=== PATIENT | female | born 1960 | race Caucasian/White ===

== ENCOUNTER 2019-01-04 07:32 | Inpatient (IN) | payer MEDICAID, OTHER ==
[~2019-01-04] VITALS: Ht 172.7 cm; Wt 82.2 kg
[2019-01-04] VITALS (12 sets, daily range): BP systolic 107–190; BP diastolic 61–128
[~2019-01-04 07:32] MED LIST: ALBU8.5H4 IH; AMLO1TAB13; HCTZ25T PO; LOP25T PO; SILV50CR31 TP
[2019-01-04 09:24] LABS: BASOPHILS % (AUTO) 0.2 % (0-1); EOSINOPHILS % (AUTO) 0.1 % (0-6); HEMATOCRIT 35.9 % (35.0-45.0); HEMOGLOBIN 12.3 g/dl (12.0-16.0); LYMPHOCYTES % (AUTO) 5.6 % (21-51); MEAN CORPUSCULAR HEMOGLOBIN 32.7 PG (27.0-31.0); MEAN CORPUSCULAR HGB CONC 34.3 g/dL (33.0-36.5); MEAN CORPUSCULAR VOLUME 95.5 FL (78-98); MEAN PLATELET VOLUME 6.8 FL (7.4-10.4); MONOCYTES # (AUTO) 1.1 X10'3 (0-0.9); MONOCYTES % (AUTO) 6.3 % (2-12); NEUTROPHILS % (AUTO) 87.8 % (42-75); PLATELET COUNT 147 X10'3 (140-440); RED BLOOD COUNT 3.75 X10'6 (4.20-5.60); RED CELL DISTRIBUTION WIDTH 14.5 % (11.5-14.5); WHITE BLOOD COUNT 18.2 X10'3 (4.5-11.0)
[2019-01-04 09:39] LABS: ALANINE AMINOTRANSFERASE 29 U/L (12-78); ALBUMIN 2.8 G/DL (3.4-5.0); ALBUMIN/GLOBULIN RATIO 0.6 (1.1-1.5); ALKALINE PHOSPHATASE 249 IU/L (46-116); ANION GAP 10 (8-16); ASPARTATE AMINO TRANSFERASE 47 U/L (10-37); BILIRUBIN,TOTAL 1.6 MG/DL (0.1-1.0); BLOOD UREA NITROGEN 10 MG/DL (7-18); BUN/CREATININE RATIO 23.3 (6.6-38.0); CHLORIDE 98 MMOL/L (99-107); CREATININE 0.43 MG/DL (0.40-0.90); GLUCOSE 128 MG/DL (70-104); POTASSIUM 3.4 MMOL/L (3.5-5.1); SODIUM 133 MMOL/L (135-145); TOTAL CARBON DIOXIDE 25.2 MMOL/L (24-32); TOTAL PROTEIN 7.7 G/DL (6.4-8.2); eGFR > 90 ML/MIN
[2019-01-04] MEDS ORDERED: normal saline 1000ML IV soln IV ONE (10:05)
[2019-01-04] MEDS ORDERED: piperacillin/tazo 4.5gm/100ml 100 ML IV ONE (10:05)
[2019-01-04 10:13] LABS: URINE HCG NEGATIVE (NEG)
[2019-01-04] MEDS ORDERED: LIDOcaine 1%/PF 5ML 10 MG/ML VIAL SQ ONE (10:15)
[2019-01-04] MEDS ORDERED: fentaNYL/PF 50MCG/1 ML 2ML syringe IV PRN (10:15)
[2019-01-04] MEDS ORDERED: midazolam 2 mg/2 ml injection IV PRN (10:15)
[2019-01-04 10:16] LABS: CLARITY,URINE CLEAR (Clear); GLUCOSE, URINE 100 mg/dl (Neg); KETONES,URINE >=80 mg/dl (Neg); LEUKOCYTE ESTERASE ,URINE NEGATIVE (Neg); NITRITES, URINE NEGATIVE (Neg); OCCULT BLOOD,URINE NEGATIVE (Neg); PROTEIN,URINE NEGATIVE (Neg); UROBILINOGEN,URINE >=8.0 E.U/dL (0.2-1.0)
[2019-01-04 10:17] LABS: UA COLLECTION TYPE FOLEY CATH
[2019-01-04 10:22] LABS: COLOR,URINE ORANGE (Yellow)
[2019-01-04 10:24] LABS: BACTERIA,URINE FEW /HPF (Neg); HYALINE CASTS 0-3 /LPF (NEGATIVE); RBC,URINE NONE SEEN /HPF (0-2); SQUAMOUS EPITHELIAL CELL,UR MANY /LPF (FEW); WBC,URINE 0-4 /HPF (0-4)
[2019-01-04 10:26] LABS: MUCUS STRANDS MODERATE /LPF (Neg); TRANSITIONAL EPI CELLS,URINE FEW /HPF
[2019-01-04] MEDS: normal saline 1000ml 1,000 ML IV SCH ×2 (10:44→21:16)
[2019-01-04] MEDS ORDERED: magnesium 2GM in 50ml NS 50 ML IV PRN (10:45)
[2019-01-04] MEDS ORDERED: diphenhydrAMINE 25mg capsule PO PRN (10:45)
[2019-01-04] MEDS ORDERED: ondansetron/PF 4mg/2ml inj IV PRN (10:45)
[2019-01-04] MEDS ORDERED: mag hydrox/Alum hydrox/simeth 30ml oral suspension PO PRN (10:45)
[2019-01-04] MEDS ORDERED: diphenhydrAMINE 50 mg/ml inj IV PRN (10:45)
[2019-01-04] MEDS ORDERED: acetaminophen 325mg tablet PO PRN ×2 (10:45)
[2019-01-04] MEDS ORDERED: HYDROcodone/acetaminophen 5mg/325mg tablet PO PRN (10:45)
[2019-01-04] MEDS ORDERED: metoclopramide 5 mg/ml inj IV PRN (10:45)
[2019-01-04] MEDS ORDERED: HYDROcodone/acetaminophen 10/325mg tab PO PRN (10:45)
[2019-01-04] MEDS ORDERED: potassium CL 10mEq/100ml bag 100 ML IV PRN ×2 (10:45)
[2019-01-04] MEDS ORDERED: bisacodyl 10mg suppository rectal RC PRN (10:45)
[2019-01-04] MEDS ORDERED: magnesium 4gm in 100ml NS 100 ML IV PRN (10:45)
[2019-01-04] MEDS ORDERED: magnesium hydroxide 30ml (MOM) UD suspension PO PRN (10:45)
[2019-01-04] MEDS ORDERED: CALC1TAB96 PO (10:58)
[2019-01-04] MEDS ORDERED: AMLO1CAP10 PO (10:58)
[2019-01-04] MEDS ORDERED: METO-411 PO (11:04)
--- NOTE | 2019-01-04 11:35 | NUR ---
attempted to call report to the surgical floor, advised to call back because nurse is with the doctor
[2019-01-04] MEDS ORDERED: midazolam 2 mg/2 ml injection ONE (11:38)
[2019-01-04] MEDS ORDERED: fentaNYL/PF 50MCG/1 ML 2ML syringe ONE ×2 (11:38→12:05)
[2019-01-04 11:51] LABS: MAGNESIUM 1.2 MG/DL (1.5-2.4)
[2019-01-04 11:54] LABS: PARTIAL THROMBOPLASTIN TIME 33 SECONDS (22-32)
--- NOTE | 2019-01-04 11:58 | NUR ---
GAVE REPORT TO SURGICAL NURSE, PATIENT CURRENTLY IN IR FOR PROCEDURE AND THEN WILL BE TRANSFERRED TO THE FLOOR
--- NOTE | 2019-01-04 12:03 | NUR ---
Patient in room ED 11. I have received report from Montserrat PIMENTEL and had the opportunity to ask questions and assume patient care. Patient has been reported as being currently in IR.
[2019-01-04] MEDS: potassium Cl 20 mEq SR tablet PO PRN ×2 (13:34→19:52)
[2019-01-04] MEDS: piperacillin/tazo 3.375gm/50ml 50 ML IV SCH ×2 (17:11→23:59)
--- NOTE | 2019-01-04 18:29 | NUR ---
Patient in room BA 346. I have received report from MARGARITO Beasley and had the opportunity to ask questions and assume patient care.
[2019-01-04] MEDS ORDERED: temazepam 15mg capsule PO PRN (21:00)
[2019-01-05] VITALS: BP 111/60
[2019-01-05 05:10] LABS: BASOPHILS % (AUTO) 0.1 % (0-1); EOSINOPHILS % (AUTO) 0.1 % (0-6); HEMATOCRIT 33.1 % (35.0-45.0); HEMOGLOBIN 11.3 g/dl (12.0-16.0); LYMPHOCYTES # (AUTO) 2.4 X10'3 (1.1-4.8); LYMPHOCYTES % (AUTO) 15.4 % (21-51); MEAN CORPUSCULAR HEMOGLOBIN 32.7 PG (27.0-31.0); MEAN PLATELET VOLUME 7.2 FL (7.4-10.4); MONOCYTES # (AUTO) 0.9 X10'3 (0-0.9); MONOCYTES % (AUTO) 6.1 % (2-12); NEUTROPHILS # (AUTO) 12.2 X10'3 (1.8-7.7); NEUTROPHILS % (AUTO) 78.3 % (42-75); PLATELET COUNT 132 X10'3 (140-440); RED BLOOD COUNT 3.45 X10'6 (4.20-5.60); RED CELL DISTRIBUTION WIDTH 14.8 % (11.5-14.5); WHITE BLOOD COUNT 15.6 X10'3 (4.5-11.0)
[2019-01-05 05:30] LABS: ANION GAP 10 (8-16); BILIRUBIN,TOTAL 1.4 MG/DL (0.1-1.0); BLOOD UREA NITROGEN 6 MG/DL (7-18); BUN/CREATININE RATIO 11.8 (6.6-38.0); CALCIUM 8.3 MG/DL (8.5-10.1); CHLORIDE 103 MMOL/L (99-107); CREATININE 0.51 MG/DL (0.40-0.90); GLUCOSE 90 MG/DL (70-104); MAGNESIUM 1.3 MG/DL (1.5-2.4); PHOSPHORUS 2.6 MG/DL (2.3-4.5); POTASSIUM 3.3 MMOL/L (3.5-5.1); SODIUM 136 MMOL/L (135-145); TOTAL CARBON DIOXIDE 23.4 MMOL/L (24-32); TOTAL PROTEIN 6.7 G/DL (6.4-8.2); eGFR > 90 ML/MIN
[2019-01-05 05:31] LABS: ALANINE AMINOTRANSFERASE 20 U/L (12-78); ALBUMIN 2.3 G/DL (3.4-5.0); ALBUMIN/GLOBULIN RATIO 0.5 (1.1-1.5); ALKALINE PHOSPHATASE 202 IU/L (46-116); ASPARTATE AMINO TRANSFERASE 28 U/L (10-37)
--- NOTE | 2019-01-05 06:22 | NUR ---
Problems reprioritized. Patient report given, questions answered & plan of care reviewed with MARGARITO Brooks.
--- NOTE | 2019-01-05 07:07 | NUR ---
Patient in room BA 346. I have received report from Todd PIMENTEL and had the opportunity to ask questions and assume patient care.
[2019-01-05 07:31] VITALS: BP 121/64
[2019-01-05] MEDS: magnesium Cl slow-release 64mg tablet PO PRN ×2 (07:57→15:06)
[2019-01-05] MEDS: enoxaparin 40mg/0.4ml syringe SQ SCH (07:58)
[2019-01-05] MEDS: piperacillin/tazo 3.375gm/50ml 50 ML IV SCH ×3 (07:59→23:21)
[2019-01-05] MEDS: potassium Cl 20 mEq SR tablet PO PRN ×2 (08:00→15:06)
[2019-01-05] MEDS: K and/or MAG REPLACEMENT MC SCH (08:00)
[2019-01-05] MEDS: normal saline 1000ml 1,000 ML IV SCH ×2 (08:01→17:13)
[2019-01-05 12:29] VITALS: BP 135/70
--- NOTE | 2019-01-05 13:58 | NUR ---
Malnutrition consult: Pt seen at bedside reports decreased PO intake r/t pain however upon meal review pt reports still eating three meals a day [employer]. Pt currently on heart healthy diet documented with 0% PO intake at dinner last night and 25% PO intake at breakfast this morning not meeting nutrient needs. Pt reports pain is improving as well as appetite. Pt reports she isn't sure of what her UBW is and that she's lost 8 lbs over the last three months; this is non significant wt loss of 4% in three months. Pt with no edema, decrease in muscle strength, or visible fat/muscle wasting. Pt currently does not meet criteria for malnutrition. Pt admit with diverticular abscess and provided with written and verbal protein education. Pt also provided with alternative heart healthy menu to provide additional food options and RD contact information. Will continue to follow. Addendum: 01/05/19 at [address] Amended: Links added.
--- NOTE | 2019-01-05 18:06 | NUR ---
Problems reprioritized. Patient report given, questions answered & plan of care reviewed with Akanksha Ortiz RN.
[2019-01-05] MEDS ORDERED: amLODIPine 5mg tablet PO SCH (18:25)
[2019-01-05] MEDS: lactobacillus rhamnosus 10,000 MMU CELLS/CAPSULE PO SCH (19:36)
[2019-01-05 20:00] VITALS: BP 139/84
[2019-01-05] MEDS: diatr meglu/diatrizoate 30ml oral sol.-(3 dose) bottle PO SCH (21:56)
[2019-01-06] VITALS: BP 105/69
[2019-01-06] MEDS: normal saline 1000ml 1,000 ML IV SCH ×2 (02:19→13:04)
[2019-01-06 04:48] LABS: BASOPHILS % (AUTO) 0.2 % (0-1); EOSINOPHILS % (AUTO) 0.5 % (0-6); HEMATOCRIT 30.5 % (35.0-45.0); HEMOGLOBIN 10.4 g/dl (12.0-16.0); LYMPHOCYTES # (AUTO) 2.1 X10'3 (1.1-4.8); LYMPHOCYTES % (AUTO) 21.8 % (21-51); MEAN CORPUSCULAR HEMOGLOBIN 32.8 PG (27.0-31.0); MEAN CORPUSCULAR HGB CONC 34.1 g/dL (33.0-36.5); MEAN CORPUSCULAR VOLUME 96.2 FL (78-98); MEAN PLATELET VOLUME 7.3 FL (7.4-10.4); MONOCYTES # (AUTO) 0.6 X10'3 (0-0.9); NEUTROPHILS # (AUTO) 6.9 X10'3 (1.8-7.7); NEUTROPHILS % (AUTO) 71.5 % (42-75); PLATELET COUNT 116 X10'3 (140-440); RED BLOOD COUNT 3.17 X10'6 (4.20-5.60); RED CELL DISTRIBUTION WIDTH 14.3 % (11.5-14.5); WHITE BLOOD COUNT 9.6 X10'3 (4.5-11.0)
[2019-01-06 05:01] LABS: ALANINE AMINOTRANSFERASE 14 U/L (12-78); ALBUMIN 2.1 G/DL (3.4-5.0); ALBUMIN/GLOBULIN RATIO 0.5 (1.1-1.5); ALKALINE PHOSPHATASE 219 IU/L (46-116); ANION GAP 9 (8-16); ASPARTATE AMINO TRANSFERASE 31 U/L (10-37); BILIRUBIN,TOTAL 1.2 MG/DL (0.1-1.0); BLOOD UREA NITROGEN 4 MG/DL (7-18); BUN/CREATININE RATIO 7.3 (6.6-38.0); CALCIUM 8.2 MG/DL (8.5-10.1); CHLORIDE 104 MMOL/L (99-107); CREATININE 0.55 MG/DL (0.40-0.90); GLUCOSE 98 MG/DL (70-104); MAGNESIUM 1.4 MG/DL (1.5-2.4); PHOSPHORUS 2.3 MG/DL (2.3-4.5); POTASSIUM 3.5 MMOL/L (3.5-5.1); SODIUM 135 MMOL/L (135-145); TOTAL CARBON DIOXIDE 22.5 MMOL/L (24-32); TOTAL PROTEIN 6.4 G/DL (6.4-8.2); eGFR > 90 ML/MIN
[2019-01-06 06:30] VITALS: BP 152/78
--- NOTE | 2019-01-06 06:48 | NUR ---
Problems reprioritized. Patient report given, questions answered & plan of care reviewed with MARGARITO Unger.
[2019-01-06 07:20] VITALS: BP 154/95
[2019-01-06] MEDS: diatr meglu/diatrizoate 30ml oral sol.-(3 dose) bottle PO SCH ×2 (07:45→12:46)
[2019-01-06] MEDS: piperacillin/tazo 3.375gm/50ml 50 ML IV SCH ×3 (07:46→23:35)
[2019-01-06] MEDS: metoprolol succinate 25mg (24-HOUR) SR. Tablet PO SCH (07:51)
[2019-01-06] MEDS: lactobacillus rhamnosus 10,000 MMU CELLS/CAPSULE PO SCH ×2 (07:52→19:10)
[2019-01-06] MEDS: enoxaparin 40mg/0.4ml syringe SQ SCH (07:52)
[2019-01-06] MEDS: lisinopril 20mg tablet PO SCH (07:53)
[2019-01-06] MEDS: magnesium Cl slow-release 64mg tablet PO PRN ×2 (07:55→17:18)
[2019-01-06] MEDS: K and/or MAG REPLACEMENT MC SCH (07:59)
[2019-01-06 11:00] VITALS: BP 160/85
--- NOTE | 2019-01-06 11:11 | NUR ---
400ml emptied from [facility]. Urine orange/yellow color; slightly cloudy; strong odor. Addendum: 01/06/19 at 1112 by Ubaldo SAMUEL Amended: Links added.
--- NOTE | 2019-01-06 12:49 | NUR ---
Pt. taken off floor to CT.
--- NOTE | 2019-01-06 13:30 | NUR ---
Pt. returned to floor. Fluids started.
--- NOTE | 2019-01-06 14:16 | NUR ---
PAGER ID: [phone] MESSAGE: Corrine GutierrezA Laney has rounded on this pt. Please call me regarding her care. Thank you, Ute [phone]
--- NOTE | 2019-01-06 18:29 | NUR ---
Gave report to Angel PIMENTEL.
--- NOTE | 2019-01-06 18:47 | NUR ---
Patient in room BA 346. I have received report from MARGARITO Unger and had the opportunity to ask questions and assume patient care.
[2019-01-06 20:00] VITALS: BP 139/76
[2019-01-07] VITALS: BP 148/86
[2019-01-07] MEDS: normal saline 1000ml 1,000 ML IV SCH (01:01)
[2019-01-07 02:48] LABS: BASOPHILS % (AUTO) 0.1 % (0-1); EOSINOPHILS % (AUTO) 0.5 % (0-6); HEMATOCRIT 31.4 % (35.0-45.0); HEMOGLOBIN 10.7 g/dl (12.0-16.0); LYMPHOCYTES # (AUTO) 1.8 X10'3 (1.1-4.8); LYMPHOCYTES % (AUTO) 19.6 % (21-51); MEAN CORPUSCULAR HEMOGLOBIN 32.8 PG (27.0-31.0); MEAN CORPUSCULAR HGB CONC 34.2 g/dL (33.0-36.5); MEAN PLATELET VOLUME 7.6 FL (7.4-10.4); MONOCYTES # (AUTO) 0.6 X10'3 (0-0.9); MONOCYTES % (AUTO) 6.8 % (2-12); NEUTROPHILS # (AUTO) 6.8 X10'3 (1.8-7.7); PLATELET COUNT 141 X10'3 (140-440); RED BLOOD COUNT 3.27 X10'6 (4.20-5.60); RED CELL DISTRIBUTION WIDTH 14.5 % (11.5-14.5); WHITE BLOOD COUNT 9.3 X10'3 (4.5-11.0)
[2019-01-07 02:57] LABS: ALANINE AMINOTRANSFERASE 15 U/L (12-78); ALBUMIN 2.2 G/DL (3.4-5.0); ALBUMIN/GLOBULIN RATIO 0.5 (1.1-1.5); ALKALINE PHOSPHATASE 261 IU/L (46-116); ANION GAP 10 (8-16); ASPARTATE AMINO TRANSFERASE 34 U/L (10-37); BILIRUBIN,TOTAL 1.3 MG/DL (0.1-1.0); BLOOD UREA NITROGEN 3 MG/DL (7-18); BUN/CREATININE RATIO 5.4 (6.6-38.0); CALCIUM 8.2 MG/DL (8.5-10.1); CHLORIDE 100 MMOL/L (99-107); CREATININE 0.56 MG/DL (0.40-0.90); GLUCOSE 95 MG/DL (70-104); MAGNESIUM 1.3 MG/DL (1.5-2.4); PHOSPHORUS 2.3 MG/DL (2.3-4.5); POTASSIUM 3.4 MMOL/L (3.5-5.1); SODIUM 133 MMOL/L (135-145); TOTAL CARBON DIOXIDE 23.1 MMOL/L (24-32); TOTAL PROTEIN 6.7 G/DL (6.4-8.2); eGFR > 90 ML/MIN
--- NOTE | 2019-01-07 06:29 | NUR ---
Problems reprioritized. Patient report given, questions answered & plan of care reviewed with MARGARITO Blackman.
--- NOTE | 2019-01-07 06:33 | NUR ---
Patient in room BA 346. I have received report from Beth PIMENTEL and had the opportunity to ask questions and assume patient care.
[2019-01-07] MEDS: piperacillin/tazo 3.375gm/50ml 50 ML IV SCH (07:14)
[2019-01-07] MEDS: potassium Cl 20 mEq SR tablet PO PRN (07:16)
[2019-01-07] MEDS: lisinopril 20mg tablet PO SCH (07:17)
[2019-01-07] MEDS: lactobacillus rhamnosus 10,000 MMU CELLS/CAPSULE PO SCH (07:17)
[2019-01-07] MEDS: metoprolol succinate 25mg (24-HOUR) SR. Tablet PO SCH (07:18)
[2019-01-07] MEDS: enoxaparin 40mg/0.4ml syringe SQ SCH (07:19)
[2019-01-07] MEDS: magnesium Cl slow-release 64mg tablet PO PRN (07:24)
[2019-01-07] MEDS: K and/or MAG REPLACEMENT MC SCH (07:30)
[2019-01-07 07:40] VITALS: BP 131/83
[2019-01-07] MEDS ORDERED: amLODIPine 5mg tablet PO SCH ×2 (07:41→08:00)
[2019-01-07] MEDS ORDERED: lisinopril 20mg tablet PO SCH (08:00)
[2019-01-07] MEDS ORDERED: AMOX-422 PO (08:23)
[2019-01-07 08:34] VITALS: BP 131/83
--- NOTE | 2019-01-07 10:20 | NUR ---
Patient D/C home per Dr. Mendoza in stable conditions. Discharge and medication instruction given to pt. I.V removed. Education on empting KAYLI drainage given. pt left the hospital by self via private vehicle.
== END 2019-01-07 10:15 | disposition home or self-care (01) | DRG 720 ==
LOC: ER 07:33 → ED HOLD 11:00 → SUR 3N 12:34
PROVIDERS: ADMIT Family Medicine; ATTEND Family Medicine
PROC: 0W9J30Z Drainage of Pelvic Cavity with Drainage Device, Percutaneous Approach (ICD-10-PCS; principal; 2019-01-04)
DX: A41.9 Sepsis, unspecified organism (principal); E43 Unspecified severe protein-calorie malnutrition; K65.1 Peritoneal abscess; D68.9 Coagulation defect, unspecified; E87.1 Hypo-osmolality and hyponatremia; E83.42 Hypomagnesemia; K76.0 Fatty (change of) liver, not elsewhere classified; K57.20 Diverticulitis of large intestine with perforation and abscess without bleeding; E66.9 Obesity, unspecified; R74.0 Nonspecific elevation of levels of transaminase and lactic acid dehydrogenase [LDH]; F12.90 Cannabis use, unspecified, uncomplicated; R01.1 Cardiac murmur, unspecified; B96.20 Unspecified Escherichia coli [E. coli] as the cause of diseases classified elsewhere; D64.9 Anemia, unspecified; E87.6 Hypokalemia; I10 Essential (primary) hypertension; N13.9 Obstructive and reflux uropathy, unspecified; N73.9 Female pelvic inflammatory disease, unspecified; Z87.442 Personal history of urinary calculi; Z68.27 Body mass index [BMI] 27.0-27.9, adult
CPT/HCPCS: 36415; 49406; 71045; 74176; 74177; 80053; 81001; 81025; 83605; 83735; 84100; 84145; 85025; 85610; 85730; 87040; 87070; 87077; 87081; 87186; 93005; 99152; 99153; 99285; G0378; J1650; J2250; J2543; J3010; J7030; Q9963

== ENCOUNTER 2019-01-20 16:56 | Emergency (ER) | payer MEDICAID, OTHER ==
[~2019-01-20] VITALS: Ht 170.2 cm; Wt 88.6 kg
[~2019-01-20 16:56] MED LIST changes: -ALBU8.5H4 IH; +AMLO1CAP10 PO; -AMLO1TAB13; +CALC1TAB96 PO; -LOP25T PO; +METO-411 PO; -SILV50CR31 TP
[2019-01-20 17:00] VITALS: BP 121/76
== END 2019-01-20 18:16 | disposition home or self-care (01) ==
LOC: ER 16:57
DX: K63.89 Other specified diseases of intestine (principal); Z48.00 Encounter for change or removal of nonsurgical wound dressing; I10 Essential (primary) hypertension; F10.99 Alcohol use, unspecified with unspecified alcohol-induced disorder; Z98.890 Other specified postprocedural states; Z79.899 Other long term (current) drug therapy; Y90.9 Presence of alcohol in blood, level not specified
CPT/HCPCS: 99281

== ENCOUNTER 2019-02-07 08:15 | Inpatient (IN) | payer MEDICAID, OTHER ==
[~2019-02-07] VITALS: Ht 170.2 cm; Wt 78.4 kg
[2019-02-07] MEDS ORDERED: normal saline 1000ML IV soln IVB ONE (08:45)
[2019-02-07 09:55] LABS: BASOPHILS % (AUTO) 0.3 % (0-1); EOSINOPHILS # (AUTO) 0.1 X10'3 (0-0.9); EOSINOPHILS % (AUTO) 0.7 % (0-6); HEMOGLOBIN 10.6 g/dl (12.0-16.0); LYMPHOCYTES # (AUTO) 2.4 X10'3 (1.1-4.8); LYMPHOCYTES % (AUTO) 25.7 % (21-51); MEAN CORPUSCULAR HGB CONC 34.2 g/dL (33.0-36.5); MEAN CORPUSCULAR VOLUME 93.4 FL (78-98); MEAN PLATELET VOLUME 6.1 FL (7.4-10.4); MONOCYTES # (AUTO) 0.6 X10'3 (0-0.9); MONOCYTES % (AUTO) 6.2 % (2-12); NEUTROPHILS # (AUTO) 6.3 X10'3 (1.8-7.7); NEUTROPHILS % (AUTO) 67.1 % (42-75); PLATELET COUNT 300 X10'3 (140-440); RED BLOOD COUNT 3.32 X10'6 (4.20-5.60); RED CELL DISTRIBUTION WIDTH 14.3 % (11.5-14.5); WHITE BLOOD COUNT 9.4 X10'3 (4.5-11.0)
[2019-02-07 10:07] LABS: PARTIAL THROMBOPLASTIN TIME 31 SECONDS (22-32)
[2019-02-07 10:10] LABS: ALANINE AMINOTRANSFERASE 24 U/L (12-78); ALBUMIN 2.7 G/DL (3.4-5.0); ALBUMIN/GLOBULIN RATIO 0.5 (1.1-1.5); ALKALINE PHOSPHATASE 358 IU/L (46-116); ANION GAP 8 (8-16); ASPARTATE AMINO TRANSFERASE 45 U/L (10-37); BILIRUBIN,TOTAL 0.4 MG/DL (0.1-1.0); BLOOD UREA NITROGEN 3 MG/DL (7-18); BUN/CREATININE RATIO 5.2 (6.6-38.0); CALCIUM 8.3 MG/DL (8.5-10.1); CHLORIDE 103 MMOL/L (99-107); CREATININE 0.58 MG/DL (0.40-0.90); GLUCOSE 85 MG/DL (70-104); MAGNESIUM 1.4 MG/DL (1.5-2.4); POTASSIUM 3.6 MMOL/L (3.5-5.1); SODIUM 137 MMOL/L (135-145); TOTAL CARBON DIOXIDE 26.1 MMOL/L (24-32); TOTAL PROTEIN 8.4 G/DL (6.4-8.2); eGFR > 90 ML/MIN
--- NOTE | 2019-02-07 10:13 | NUR ---
pt is waiting for ct
[2019-02-07] MEDS ORDERED: iohexol 300mg/ml 100ml inj. ONE (10:16)
[2019-02-07 10:25] LABS: CLARITY,URINE CLEAR (Clear); COLOR,URINE STRAW (Yellow); GLUCOSE, URINE NEGATIVE (Neg); KETONES,URINE NEGATIVE (Neg); LEUKOCYTE ESTERASE ,URINE NEGATIVE (Neg); NITRITES, URINE NEGATIVE (Neg); OCCULT BLOOD,URINE NEGATIVE (Neg); PROTEIN,URINE NEGATIVE (Neg)
[2019-02-07 10:27] LABS: UA COLLECTION TYPE CLN CATCH MIDSTREAM
[2019-02-07] MEDS ORDERED: piperacillin/tazo 3.375gm/50ml 50 ML IV ONE (12:05)
[2019-02-07] MEDS ORDERED: morphine 2 MG/ML inj. syringe IV PRN ×2 (12:15)
[2019-02-07] MEDS ORDERED: potassium CL 10mEq/100ml bag 100 ML IV PRN ×2 (12:15)
[2019-02-07] MEDS ORDERED: ondansetron/PF 4mg/2ml inj IV PRN ×2 (12:15→16:40)
[2019-02-07] MEDS ORDERED: magnesium 2GM in 50ml NS 50 ML IV PRN (12:15)
[2019-02-07] MEDS ORDERED: magnesium hydroxide 30ml (MOM) UD suspension PO PRN (12:15)
[2019-02-07] MEDS ORDERED: acetaminophen 325mg tablet PO PRN ×2 (12:15)
[2019-02-07] MEDS ORDERED: magnesium 4gm in 100ml NS 100 ML IV PRN (12:15)
[2019-02-07] MEDS ORDERED: mag hydrox/Alum hydrox/simeth 30ml oral suspension PO PRN (12:15)
[2019-02-07] MEDS ORDERED: potassium Cl 20 mEq SR tablet PO PRN (12:15)
[2019-02-07] MEDS ORDERED: magnesium Cl slow-release 64mg tablet PO PRN (12:15)
[2019-02-07] MEDS: dextrose 5%-1/2 normal saline 1,000 ML IV SCH (12:52)
[2019-02-07] MEDS ORDERED: ceFAZolin 1000mg inj ONE (13:35)
--- NOTE | 2019-02-07 13:41 | NUR ---
GAVE REPORT TO SENIOR TECHNICAL SPECIALISTMARGARITO JOHNSON. PLAN AT THIS TIME IS FOR PT TO GO TO OR AT 1530, PT LAST ORAL INTAKE WAS 1999 LAST NIGHT PER PT.
--- NOTE | 2019-02-07 13:57 | NUR ---
Report received from Marion PIMENTEL, awaiting arrival of pt.
--- NOTE | 2019-02-07 14:48 | NUR ---
Pt has arrived to floor. Stable, awaiting surgery.
[2019-02-07 15:00] VITALS: BP 165/91
[2019-02-07 15:27] VITALS: BP 165/91
[2019-02-07] MEDS ORDERED: meperidine/PF 25mg/ml syringe IV PRN ×3 (16:40)
[2019-02-07] MEDS ORDERED: proCHLORperazine 10 MG/2 ml inj IV PRN (16:40)
[2019-02-07] MEDS ORDERED: ringers solution, lacted 1,000 ML IV SCH (16:40)
[2019-02-07] MEDS ORDERED: morphine 4 MG/ML inj SYRINge IV PRN ×2 (16:40)
[2019-02-07] MEDS: piperacillin/tazo 3.375gm/50ml 50 ML IV SCH ×2 (17:53→18:42)
--- NOTE | 2019-02-07 19:13 | NUR ---
Problems reprioritized. Patient report given, questions answered & plan of care reviewed with Akanksha PIMENTEL .
[2019-02-07 20:00] VITALS: BP_SYST 124; BP_SYST 143; BP_DIAS 74; BP_DIAS 84
[2019-02-07] MEDS: K and/or MAG REPLACEMENT MC SCH (20:00)
[2019-02-07] MEDS: calcium carbonate/vitamin D3 tablet PO SCH (21:33)
[2019-02-07] MEDS: HYDROcodone/acetaminophen 5mg/325mg tablet PO PRN (21:35)
[2019-02-08] VITALS (13 sets, daily range): BP systolic 107–153; BP diastolic 61–87
[2019-02-08] MEDS: dextrose 5%-1/2 normal saline 1,000 ML IV SCH ×2 (00:13→09:43)
[2019-02-08] MEDS: piperacillin/tazo 3.375gm/50ml 50 ML IV SCH ×3 (00:14→16:50)
--- NOTE | 2019-02-08 04:30 | NUR ---
Drain dislodged from patient when up to restroom. Prepped for surgery. DARTed and swabbed.
[2019-02-08 05:29] LABS: BASOPHILS % (AUTO) 0.2 % (0-1); EOSINOPHILS # (AUTO) 0.1 X10'3 (0-0.9); EOSINOPHILS % (AUTO) 0.9 % (0-6); HEMATOCRIT 28.4 % (35.0-45.0); HEMOGLOBIN 9.7 g/dl (12.0-16.0); LYMPHOCYTES # (AUTO) 2.2 X10'3 (1.1-4.8); LYMPHOCYTES % (AUTO) 20.2 % (21-51); MEAN CORPUSCULAR HEMOGLOBIN 32.1 PG (27.0-31.0); MEAN CORPUSCULAR HGB CONC 34.3 g/dL (33.0-36.5); MEAN CORPUSCULAR VOLUME 93.7 FL (78-98); MEAN PLATELET VOLUME 6.2 FL (7.4-10.4); MONOCYTES # (AUTO) 0.9 X10'3 (0-0.9); NEUTROPHILS # (AUTO) 7.6 X10'3 (1.8-7.7); NEUTROPHILS % (AUTO) 70.7 % (42-75); PLATELET COUNT 252 X10'3 (140-440); RED BLOOD COUNT 3.04 X10'6 (4.20-5.60); RED CELL DISTRIBUTION WIDTH 13.9 % (11.5-14.5); WHITE BLOOD COUNT 10.7 X10'3 (4.5-11.0)
[2019-02-08 05:36] LABS: PARTIAL THROMBOPLASTIN TIME 34 SECONDS (22-32)
[2019-02-08 05:38] LABS: ALBUMIN 2.3 G/DL (3.4-5.0); ANION GAP 8 (8-16); BLOOD UREA NITROGEN 5 MG/DL (7-18); BUN/CREATININE RATIO 7.4 (6.6-38.0); CALCIUM 8.4 MG/DL (8.5-10.1); CHLORIDE 101 MMOL/L (99-107); CREATININE 0.68 MG/DL (0.40-0.90); GLUCOSE 101 MG/DL (70-104); MAGNESIUM 1.5 MG/DL (1.5-2.4); POTASSIUM 3.6 MMOL/L (3.5-5.1); SODIUM 133 MMOL/L (135-145); eGFR 89 ML/MIN
--- NOTE | 2019-02-08 06:30 | NUR ---
Patient in room BA 350. I have received report from MARCOS Ortiz RN and had the opportunity to ask questions and assume patient care.
--- NOTE | 2019-02-08 06:37 | NUR ---
Problems reprioritized. Patient report given, questions answered & plan of care reviewed with MARGARITO Billings.
[2019-02-08] MEDS: K and/or MAG REPLACEMENT MC SCH ×2 (08:00→20:00)
[2019-02-08] MEDS: lisinopril 20mg tablet PO SCH (09:38)
[2019-02-08] MEDS: amLODIPine 5mg tablet PO SCH (09:39)
[2019-02-08] MEDS: metoprolol succinate 25mg (24-HOUR) SR. Tablet PO SCH (09:42)
[2019-02-08] MEDS: calcium carbonate/vitamin D3 tablet PO SCH ×2 (09:45→19:32)
--- NOTE | 2019-02-08 09:48 | NUR ---
PT DROPPED OF OF HER NORVASC PILLS. PULLED ANOTHER 5MG OUT OF THE OMNICELL
[2019-02-08] MEDS ORDERED: fentaNYL/PF 50MCG/1 ML 2ML syringe ONE (14:12)
[2019-02-08] MEDS ORDERED: midazolam 2 mg/2 ml injection ONE (14:12)
--- NOTE | 2019-02-08 18:05 | NUR ---
Patient in room BA 350. I have received report from MARGARITO Billings and had the opportunity to ask questions and assume patient care.
--- NOTE | 2019-02-08 18:07 | NUR ---
Problems reprioritized. Patient report given, questions answered & plan of care reviewed with ashely graves rn.
[2019-02-08] MEDS: HYDROcodone/acetaminophen 5mg/325mg tablet PO PRN (19:32)
[2019-02-09] MEDS: HYDROcodone/acetaminophen 5mg/325mg tablet PO PRN ×2 (01:30→09:30)
[2019-02-09] MEDS: piperacillin/tazo 3.375gm/50ml 50 ML IV SCH ×2 (01:31→09:31)
[2019-02-09 05:26] LABS: BASOPHILS % (AUTO) 0.3 % (0-1); EOSINOPHILS # (AUTO) 0.1 X10'3 (0-0.9); HEMATOCRIT 29.1 % (35.0-45.0); HEMOGLOBIN 9.9 g/dl (12.0-16.0); LYMPHOCYTES # (AUTO) 2.4 X10'3 (1.1-4.8); LYMPHOCYTES % (AUTO) 30.1 % (21-51); MEAN CORPUSCULAR HEMOGLOBIN 31.7 PG (27.0-31.0); MEAN PLATELET VOLUME 6.6 FL (7.4-10.4); MONOCYTES # (AUTO) 0.5 X10'3 (0-0.9); MONOCYTES % (AUTO) 6.8 % (2-12); NEUTROPHILS # (AUTO) 4.9 X10'3 (1.8-7.7); NEUTROPHILS % (AUTO) 61.8 % (42-75); PLATELET COUNT 242 X10'3 (140-440); RED BLOOD COUNT 3.13 X10'6 (4.20-5.60); WHITE BLOOD COUNT 7.9 X10'3 (4.5-11.0)
[2019-02-09 05:34] LABS: ALBUMIN 2.3 G/DL (3.4-5.0); ANION GAP 4 (8-16); BLOOD UREA NITROGEN 5 MG/DL (7-18); BUN/CREATININE RATIO 7.9 (6.6-38.0); CALCIUM 8.6 MG/DL (8.5-10.1); CHLORIDE 104 MMOL/L (99-107); CREATININE 0.63 MG/DL (0.40-0.90); GLUCOSE 91 MG/DL (70-104); MAGNESIUM 1.7 MG/DL (1.5-2.4); POTASSIUM 3.4 MMOL/L (3.5-5.1); SODIUM 136 MMOL/L (135-145); TOTAL CARBON DIOXIDE 27.6 MMOL/L (24-32); eGFR > 90 ML/MIN
--- NOTE | 2019-02-09 06:43 | NUR ---
Problems reprioritized. Patient report given, questions answered & plan of care reviewed with MARGARITO Unger.
[2019-02-09 07:00] VITALS: BP 125/73
[2019-02-09] MEDS: K and/or MAG REPLACEMENT MC SCH (08:00)
[2019-02-09] MEDS: calcium carbonate/vitamin D3 tablet PO SCH (09:28)
[2019-02-09] MEDS: amLODIPine 5mg tablet PO SCH (09:28)
[2019-02-09] MEDS: lisinopril 20mg tablet PO SCH (09:29)
[2019-02-09] MEDS: potassium Cl 20 mEq SR tablet PO PRN ×2 (09:29→13:50)
[2019-02-09] MEDS: metoprolol succinate 25mg (24-HOUR) SR. Tablet PO SCH (09:30)
[2019-02-09 11:00] VITALS: BP 112/66
[2019-02-09] MEDS ORDERED: enoxaparin 40mg/0.4ml syringe SUBCUT SCH (13:20)
[2019-02-09] MEDS ORDERED: LEVO750T21 PO (15:36)
[2019-02-09] MEDS ORDERED: METR-159 PO (15:36)
--- NOTE | 2019-02-09 16:20 | NUR ---
Called MD Davison to verify discharge. he is ok with it.
--- NOTE | 2019-02-09 16:30 | NUR ---
PT. DISCHARGED. AWARE TO GRILL CHEF PRESCRIPTIONS. IV DC'D. BELONGINGS TAKEN WITH PT.
== END 2019-02-09 16:49 | disposition home or self-care (01) | DRG 244 ==
LOC: ER 08:17 → ED HOLD 12:36 → EDBEDREQ 13:24 → SUR 3N 14:39 → UNDODISIN 02-09 16:05
PROVIDERS: ADMIT Hospitalist; ATTEND Hospitalist
PROC: BW211ZZ Computerized Tomography (CT Scan) of Abdomen and Pelvis using Low Osmolar Contrast (ICD-10-PCS; 2019-02-07)
PROC: 0W9J30Z Drainage of Pelvic Cavity with Drainage Device, Percutaneous Approach (ICD-10-PCS; principal; 2019-02-08)
DX: K57.20 Diverticulitis of large intestine with perforation and abscess without bleeding (principal); K76.0 Fatty (change of) liver, not elsewhere classified; D35.02 Benign neoplasm of left adrenal gland; N73.9 Female pelvic inflammatory disease, unspecified; I10 Essential (primary) hypertension; K42.9 Umbilical hernia without obstruction or gangrene; K80.20 Calculus of gallbladder without cholecystitis without obstruction; R33.9 Retention of urine, unspecified; Z79.899 Other long term (current) drug therapy
CPT/HCPCS: 36415; 49406; 74177; 80048; 80053; 81003; 83605; 83735; 85025; 85610; 85730; 87040; 87070; 87077; 87081; 87186; 96365; 99152; 99153; 99285; G0378; J0690; J1650; J2250; J2543; J3010; J7120; Q9967

== ENCOUNTER 2019-07-08 08:01 | Inpatient (IN) | payer MEDICAID ==
[2019-07-01 14:18] LABS: BASOPHILS % (AUTO) 0.6 % (0-1); EOSINOPHILS # (AUTO) 0.1 X10'3 (0-0.9); LYMPHOCYTES # (AUTO) 2.4 X10'3 (1.1-4.8); LYMPHOCYTES % (AUTO) 44.9 % (21-51); MEAN CORPUSCULAR HEMOGLOBIN 31.8 PG (27.0-31.0); MEAN CORPUSCULAR HGB CONC 33.6 g/dL (33.0-36.5); MEAN CORPUSCULAR VOLUME 94.7 FL (78-98); MEAN PLATELET VOLUME 7.6 FL (7.4-10.4); MONOCYTES # (AUTO) 0.3 X10'3 (0-0.9); MONOCYTES % (AUTO) 5.4 % (2-12); NEUTROPHILS # (AUTO) 2.6 X10'3 (1.8-7.7); NEUTROPHILS % (AUTO) 47.1 % (42-75); PRE OP HEMATOCRIT 41.2 % (35.0-45.0); PRE OP HEMOGLOBIN 13.8 g/dL (12.0-16.0); PRE OP PLATELET COUNT 160 X10'3 (140-440); RED BLOOD COUNT 4.35 X10'6 (4.20-5.60); RED CELL DISTRIBUTION WIDTH 14.1 % (11.5-14.5)
[2019-07-01 14:27] LABS: CLARITY,URINE CLOUDY (Clear); COLOR,URINE YELLOW (Yellow); GLUCOSE, URINE NEGATIVE (Neg); KETONES,URINE NEGATIVE (Neg); LEUKOCYTE ESTERASE ,URINE SMALL (Neg); NITRITES, URINE NEGATIVE (Neg); OCCULT BLOOD,URINE NEGATIVE (Neg); PROTEIN,URINE NEGATIVE (Neg); UA COLLECTION TYPE CLN CATCH MIDSTREAM; UROBILINOGEN,URINE 0.2 E.U/dL (0.2-1.0)
[2019-07-01 14:32] LABS: PRE OP INR 1.1 INR; PRE OP PROTIME 11.3 SECONDS (9.0-12.0)
[2019-07-01 14:35] LABS: ALBUMIN 3.5 G/DL (3.4-5.0); ALBUMIN/GLOBULIN RATIO 0.9 (1.1-1.5); ALKALINE PHOSPHATASE 402 IU/L (46-116); BLOOD UREA NITROGEN 3 MG/DL (7-18); CALCIUM 8.5 MG/DL (8.5-10.1); CHLORIDE 100 MMOL/L (99-107); PRE OP ALT 50 U/L (30-65); PRE OP ANION GAP 12 (8-16); PRE OP AST 93 U/L (10-37); PRE OP BILIRUB, TOTAL 0.6 MG/DL (0.0-1.0); PRE OP GLUCOSE 90 MG/DL (70-104); PRE OP POTASSIUM 3.9 MMOL/L (3.4-5.1); PRE OP SODIUM 134 MMOL/L (135-145); TOTAL PROTEIN 7.5 G/DL (6.4-8.2); eGFR > 90 ML/MIN
[2019-07-01 14:36] LABS: BACTERIA,URINE 2+ /HPF (Neg); RBC,URINE 0-2 /HPF (0-2); SQUAMOUS EPITHELIAL CELL,UR MANY /LPF (FEW)
[2019-07-01 14:37] LABS: WBC,URINE 0-4 /HPF (0-4)
[~2019-07-08] VITALS: Ht 170.2 cm; Wt 80.1 kg
[2019-07-08] VITALS (17 sets, daily range): BP systolic 109–174; BP diastolic 67–103
[~2019-07-08 08:01] MED LIST changes: +CALC-1200 PO; -CALC1TAB96 PO; +DOCUMENT DATE & TIME OF BETA-BLOCKER PO ONE; -HCTZ25T PO; +ceFOXitin sod/dextrose 2g/50ml 50 ML IV ONE; +famotidine 20mg tablet PO ONE; +ringers solution, lacted 1,000 ML IV SCH
[2019-07-08] MEDS ORDERED: clindamycin phosphate 150mg/ml inj. ONE (11:18)
[2019-07-08] MEDS ORDERED: gentamicin 40 MG/1 ML inj ONE (11:18)
[2019-07-08] MEDS ORDERED: sevoflurane 250ml liquid IH ONE (11:24)
[2019-07-08] MEDS ORDERED: acetaminophen 1000 MG/100ml vial IV ONE (11:24)
[2019-07-08] MEDS ORDERED: labetalol 20mg/4ml (5mg/ml) syringe IV ONE (11:24)
[2019-07-08] MEDS ORDERED: fentaNYL/PF 50MCG/1 ML 2ML syringe ONE (11:32)
[2019-07-08] MEDS ORDERED: midazolam 2 mg/2 ml injection ONE (11:34)
[2019-07-08] MEDS ORDERED: rocuronium 10mg/ml inj IV ONE ×2 (11:40→14:05)
[2019-07-08] MEDS ORDERED: propofol inj 20 ML IV ONE (11:40)
[2019-07-08] MEDS ORDERED: LIDOcaine 2% (20mg/ml) 5ml vial ONE (11:40)
[2019-07-08] MEDS ORDERED: fentaNYL /PF 50mcg/ml 5ml ampule ONE (11:54)
[2019-07-08] MEDS ORDERED: dexamethasone sod phosphate 4mg/ml inj. ONE (12:05)
[2019-07-08] MEDS ORDERED: ondansetron/PF 4mg/2ml inj ONE (12:05)
[2019-07-08] MEDS ORDERED: metoprolol tartrate 1mg/ml inj IV ONE (12:10)
[2019-07-08] MEDS ORDERED: BUPIVAcaine/PF 2.5 mg/ml (0.25%) 30ml vial ONE (12:18)
[2019-07-08] MEDS ORDERED: BUPIVACAINE liposomal/PF 13.3 MG/ML vial IM ONE (12:19)
[2019-07-08] MEDS ORDERED: morphine 10mg/ml inj. ONE (14:04)
[2019-07-08] MEDS ORDERED: neostigmine methylsulfate 1 MG/ML 10ml vial ONE (14:05)
[2019-07-08] MEDS ORDERED: glycopyrrolate 0.2mg/ml inj ONE (14:05)
--- NOTE | 2019-07-08 14:40 | NUR ---
Received from OR via SURGICAL BED , accompanied by Anesthesiologist LIONEL and report given by Anesthesiolgist. PATIENT WITH LARGE ANTERIOR ABDOMINAL DRESSING THAT IS CDI. KAYLI DRAIN IN PLACE. SEROSANGUENOUS DRAINAGE PRESENT. SCDS DONNED.FERRELL CATHETER WITH CLEAR YELLOW URINE PRESENT IN ATRIUM. Addendum: 07/08/19 at 1449 by Chindeu Vargas RN, RN Amended: Links added.
[2019-07-08] MEDS ORDERED: HYDROmorphone 1 mg/ml syringe IV PRN (14:45)
[2019-07-08] MEDS ORDERED: ringers solution, lacted 1,000 ML IV SCH (15:06)
[2019-07-08] MEDS ORDERED: meperidine/PF 25mg/ml syringe IV PRN ×3 (15:10)
[2019-07-08] MEDS ORDERED: acetaminophen 1,000mg/100ml IV 100 ML IV PRN (15:10)
[2019-07-08] MEDS ORDERED: hydrALAZINE 20mg/ml inj. IV PRN (15:10)
[2019-07-08] MEDS ORDERED: proCHLORperazine 10 MG/2 ml inj IV PRN (15:10)
[2019-07-08] MEDS ORDERED: morphine 4 MG/ML inj SYRINge IV PRN (15:10)
[2019-07-08] MEDS ORDERED: morphine 2 MG/ML inj. syringe IV PRN (15:10)
[2019-07-08] MEDS ORDERED: ondansetron/PF 4mg/2ml inj IV PRN (15:10)
[2019-07-08] MEDS ORDERED: labetalol 20mg/4ml (5mg/ml) syringe IV PRN (15:10)
--- NOTE | 2019-07-08 15:18 | NUR ---
Patient in room PAS IN 900. I have received report from Chinedu PIMENTEL in recovery room and had the opportunity to ask questions and assume patient care.
--- NOTE | 2019-07-08 15:50 | NUR ---
Patient has met criteria for transfer to floor. Patient vss. Pain at a tolerable level. Transferred via bed to room where they were hooked to vitals and RN notified patient has arrived. Bed low, call light within reach, 2-3 rails up, vss, belongings placed in room. Care turned over to RN TAMANNA WHO WAS PRESENT AT TRANSFER. Addendum: 07/08/19 at 1601 by Chinedu Vargas RN, RN Amended: Links added.
[2019-07-08] MEDS: ceFOXitin 1 GM/D5W 50mL IVPB 50 ML IV SCH (16:00)
[2019-07-08] MEDS: potassium CL 20mEq in D5-1/2NS 1,000 ML IV SCH ×2 (16:05→22:39)
[2019-07-08] MEDS: HYDROcodone/acetaminophen 10/325mg tab PO PRN ×2 (17:47→22:34)
--- NOTE | 2019-07-08 18:15 | NUR ---
Problems reprioritized. Patient report given, questions answered & plan of care reviewed with Ad PIMENTEL.
[2019-07-08] MEDS: ondansetron/PF 4mg/2ml inj IV PRN (22:33)
[2019-07-09] VITALS: BP 122/84
[2019-07-09] MEDS: ceFOXitin 1 GM/D5W 50mL IVPB 50 ML IV SCH (01:13)
[2019-07-09 06:34] LABS: BASOPHILS % (AUTO) 0 % (0-1); EOSINOPHILS % (AUTO) 0 % (0-6); HEMATOCRIT 28.1 % (35.0-45.0); HEMOGLOBIN 9.5 g/dl (12.0-16.0); LYMPHOCYTES # (AUTO) 1.5 X10'3 (1.1-4.8); LYMPHOCYTES % (AUTO) 13.1 % (21-51); MEAN CORPUSCULAR HEMOGLOBIN 32.9 PG (27.0-31.0); MEAN CORPUSCULAR HGB CONC 33.9 g/dL (33.0-36.5); MONOCYTES % (AUTO) 8.3 % (2-12); NEUTROPHILS # (AUTO) 9.1 X10'3 (1.8-7.7); NEUTROPHILS % (AUTO) 78.6 % (42-75); PLATELET COUNT 152 X10'3 (140-440); RED CELL DISTRIBUTION WIDTH 14.4 % (11.5-14.5); WHITE BLOOD COUNT 11.6 X10'3 (4.5-11.0)
[2019-07-09] MEDS: potassium CL 20mEq in D5-1/2NS 1,000 ML IV SCH ×2 (06:39→15:54)
[2019-07-09 06:40] LABS: ALBUMIN 2.7 G/DL (3.4-5.0); ANION GAP 9 (8-16); BLOOD UREA NITROGEN 9 MG/DL (7-18); CALCIUM 7.8 MG/DL (8.5-10.1); CHLORIDE 104 MMOL/L (99-107); CREATININE 0.75 MG/DL (0.40-0.90); GLUCOSE 157 MG/DL (70-104); POTASSIUM 4.8 MMOL/L (3.5-5.1); SODIUM 134 MMOL/L (135-145); TOTAL CARBON DIOXIDE 21.2 MMOL/L (24-32); eGFR 80 ML/MIN
[2019-07-09 08:00] VITALS: BP 130/84
--- NOTE | 2019-07-09 09:40 | NUR ---
Dr. Reyes rounded for Dr. Davison. New orders received.
[2019-07-09] MEDS: HYDROcodone/acetaminophen 10/325mg tab PO PRN ×3 (10:02→23:34)
[2019-07-09] MEDS: ondansetron/PF 4mg/2ml inj IV PRN ×3 (10:03→23:34)
[2019-07-09 12:00] VITALS: BP 153/90
[2019-07-09 19:00] VITALS: BP 140/78
[2019-07-10] VITALS: BP 148/80
[2019-07-10] MEDS: potassium CL 20mEq in D5-1/2NS 1,000 ML IV SCH ×3 (02:16→22:03)
[2019-07-10 04:53] LABS: BASOPHILS % (AUTO) 0.1 % (0-1); EOSINOPHILS % (AUTO) 0.1 % (0-6); HEMATOCRIT 22.7 % (35.0-45.0); HEMOGLOBIN 7.8 g/dl (12.0-16.0); LYMPHOCYTES # (AUTO) 2.6 X10'3 (1.1-4.8); LYMPHOCYTES % (AUTO) 34.1 % (21-51); MEAN CORPUSCULAR HEMOGLOBIN 33.2 PG (27.0-31.0); MEAN CORPUSCULAR HGB CONC 34.4 g/dL (33.0-36.5); MEAN CORPUSCULAR VOLUME 96.5 FL (78-98); MEAN PLATELET VOLUME 7.8 FL (7.4-10.4); MONOCYTES # (AUTO) 0.6 X10'3 (0-0.9); MONOCYTES % (AUTO) 8.1 % (2-12); NEUTROPHILS # (AUTO) 4.5 X10'3 (1.8-7.7); NEUTROPHILS % (AUTO) 57.6 % (42-75); PLATELET COUNT 115 X10'3 (140-440); RED BLOOD COUNT 2.36 X10'6 (4.20-5.60); RED CELL DISTRIBUTION WIDTH 14.3 % (11.5-14.5); WHITE BLOOD COUNT 7.7 X10'3 (4.5-11.0)
[2019-07-10 04:58] LABS: ALBUMIN 2.7 G/DL (3.4-5.0); ANION GAP 7 (8-16); BLOOD UREA NITROGEN 4 MG/DL (7-18); BUN/CREATININE RATIO 6.6 (6.6-38.0); CHLORIDE 107 MMOL/L (99-107); CREATININE 0.61 MG/DL (0.40-0.90); GLUCOSE 105 MG/DL (70-104); POTASSIUM 4.1 MMOL/L (3.5-5.1); SODIUM 139 MMOL/L (135-145); eGFR > 90 ML/MIN
[2019-07-10 07:00] VITALS: BP 125/80
--- NOTE | 2019-07-10 07:02 | NUR ---
Patient in room BA 351. I have received report from Ad PIMENTEL and nursint student and had the opportunity to ask questions and assume patient care.
[2019-07-10] MEDS: HYDROcodone/acetaminophen 10/325mg tab PO PRN ×3 (08:28→19:58)
[2019-07-10] MEDS: ondansetron/PF 4mg/2ml inj IV PRN ×2 (08:28→22:08)
[2019-07-10 11:00] VITALS: BP 170/83
[2019-07-10 18:00] VITALS: BP 153/95
--- NOTE | 2019-07-10 18:34 | NUR ---
Problems reprioritized. Patient report given, questions answered & plan of care reviewed with Ad PIMENTEL.
[2019-07-10] MEDS: metoprolol succinate 25mg (24-HOUR) SR. Tablet PO SCH (22:03)
--- NOTE | 2019-07-10 22:50 | NUR ---
Patient notified RN that KAYLI drain was getting full. RN proceeded to drain 450ml of sanguineous fluid with KAYLI filling over ~[address] Reyes; responded that color wasn't concerning but to ensure CBC was checked. Will continue to monitor.
[2019-07-11] VITALS (13 sets, daily range): BP systolic 110–152; BP diastolic 68–97
--- NOTE | 2019-07-11 00:15 | NUR ---
CBC was ran and critical H/H of 6.3/18.[address] Reyes; received orders for type and screen and 2 units of blood. RN drained 125ml of sanguinous fluid since 2249. Will continue to monitor.
[2019-07-11 00:18] LABS: BASOPHILS % (AUTO) 0.2 % (0-1); EOSINOPHILS % (AUTO) 0.1 % (0-6); LYMPHOCYTES % (AUTO) 15.8 % (21-51); MEAN CORPUSCULAR HEMOGLOBIN 33.2 PG (27.0-31.0); MEAN CORPUSCULAR HGB CONC 34.1 g/dL (33.0-36.5); MEAN CORPUSCULAR VOLUME 97.4 FL (78-98); MEAN PLATELET VOLUME 7.4 FL (7.4-10.4); MONOCYTES # (AUTO) 0.9 X10'3 (0-0.9); MONOCYTES % (AUTO) 7.2 % (2-12); NEUTROPHILS # (AUTO) 9.7 X10'3 (1.8-7.7); NEUTROPHILS % (AUTO) 76.7 % (42-75); PLATELET COUNT 184 X10'3 (140-440); RED BLOOD COUNT 1.88 X10'6 (4.20-5.60); RED CELL DISTRIBUTION WIDTH 14.1 % (11.5-14.5); WHITE BLOOD COUNT 12.7 X10'3 (4.5-11.0)
[2019-07-11 00:20] LABS: ALBUMIN 2.6 G/DL (3.4-5.0); ANION GAP 6 (8-16); BLOOD UREA NITROGEN 3 MG/DL (7-18); BUN/CREATININE RATIO 4.3 (6.6-38.0); CHLORIDE 104 MMOL/L (99-107); CREATININE 0.69 MG/DL (0.40-0.90); GLUCOSE 164 MG/DL (70-104); POTASSIUM 4.1 MMOL/L (3.5-5.1); SODIUM 134 MMOL/L (135-145); TOTAL CARBON DIOXIDE 24.3 MMOL/L (24-32); eGFR 88 ML/MIN
[2019-07-11 00:24] LABS: HEMATOCRIT 18.3 % (35.0-45.0); HEMOGLOBIN 6.3 g/dl (12.0-16.0)
[2019-07-11] MEDS: ondansetron/PF 4mg/2ml inj IV PRN (07:55)
[2019-07-11] MEDS: HYDROcodone/acetaminophen 10/325mg tab PO PRN ×3 (07:56→21:16)
[2019-07-11 10:57] LABS: HEMATOCRIT 23.5 % (35.0-45.0); HEMOGLOBIN 8.1 g/dl (12.0-16.0); MEAN CORPUSCULAR HEMOGLOBIN 32.4 PG (27.0-31.0); MEAN CORPUSCULAR HGB CONC 34.5 g/dL (33.0-36.5); MEAN PLATELET VOLUME 7.1 FL (7.4-10.4); PLATELET COUNT 165 X10'3 (140-440); RED CELL DISTRIBUTION WIDTH 15.6 % (11.5-14.5); WHITE BLOOD COUNT 11.1 X10'3 (4.5-11.0)
[2019-07-11] MEDS: potassium CL 20mEq in D5-1/2NS 1,000 ML IV SCH (16:34)
[2019-07-11 17:07] LABS: HEMATOCRIT 23.7 % (35.0-45.0); HEMOGLOBIN 8.1 g/dl (12.0-16.0); MEAN CORPUSCULAR HEMOGLOBIN 32.3 PG (27.0-31.0); MEAN CORPUSCULAR HGB CONC 34.1 g/dL (33.0-36.5); MEAN CORPUSCULAR VOLUME 94.7 FL (78-98); MEAN PLATELET VOLUME 7.2 FL (7.4-10.4); PLATELET COUNT 158 X10'3 (140-440); RED CELL DISTRIBUTION WIDTH 15.4 % (11.5-14.5); WHITE BLOOD COUNT 10.7 X10'3 (4.5-11.0)
--- NOTE | 2019-07-11 18:07 | NUR ---
Problems reprioritized. Patient report given, questions answered & plan of care reviewed with MARGARITO Quinn.
[2019-07-11] MEDS: metoprolol succinate 25mg (24-HOUR) SR. Tablet PO SCH (20:08)
[2019-07-12] VITALS: BP 122/71
[2019-07-12] MEDS: potassium CL 20mEq in D5-1/2NS 1,000 ML IV SCH ×4 (00:40→18:38)
[2019-07-12] MEDS: HYDROcodone/acetaminophen 10/325mg tab PO PRN ×3 (01:23→18:38)
[2019-07-12 05:43] LABS: HEMATOCRIT 22.2 % (35.0-45.0); HEMOGLOBIN 7.6 g/dl (12.0-16.0); MEAN CORPUSCULAR HEMOGLOBIN 32.5 PG (27.0-31.0); MEAN CORPUSCULAR HGB CONC 34.2 g/dL (33.0-36.5); MEAN CORPUSCULAR VOLUME 94.9 FL (78-98); MEAN PLATELET VOLUME 7.2 FL (7.4-10.4); PLATELET COUNT 163 X10'3 (140-440); RED BLOOD COUNT 2.34 X10'6 (4.20-5.60); RED CELL DISTRIBUTION WIDTH 15.9 % (11.5-14.5); WHITE BLOOD COUNT 9.1 X10'3 (4.5-11.0)
[2019-07-12 05:51] LABS: ALBUMIN 2.4 G/DL (3.4-5.0); ANION GAP 6 (8-16); BLOOD UREA NITROGEN 1 MG/DL (7-18); BUN/CREATININE RATIO 1.7 (6.6-38.0); CALCIUM 7.9 MG/DL (8.5-10.1); CHLORIDE 106 MMOL/L (99-107); CREATININE 0.58 MG/DL (0.40-0.90); GLUCOSE 95 MG/DL (70-104); POTASSIUM 4.1 MMOL/L (3.5-5.1); SODIUM 137 MMOL/L (135-145); TOTAL CARBON DIOXIDE 25.3 MMOL/L (24-32); eGFR > 90 ML/MIN
--- NOTE | 2019-07-12 06:35 | NUR ---
Patient in room BA 351. I have received report from MARGARITO CARDOZO and had the opportunity to ask questions and assume patient care.
--- NOTE | 2019-07-12 06:50 | NUR ---
Problems reprioritized. Patient report given, questions answered & plan of care reviewed with NEY. Addendum: 07/12/19 at 0650 by Timbo Cortes RN Amended: Links added.
[2019-07-12 08:00] VITALS: BP 134/80
[2019-07-12 11:24] LABS: HEMOGLOBIN 8.2 g/dl (12.0-16.0); MEAN CORPUSCULAR HEMOGLOBIN 32.6 PG (27.0-31.0); MEAN CORPUSCULAR HGB CONC 34.2 g/dL (33.0-36.5); MEAN CORPUSCULAR VOLUME 95.3 FL (78-98); MEAN PLATELET VOLUME 7.3 FL (7.4-10.4); PLATELET COUNT 195 X10'3 (140-440); RED BLOOD COUNT 2.52 X10'6 (4.20-5.60); RED CELL DISTRIBUTION WIDTH 15.5 % (11.5-14.5); WHITE BLOOD COUNT 10.4 X10'3 (4.5-11.0)
[2019-07-12 12:53] VITALS: BP 136/78
--- NOTE | 2019-07-12 18:42 | NUR ---
Problems reprioritized. Patient report given, questions answered & plan of care reviewed with MARGARITO Vale.
[2019-07-12 20:00] VITALS: BP 160/77
[2019-07-12] MEDS: metoprolol succinate 25mg (24-HOUR) SR. Tablet PO SCH (21:11)
[2019-07-13] VITALS: BP 146/79
[2019-07-13] MEDS: HYDROcodone/acetaminophen 10/325mg tab PO PRN ×4 (01:49→21:50)
[2019-07-13] MEDS: potassium CL 20mEq in D5-1/2NS 1,000 ML IV SCH ×2 (03:47→19:03)
[2019-07-13 04:54] LABS: BASOPHILS % (AUTO) 0.3 % (0-1); EOSINOPHILS # (AUTO) 0.2 X10'3 (0-0.9); EOSINOPHILS % (AUTO) 1.9 % (0-6); HEMOGLOBIN 7.9 g/dl (12.0-16.0); LYMPHOCYTES # (AUTO) 2.5 X10'3 (1.1-4.8); LYMPHOCYTES % (AUTO) 28.8 % (21-51); MEAN CORPUSCULAR HGB CONC 34.3 g/dL (33.0-36.5); MEAN CORPUSCULAR VOLUME 96.2 FL (78-98); MEAN PLATELET VOLUME 7.2 FL (7.4-10.4); MONOCYTES # (AUTO) 0.9 X10'3 (0-0.9); MONOCYTES % (AUTO) 10.3 % (2-12); NEUTROPHILS # (AUTO) 5.2 X10'3 (1.8-7.7); NEUTROPHILS % (AUTO) 58.7 % (42-75); PLATELET COUNT 177 X10'3 (140-440); RED CELL DISTRIBUTION WIDTH 15.9 % (11.5-14.5); WHITE BLOOD COUNT 8.8 X10'3 (4.5-11.0)
[2019-07-13 05:08] LABS: ALBUMIN 2.4 G/DL (3.4-5.0); ANION GAP 5 (8-16); BLOOD UREA NITROGEN 1 MG/DL (7-18); BUN/CREATININE RATIO 1.8 (6.6-38.0); CALCIUM 7.9 MG/DL (8.5-10.1); CHLORIDE 105 MMOL/L (99-107); CREATININE 0.56 MG/DL (0.40-0.90); GLUCOSE 105 MG/DL (70-104); POTASSIUM 3.7 MMOL/L (3.5-5.1); SODIUM 137 MMOL/L (135-145); TOTAL CARBON DIOXIDE 27.4 MMOL/L (24-32); eGFR > 90 ML/MIN
--- NOTE | 2019-07-13 06:11 | NUR ---
Problems reprioritized. Patient report given, questions answered & plan of care reviewed with MARGARITO Russell.
--- NOTE | 2019-07-13 06:31 | NUR ---
Patient in room BA 351. I have received report from MARGARITO RODRÍGUEZ and had the opportunity to ask questions and assume patient care.
[2019-07-13 07:00] VITALS: BP 144/76
[2019-07-13 12:00] VITALS: BP 138/57
--- NOTE | 2019-07-13 15:21 | NUR ---
Initial: Pt s/p colostomy reversal, lysis of adhesions, and left salpingo-oophorectomy. Pt seen at bedside provided with written and verbal colostomy reversal nutrition therapy education and RD contact information. Pt endorses a good appetite and states she ate cream of wheat and Occitan toast and didn't eat eggs at breakfast despite documentation of 75% PO intake of protein at breakfast. Pt denies GI discomfort with PO intake, denies food allergies, or difficulty chewing/swallowing. LBM 07/10 however pt reports since eating breakfast she has been passing gas and had a BM today. No nutrition intervention implemented at this time. Will continue to follow. Recommendations: 1) Consider diet change to low fiber given recent surgery 2) Monitor need for ONS 3) Bowel care PRN 4) Scaled wt per rx Addendum: 07/13/19 at [address] Amended: Links added.
--- NOTE | 2019-07-13 18:08 | NUR ---
Problems reprioritized. Patient report given, questions answered & plan of care reviewed with MARGARITO Vale.
--- NOTE | 2019-07-13 18:35 | NUR ---
Patient in room BA 351. I have received report from MARGARITO Russell and had the opportunity to ask questions and assume patient care.
--- NOTE | 2019-07-13 19:03 | NUR ---
Patient refusing IV fluids. States MD took off fluids.
[2019-07-13 20:00] VITALS: BP 169/86
[2019-07-13] MEDS: metoprolol succinate 25mg (24-HOUR) SR. Tablet PO SCH (21:48)
--- NOTE | 2019-07-13 22:00 | NUR ---
Dressing changed to abd incision.
[2019-07-14] VITALS: BP 110/60
[2019-07-14] MEDS: potassium CL 20mEq in D5-1/2NS 1,000 ML IV SCH ×2 (05:42→15:42)
[2019-07-14] MEDS: HYDROcodone/acetaminophen 10/325mg tab PO PRN ×3 (06:42→20:52)
--- NOTE | 2019-07-14 06:42 | NUR ---
Problems reprioritized. Patient report given, questions answered & plan of care reviewed with MARGARITO Moya.
--- NOTE | 2019-07-14 06:47 | NUR ---
Patient in room BA 351. I have received report from JEN. Angel RN and had the opportunity to ask questions and assume patient care.
[2019-07-14 07:00] VITALS: BP 121/74
[2019-07-14 11:00] VITALS: BP 152/65
--- NOTE | 2019-07-14 19:00 | NUR ---
Problems reprioritized. Patient report given, questions answered & plan of care reviewed with MARGARITO NARVAEZ.
[2019-07-14 20:00] VITALS: BP 121/73
[2019-07-14 20:35] LABS: BASOPHILS % (AUTO) 0.2 % (0-1); EOSINOPHILS # (AUTO) 0.2 X10'3 (0-0.9); EOSINOPHILS % (AUTO) 1.5 % (0-6); HEMATOCRIT 25.7 % (35.0-45.0); HEMOGLOBIN 8.7 g/dl (12.0-16.0); LYMPHOCYTES # (AUTO) 2.9 X10'3 (1.1-4.8); LYMPHOCYTES % (AUTO) 21.9 % (21-51); MEAN CORPUSCULAR HEMOGLOBIN 32.4 PG (27.0-31.0); MEAN CORPUSCULAR HGB CONC 33.9 g/dL (33.0-36.5); MEAN CORPUSCULAR VOLUME 95.6 FL (78-98); MEAN PLATELET VOLUME 7.4 FL (7.4-10.4); MONOCYTES # (AUTO) 1.6 X10'3 (0-0.9); NEUTROPHILS # (AUTO) 8.6 X10'3 (1.8-7.7); NEUTROPHILS % (AUTO) 64.4 % (42-75); PLATELET COUNT 240 X10'3 (140-440); RED BLOOD COUNT 2.69 X10'6 (4.20-5.60); RED CELL DISTRIBUTION WIDTH 16.1 % (11.5-14.5); WHITE BLOOD COUNT 13.4 X10'3 (4.5-11.0)
[2019-07-14] MEDS: metoprolol succinate 25mg (24-HOUR) SR. Tablet PO SCH (20:52)
--- NOTE | 2019-07-14 21:24 | NUR ---
Patient in room BA 351. I have received report from MARGARITO Moya and had the opportunity to ask questions and assume patient care. Addendum: 07/14/19 at 2125 by Ely Noyola RN Amended: Links added.
[2019-07-15 00:10] VITALS: BP 113/57
[2019-07-15] MEDS: HYDROcodone/acetaminophen 10/325mg tab PO PRN ×3 (05:17→16:34)
[2019-07-15 06:12] LABS: BASOPHILS % (AUTO) 0.3 % (0-1); EOSINOPHILS # (AUTO) 0.1 X10'3 (0-0.9); EOSINOPHILS % (AUTO) 1.1 % (0-6); HEMATOCRIT 24.3 % (35.0-45.0); HEMOGLOBIN 8.2 g/dl (12.0-16.0); LYMPHOCYTES # (AUTO) 2.4 X10'3 (1.1-4.8); LYMPHOCYTES % (AUTO) 19.9 % (21-51); MEAN CORPUSCULAR HGB CONC 33.8 g/dL (33.0-36.5); MEAN CORPUSCULAR VOLUME 94.5 FL (78-98); MEAN PLATELET VOLUME 7.4 FL (7.4-10.4); MONOCYTES # (AUTO) 1.3 X10'3 (0-0.9); NEUTROPHILS # (AUTO) 8.1 X10'3 (1.8-7.7); NEUTROPHILS % (AUTO) 67.7 % (42-75); PLATELET COUNT 252 X10'3 (140-440); RED BLOOD COUNT 2.57 X10'6 (4.20-5.60); RED CELL DISTRIBUTION WIDTH 16.1 % (11.5-14.5)
--- NOTE | 2019-07-15 06:12 | NUR ---
Problems reprioritized. Patient report given, questions answered & plan of care reviewed with MARGARITO Russell. Addendum: 07/15/19 at 0612 by Ely Noyola RN Amended: Links added.
--- NOTE | 2019-07-15 06:37 | NUR ---
Patient in room BA 351. I have received report from MARGARITO STANLEY and had the opportunity to ask questions and assume patient care.
[2019-07-15 08:52] VITALS: BP 116/58
[2019-07-15] MEDS ORDERED: HYDR-4353 PO (10:36)
--- NOTE | 2019-07-15 12:50 | NUR ---
Patient alert and oriented with no complaints. Discussed with patient discharge instructions. Patient verbalized understanding of teaching. [place] triplicate given to patient. Patient wanting to eat her lunch and awaiting for her daughter for transportation home.
[2019-07-15 12:55] VITALS: BP 95/56
--- NOTE | 2019-07-15 15:58 | NUR ---
During dressing change it was noted that patient's left abd surgical wound dehisced. Patient's midline abd surgical site still CDI, well approximated and digna intact. Dr. Davison notified of patient's dehiscence. There were 5 digna total at patient's dehisced left abd surgical site with 3 dangling off, [address] Davison stated, "there is nothing I can do now. Pack wound with 1/2 inch packing and send her home with home health and I will see her at my office on Friday." Wound packed with 1/2 packing, covered with gauze and reinforced with foam tape. Patient aware Dr. Davison was notified and of Dr. Espinal orders. Patient educated on wound care and extra wound care supplies given to patient. Patient tolerated DC of KAYLI drain to right abd, dressed with optifoam. Patient is waiting for transport home. Addendum: 07/15/19 at 1628 by Drew Harris RN Patient verbalized understanding of wound care and stated, " I had to do this for my at home too."
--- NOTE | 2019-07-15 17:08 | NUR ---
Patient alert and oriented with no complaints. Patient dc'd with all personal belongings and including wound care supplies. Patient escorted out in wheelchair to car where daughter who was transport awaiting.
== END 2019-07-15 16:49 | disposition home health service (06) | DRG 231 ==
LOC: PAS IN 08:01 → EDSTATUS 10:15 → SUR 3N 16:45
PROVIDERS: ADMIT Surgery; ATTEND Surgery
PROC: 0UT60ZZ Resection of Left Fallopian Tube, Open Approach (ICD-10-PCS; 2019-07-08)
PROC: 0UT10ZZ Resection of Left Ovary, Open Approach (ICD-10-PCS; 2019-07-08)
PROC: 0DBL0ZZ Excision of Transverse Colon, Open Approach (ICD-10-PCS; 2019-07-08)
PROC: 0DNW0ZZ Release Peritoneum, Open Approach (ICD-10-PCS; 2019-07-08)
PROC: 3E0T3BZ Introduction of Anesthetic Agent into Peripheral Nerves and Plexi, Percutaneous Approach (ICD-10-PCS; 2019-07-08)
PROC: 0DBN0ZZ Excision of Sigmoid Colon, Open Approach (ICD-10-PCS; principal; 2019-07-08 11:24)
PROC: 30233N1 Transfusion of Nonautologous Red Blood Cells into Peripheral Vein, Percutaneous Approach (ICD-10-PCS; 2019-07-11)
DX: Z43.3 Encounter for attention to colostomy (principal); E66.9 Obesity, unspecified; K66.0 Peritoneal adhesions (postprocedural) (postinfection); R14.0 Abdominal distension (gaseous); Z68.27 Body mass index [BMI] 27.0-27.9, adult
CPT/HCPCS: 36415; 36430; 80048; 80053; 81001; 82948; 85025; 85027; 85610; 85730; 86885; 86900; 86901; 86920; 87081; 87635; A4618; A6253; A6407; A6449; A7000; C1758; C9290; G0378; J0131; J0694; J1100; J1580; J2001; J2250; J2270; J2405; J2704; J2710; J3010; J3480; J3490; J7120; P9016

== ENCOUNTER 2019-12-17 08:08 | Inpatient (IN) | payer MEDICAID ==
[2019-12-09 15:30] LABS: BASOPHILS # (AUTO) 0.1 X10'3 (0-0.2); BASOPHILS % (AUTO) 0.7 % (0-1); EOSINOPHILS # (AUTO) 0.2 X10'3 (0-0.9); EOSINOPHILS % (AUTO) 1.5 % (0-6); LYMPHOCYTES # (AUTO) 2.6 X10'3 (1.1-4.8); LYMPHOCYTES % (AUTO) 20.1 % (21-51); MEAN CORPUSCULAR HEMOGLOBIN 33.8 PG (27.0-31.0); MEAN CORPUSCULAR HGB CONC 34.2 g/dL (33.0-36.5); MEAN CORPUSCULAR VOLUME 98.7 FL (78-98); MEAN PLATELET VOLUME 7.8 FL (7.4-10.4); MONOCYTES # (AUTO) 0.5 X10'3 (0-0.9); MONOCYTES % (AUTO) 3.7 % (2-12); NEUTROPHILS # (AUTO) 9.7 X10'3 (1.8-7.7); PRE OP HEMATOCRIT 40.2 % (35.0-45.0); PRE OP HEMOGLOBIN 13.8 g/dL (12.0-16.0); PRE OP PLATELET COUNT 176 X10'3 (140-440); RED BLOOD COUNT 4.07 X10'6 (4.20-5.60); RED CELL DISTRIBUTION WIDTH 15.1 % (11.5-14.5)
[2019-12-09 15:37] LABS: PRE OP INR 1.2 INR; PRE OP PROTIME 11.8 SECONDS (9.0-12.0)
[2019-12-09 15:41] LABS: ALBUMIN 3.4 G/DL (3.4-5.0); ALBUMIN/GLOBULIN RATIO 0.5 (1.1-1.5); ALKALINE PHOSPHATASE 540 IU/L (46-116); BLOOD UREA NITROGEN 4 MG/DL (7-18); BUN/CREATININE RATIO 8.2 (6.6-38.0); CALCIUM 9.3 MG/DL (8.5-10.1); CHLORIDE 99 MMOL/L (99-107); CREATININE 0.49 MG/DL (0.40-0.90); PRE OP ALT 67 U/L (30-65); PRE OP ANION GAP 10 (8-16); PRE OP BILIRUB, TOTAL 0.8 MG/DL (0.0-1.0); PRE OP GLUCOSE 86 MG/DL (70-104); PRE OP POTASSIUM 3.6 MMOL/L (3.4-5.1); PRE OP SODIUM 135 MMOL/L (135-145); TOTAL CARBON DIOXIDE 25.9 MMOL/L (24-32); eGFR > 90 ML/MIN
[2019-12-09 15:43] LABS: CLARITY,URINE CLEAR (Clear); COLOR,URINE YELLOW (Yellow); GLUCOSE, URINE NEGATIVE (Neg); KETONES,URINE NEGATIVE (Neg); LEUKOCYTE ESTERASE ,URINE NEGATIVE (Neg); NITRITES, URINE NEGATIVE (Neg); OCCULT BLOOD,URINE MODERATE (Neg); PROTEIN,URINE NEGATIVE (Neg); UROBILINOGEN,URINE 0.2 E.U/dL (0.2-1.0)
[2019-12-09 15:44] LABS: PRE OP AST 137 U/L (10-37)
[2019-12-09 15:53] LABS: UA COLLECTION TYPE CLN CATCH MIDSTREAM
[2019-12-09 15:55] LABS: BACTERIA,URINE NONE SEEN /HPF (Neg); MUCUS STRANDS NONE SEEN /LPF (Neg); RBC,URINE 0-2 /HPF (0-2); SQUAMOUS EPITHELIAL CELL,UR FEW /LPF (FEW); WBC,URINE NONE SEEN /HPF (0-4)
[2019-12-17] VITALS (18 sets, daily range): BP systolic 102–147; BP diastolic 66–86
[~2019-12-17] VITALS: Ht 172.7 cm; Wt 83.8 kg
[~2019-12-17 08:08] MED LIST changes: +BUPIVAcaine/PF 2.5 mg/ml (0.25%) 30ml vial ONE; +ceFOXitin 2GM-NS 100mL ADDvant 100 ML IV ONE; -ceFOXitin sod/dextrose 2g/50ml 50 ML IV ONE
[2019-12-17] MEDS ORDERED: BUPIVAcaine/PF 2.5mg/ml (0.25%) 10ml vial ONE (08:53)
[2019-12-17] MEDS ORDERED: BUPIVACAINE liposomal/PF 13.3 MG/ML vial IM ONE (08:54)
[2019-12-17 09:32] LABS: BASOPHILS # (AUTO) 0.1 X10'3 (0-0.2); BASOPHILS % (AUTO) 0.4 % (0-1); EOSINOPHILS # (AUTO) 0.3 X10'3 (0-0.9); EOSINOPHILS % (AUTO) 2.1 % (0-6); HEMATOCRIT 41.2 % (35.0-45.0); HEMOGLOBIN 13.9 g/dl (12.0-16.0); LYMPHOCYTES % (AUTO) 15.6 % (21-51); MEAN CORPUSCULAR HEMOGLOBIN 33.3 PG (27.0-31.0); MEAN CORPUSCULAR HGB CONC 33.8 g/dL (33.0-36.5); MEAN CORPUSCULAR VOLUME 98.6 FL (78-98); MEAN PLATELET VOLUME 8.1 FL (7.4-10.4); MONOCYTES # (AUTO) 0.7 X10'3 (0-0.9); MONOCYTES % (AUTO) 5.7 % (2-12); NEUTROPHILS # (AUTO) 9.9 X10'3 (1.8-7.7); NEUTROPHILS % (AUTO) 76.2 % (42-75); PLATELET COUNT 193 X10'3 (140-440); RED BLOOD COUNT 4.18 X10'6 (4.20-5.60); RED CELL DISTRIBUTION WIDTH 14.9 % (11.5-14.5)
[2019-12-17] MEDS ORDERED: midazolam 2 mg/2 ml injection ONE (12:43)
[2019-12-17] MEDS ORDERED: propofol inj 20 ML IV ONE (12:43)
[2019-12-17] MEDS ORDERED: fentaNYL /PF 50mcg/ml 5ml ampule ONE (12:43)
[2019-12-17] MEDS ORDERED: rocuronium 10mg/ml inj IV ONE (12:43)
[2019-12-17] MEDS ORDERED: meperidine/PF 25mg/ml syringe IV PRN ×2 (13:35)
[2019-12-17] MEDS ORDERED: morphine 4 MG/ML inj SYRINge IV PRN (13:35)
[2019-12-17] MEDS ORDERED: morphine 2 MG/ML inj. syringe IV PRN (13:35)
[2019-12-17] MEDS ORDERED: ondansetron/PF 4mg/2ml inj IV PRN ×2 (13:35→17:10)
[2019-12-17] MEDS ORDERED: ringers solution, lacted 1,000 ML IV SCH (13:35)
[2019-12-17] MEDS ORDERED: proCHLORperazine 10 MG/2 ml inj IV PRN (13:35)
[2019-12-17] MEDS ORDERED: ceFAZolin 1000mg inj ONE ×2 (15:16→15:38)
[2019-12-17] MEDS ORDERED: meperidine/PF 25mg/ml syringe ONE (15:44)
[2019-12-17] MEDS ORDERED: acetaminophen 1,000mg/100ml IV 100 ML IV ONE (16:14)
--- NOTE | 2019-12-17 16:32 | NUR ---
RECEIVED FROM OR VIA BED ACCOMPANIED BY ANESTHESIOLOGIST DR INGRAM, REPORT GIVEN. PT DROWSY BUT AROUSES WITH NO COMPLAINT OF PAIN AT THIS TIME. 20 GAUGE PIV L FA/AC PATENT AND RUNNING LR AT 100 ML/HR. LG BANDAID X3 CDI, [place] DRESSING CDI, ABD BINDER CDI. ABD SOFT, SKIN PINK AND WARM, BRISK CAP REFILL, PERIPHERAL PULSES PALPABLE, RODRIGUEZ,VSS, SCDS APPLIED, F/C DRAINING CLEAR YELLOW FLUID, RESTING COMFORTABLY.
[2019-12-17] MEDS: meperidine/PF 25mg/ml syringe IV PRN ×3 (16:56→17:26)
[2019-12-17] MEDS ORDERED: HYDROmorphone 1 mg/ml syringe IV PRN (17:10)
--- NOTE | 2019-12-17 17:52 | NUR ---
TRANSPORTED VIA BED ACCOMPANIED BY MYSELF, REPORT GIVEN. PT AWAKE AND ALERT WITH COMPLAINT OF PAIN LEVEL OF 4-5 AT THIS TIME. 20 GAUGE PIV L FA/AC PATENT AND RUNNING LR AT 100 ML/HR. LG BANDAID X3 CDI, [place] DRESSING CDI, ABD BINDER CDI, KAYLI DRAIN TO SUCTION. ABD SOFT, SKIN PINK AND WARM, BRISK CAP REFILL, PERIPHERAL PULSES PALPABLE, RODRIGUEZ,VSS, SCDS APPLIED, F/C DRAINING CLEAR YELLOW FLUID, RESTING COMFORTABLY. LEFT IN CARE OF BARBARA PIMENTEL.
--- NOTE | 2019-12-17 17:55 | NUR ---
Recieved pt from recovery via bed. Bed low call light in reach vss. Pt sleepy, but wakes easily.
--- NOTE | 2019-12-17 18:00 | NUR ---
Problems reprioritized. Patient report given, questions answered & plan of care reviewed with Akanksha Morgan RN.
--- NOTE | 2019-12-17 18:17 | NUR ---
Patient in room . I have received report from MARGARITO Cardoso and had the opportunity to ask questions and assume patient care.
[2019-12-17] MEDS: potassium CL 20mEq in D5-1/2NS 1,000 ML IV SCH (22:56)
[2019-12-18] MEDS ORDERED: ceFOXitin 1 GM/D5W 50mL IVPB 1,000 GM in normal saline 100ml IV soln 100 ML IV SCH ×2
[2019-12-18 00:21] VITALS: BP 141/88
[2019-12-18] MEDS: ceFOXitin inj 1,000 MG in normal saline 100ml IV soln 100 ML IV SCH ×2 (00:26→08:28)
[2019-12-18] MEDS: potassium CL 20mEq in D5-1/2NS 1,000 ML IV SCH ×3 (01:10→16:47)
[2019-12-18] MEDS: HYDROcodone/acetaminophen 10/325mg tab PO PRN ×3 (03:28→17:48)
[2019-12-18 04:00] VITALS: BP 166/79
--- NOTE | 2019-12-18 05:32 | NUR ---
F/C D/C'd AT 0530, Pt TOLERATED WELL
[2019-12-18 05:58] LABS: ALBUMIN 2.9 G/DL (3.4-5.0); ANION GAP 11 (8-16); BLOOD UREA NITROGEN 6 MG/DL (7-18); BUN/CREATININE RATIO 11.5 (6.6-38.0); CALCIUM 8.5 MG/DL (8.5-10.1); CHLORIDE 97 MMOL/L (99-107); CREATININE 0.52 MG/DL (0.40-0.90); GLUCOSE 153 MG/DL (70-104); POTASSIUM 4.1 MMOL/L (3.5-5.1); SODIUM 130 MMOL/L (135-145); TOTAL CARBON DIOXIDE 22.4 MMOL/L (24-32); eGFR > 90 ML/MIN
[2019-12-18 06:00] LABS: BASOPHILS % (AUTO) 0.1 % (0-1); EOSINOPHILS % (AUTO) 0 % (0-6); HEMATOCRIT 36.5 % (35.0-45.0); HEMOGLOBIN 12.2 g/dl (12.0-16.0); LYMPHOCYTES # (AUTO) 1.4 X10'3 (1.1-4.8); LYMPHOCYTES % (AUTO) 8.8 % (21-51); MEAN CORPUSCULAR HEMOGLOBIN 33.3 PG (27.0-31.0); MEAN CORPUSCULAR HGB CONC 33.5 g/dL (33.0-36.5); MEAN CORPUSCULAR VOLUME 99.3 FL (78-98); MEAN PLATELET VOLUME 7.9 FL (7.4-10.4); MONOCYTES # (AUTO) 0.8 X10'3 (0-0.9); MONOCYTES % (AUTO) 5.1 % (2-12); NEUTROPHILS # (AUTO) 13.4 X10'3 (1.8-7.7); PLATELET COUNT 194 X10'3 (140-440); RED BLOOD COUNT 3.67 X10'6 (4.20-5.60); RED CELL DISTRIBUTION WIDTH 14.9 % (11.5-14.5); WHITE BLOOD COUNT 15.6 X10'3 (4.5-11.0)
--- NOTE | 2019-12-18 06:30 | NUR ---
Problems reprioritized. Patient report given, questions answered & plan of care reviewed with RN. Ashanti.
[2019-12-18 07:49] VITALS: BP 137/75
[2019-12-18 12:00] VITALS: BP 125/83
--- NOTE | 2019-12-18 16:45 | NUR ---
Dr Quezada aware patient KAYLI has put out approx 410ml Serosanguinous drainage. Also, received orders for Full liquid diet.
--- NOTE | 2019-12-18 17:42 | NUR ---
Dressings to abdomen changed. patient tolerated procedure. norco effective for pain. total for KAYLI drain 510 sang with small amount of serrous content .. DR weinstein aware of output.
[2019-12-18 18:30] VITALS: BP 142/75
--- NOTE | 2019-12-18 18:30 | NUR ---
Patient in room BA 357. I have received report from MARGARITO Burrell and had the opportunity to ask questions and assume patient care with student Sasha. Addendum: 12/19/19 at 0040 by Ming Plascencia RN Amended: Links added.
--- NOTE | 2019-12-18 18:30 | NUR ---
Problems reprioritized. Patient report given, questions answered & plan of care reviewed with sebastian PIMENTEL.
--- NOTE | 2019-12-18 20:00 | NUR ---
IV in left FA infiltrated IV DC cannula intact. Addendum: 12/19/19 at 0307 by Sasha SMAUEL Amended: Links added.
[2019-12-18] MEDS: lisinopril 20mg tablet PO SCH (20:45)
[2019-12-18] MEDS: calcium carbonate/vitamin D3 tablet PO SCH (20:46)
[2019-12-18] MEDS: amLODIPine 5mg tablet PO SCH (20:46)
[2019-12-18] MEDS: metoprolol succinate 25mg (24-HOUR) SR. Tablet PO SCH (20:47)
--- NOTE | 2019-12-18 20:47 | NUR ---
Student Medication Administration: For this medication-pass time frame, all medication were reviewed, dispensed, administered and documented per hospital policy by Linette PLASCENCIA RN. Addendum: 12/19/19 at 0030 by Ming Plascencia RN Amended: Links added.
[2019-12-19 00:31] VITALS: BP 125/76
[2019-12-19] MEDS: HYDROcodone/acetaminophen 10/325mg tab PO PRN ×4 (00:41→20:46)
[2019-12-19] MEDS: potassium CL 20mEq in D5-1/2NS 1,000 ML IV SCH (01:00)
--- NOTE | 2019-12-19 04:35 | NUR ---
Student Medication Administration: For this medication-pass time frame, all medication were reviewed, dispensed, administered and documented per hospital policy by HYUN Student documentation: I have reviewed and agree with all interventions, assessments performed and documented by HYUN. Addendum: 12/19/19 at 0435 by Ming Plascencia RN Amended: Links added.
[2019-12-19 06:00] LABS: BASOPHILS # (AUTO) 0.1 X10'3 (0-0.2); BASOPHILS % (AUTO) 0.4 % (0-1); EOSINOPHILS # (AUTO) 0.2 X10'3 (0-0.9); EOSINOPHILS % (AUTO) 1.4 % (0-6); HEMATOCRIT 27.3 % (35.0-45.0); HEMOGLOBIN 8.9 g/dl (12.0-16.0); LYMPHOCYTES # (AUTO) 3.5 X10'3 (1.1-4.8); MEAN CORPUSCULAR HEMOGLOBIN 32.8 PG (27.0-31.0); MEAN CORPUSCULAR HGB CONC 32.8 g/dL (33.0-36.5); MEAN CORPUSCULAR VOLUME 100.1 FL (78-98); MEAN PLATELET VOLUME 7.9 FL (7.4-10.4); MONOCYTES # (AUTO) 0.9 X10'3 (0-0.9); MONOCYTES % (AUTO) 5.7 % (2-12); NEUTROPHILS # (AUTO) 11.1 X10'3 (1.8-7.7); NEUTROPHILS % (AUTO) 70.5 % (42-75); PLATELET COUNT 238 X10'3 (140-440); RED BLOOD COUNT 2.73 X10'6 (4.20-5.60); RED CELL DISTRIBUTION WIDTH 14.7 % (11.5-14.5); WHITE BLOOD COUNT 15.8 X10'3 (4.5-11.0)
[2019-12-19 06:07] LABS: ALBUMIN 2.6 G/DL (3.4-5.0); ANION GAP 9 (8-16); BLOOD UREA NITROGEN 7 MG/DL (7-18); BUN/CREATININE RATIO 12.1 (6.6-38.0); CALCIUM 8.2 MG/DL (8.5-10.1); CHLORIDE 98 MMOL/L (99-107); CREATININE 0.58 MG/DL (0.40-0.90); GLUCOSE 90 MG/DL (70-104); POTASSIUM 4.2 MMOL/L (3.5-5.1); SODIUM 129 MMOL/L (135-145); TOTAL CARBON DIOXIDE 21.7 MMOL/L (24-32); eGFR > 90 ML/MIN
--- NOTE | 2019-12-19 06:50 | NUR ---
Patient in room BA 357. I have received report from Bailey PIMENTEL and had the opportunity to ask questions and assume patient care.
--- NOTE | 2019-12-19 06:50 | NUR ---
Problems reprioritized. Patient report given, questions answered & plan of care reviewed with MARGARITO Colin. Addendum: 12/19/19 at 0651 by Ming Plascencia RN Amended: Links added.
[2019-12-19] MEDS: calcium carbonate/vitamin D3 tablet PO SCH ×2 (07:45→20:47)
--- NOTE | 2019-12-19 10:55 | NUR ---
Dr Quezada was aware that patients abdominal wound lab results from cultures came back positive for MRSA. After researching orders and speaking to lab it appears that the order was placed by Dr Davison and that he took the cultures in surgery. This would have to be confirmed with Dr Davison. However, Per Dr Quezada we will keep the patient today until Dr Davison is here tomorrow and we will start patient on Vancomycin with pharmacy to dose and Received orders for dressing changed to old colostomy take down site do do wet to dry BID. Primary RN Dixie aware.
[2019-12-19 11:00] VITALS: BP 104/57
[2019-12-19] MEDS: vancomycin/NS 1 GM ADD-VANTAGE 250 ML IV SCH ×2 (12:36→23:20)
[2019-12-19 12:56] VITALS: BP 112/63
[2019-12-19 13:26] LABS: HEMATOCRIT 26.9 % (35.0-45.0); HEMOGLOBIN 8.9 g/dl (12.0-16.0); MEAN CORPUSCULAR HEMOGLOBIN 33.2 PG (27.0-31.0); MEAN CORPUSCULAR HGB CONC 33.2 g/dL (33.0-36.5); MEAN CORPUSCULAR VOLUME 99.8 FL (78-98); MEAN PLATELET VOLUME 7.5 FL (7.4-10.4); PLATELET COUNT 220 X10'3 (140-440); RED CELL DISTRIBUTION WIDTH 14.9 % (11.5-14.5); WHITE BLOOD COUNT 16.6 X10'3 (4.5-11.0)
--- NOTE | 2019-12-19 19:19 | NUR ---
Problems reprioritized. Patient report given, questions answered & plan of care reviewed with Radhika PIMENTEL.
[2019-12-19 20:00] VITALS: BP 100/55
[2019-12-19] MEDS: amLODIPine 5mg tablet PO SCH (20:37)
[2019-12-19] MEDS: lisinopril 20mg tablet PO SCH (20:37)
[2019-12-19] MEDS: metoprolol succinate 25mg (24-HOUR) SR. Tablet PO SCH (20:46)
--- NOTE | 2019-12-19 23:29 | NUR ---
Dr Davison on the floor aware that patients KAYLI drain ouput over the last few shifts. Dr Davison also advised that patient wound culture to abdomen came back Positive for MRSA and was started on Vancomycin with pharmacy to dose. Received orders to take packing out of old stoma site.
[2019-12-20] VITALS: BP 109/61
--- NOTE | 2019-12-20 01:49 | NUR ---
Patient in room BA 357B. I have received report from MARGARITO TEJEDA and had the opportunity to ask questions and assume patient care.
--- NOTE | 2019-12-20 02:02 | NUR ---
Problems reprioritized. Patient report given, questions answered & plan of care reviewed with Graciela PIMENTEL.
[2019-12-20 04:48] LABS: BASOPHILS % (AUTO) 0.3 % (0-1); EOSINOPHILS # (AUTO) 0.3 X10'3 (0-0.9); HEMATOCRIT 24.7 % (35.0-45.0); HEMOGLOBIN 8.3 g/dl (12.0-16.0); LYMPHOCYTES # (AUTO) 2.1 X10'3 (1.1-4.8); LYMPHOCYTES % (AUTO) 15.8 % (21-51); MEAN CORPUSCULAR HEMOGLOBIN 33.7 PG (27.0-31.0); MEAN CORPUSCULAR HGB CONC 33.6 g/dL (33.0-36.5); MEAN PLATELET VOLUME 7.7 FL (7.4-10.4); MONOCYTES # (AUTO) 0.8 X10'3 (0-0.9); MONOCYTES % (AUTO) 5.6 % (2-12); NEUTROPHILS # (AUTO) 10.3 X10'3 (1.8-7.7); NEUTROPHILS % (AUTO) 76.3 % (42-75); PLATELET COUNT 176 X10'3 (140-440); RED BLOOD COUNT 2.47 X10'6 (4.20-5.60); RED CELL DISTRIBUTION WIDTH 14.7 % (11.5-14.5); WHITE BLOOD COUNT 13.5 X10'3 (4.5-11.0)
[2019-12-20 05:05] LABS: ALBUMIN 2.6 G/DL (3.4-5.0); ANION GAP 7 (8-16); BLOOD UREA NITROGEN 6 MG/DL (7-18); CHLORIDE 100 MMOL/L (99-107); CREATININE 0.67 MG/DL (0.40-0.90); GLUCOSE 91 MG/DL (70-104); POTASSIUM 4.4 MMOL/L (3.5-5.1); SODIUM 130 MMOL/L (135-145); eGFR > 90 ML/MIN
--- NOTE | 2019-12-20 06:30 | NUR ---
Patient in room BA 357. I have received report from MARGARITO Moya and had the opportunity to ask questions and assume patient care.
--- NOTE | 2019-12-20 06:32 | NUR ---
Problems reprioritized. Patient report given, questions answered & plan of care reviewed with MARGARITO BREWSTER.
--- NOTE | 2019-12-20 06:34 | NUR ---
Patient in room BA 357. I have received report from MARGARITO Moya and had the opportunity to ask questions and assume patient care.
[2019-12-20] MEDS: calcium carbonate/vitamin D3 tablet PO SCH (07:22)
[2019-12-20 07:52] VITALS: BP 112/71
[2019-12-20] MEDS: HYDROcodone/acetaminophen 10/325mg tab PO PRN ×2 (07:57→13:34)
[2019-12-20 11:00] VITALS: BP 120/77
[2019-12-20] MEDS: vancomycin/NS 1 GM ADD-VANTAGE 250 ML IV SCH (11:36)
--- NOTE | 2019-12-20 16:06 | NUR ---
Student documentation: I have reviewed and agree with all interventions, assessments performed and documented by SN Jennifer. Student Medication Administration: For this medication-pass time frame, all medication were reviewed, dispensed, administered and documented per hospital policy by SN Jennifer.
--- NOTE | 2019-12-20 17:07 | NUR ---
Patient has received discharge instructions and had the opportunity to ask any questions. Patient verbalized understanding of discharge instructions and did not have any questions. Patient had no signs of acute distress and no s/s of infection. Patient was discharged with all personal belongings and discharge instructions.
--- NOTE | 2019-12-20 17:10 | NUR ---
Discharge teaching discussed with patient by Jennifer JOSEPH. This RN was present and reinforced education for incision care and KAYLI drainage care. Patient verbalized understanding and stated she had no questions regarding teaching. Patient was alert and oriented and no apparent acute distress and no complaints. Patient aware that Dr. Davison office called in new prescription for Deshler and Bactrim. Patient dc'd with all personal belongings.
[2019-12-20] MEDS ORDERED: lactobacillus rhamnosus 10,000 MMU CELLS/CAPSULE PO SCH (20:00)
[2019-12-20] MEDS ORDERED: VANCOMYCIN LEVEL IV ONE (22:30)
== END 2019-12-20 16:55 | disposition home or self-care (01) | DRG 227 ==
LOC: PAS 08:08 → SUR 3N 17:07
PROVIDERS: ADMIT Surgery; ATTEND Surgery
PROC: 8E0W4CZ Robotic Assisted Procedure of Trunk Region, Percutaneous Endoscopic Approach (ICD-10-PCS; 2019-12-17)
PROC: 0WJF4ZZ Inspection of Abdominal Wall, Percutaneous Endoscopic Approach (ICD-10-PCS; 2019-12-17)
PROC: 0WUF0JZ Supplement Abdominal Wall with Synthetic Substitute, Open Approach (ICD-10-PCS; principal; 2019-12-17 12:37)
DX: K43.2 Incisional hernia without obstruction or gangrene (principal); K66.0 Peritoneal adhesions (postprocedural) (postinfection); Z20.828 Contact with and (suspected) exposure to other viral communicable diseases
CPT/HCPCS: 36415; 71046; 74176; 80048; 80053; 81001; 82948; 85025; 85027; 85610; 85730; 86885; 86900; 86901; 87070; 87075; 87077; 87081; 87102; 87186; 87635; 93005; A4215; A4618; A6258; A6266; A6402; A6449; C1758; C1781; C9290; G0378; J0131; J0690; J0694; J1170; J2175; J2250; J2704; J3010; J3370; J3480; J3490; J7120

== ENCOUNTER 2020-01-10 11:25 | Inpatient (IN) | payer MEDICAID ==
[2020-01-10] VITALS (14 sets, daily range): BP systolic 106–150; BP diastolic 67–80
[~2020-01-10] VITALS: Ht 172.7 cm; Wt 100.0 kg
[~2020-01-10 11:25] MED LIST changes: -BUPIVAcaine/PF 2.5 mg/ml (0.25%) 30ml vial ONE; -DOCUMENT DATE & TIME OF BETA-BLOCKER PO ONE; -ceFOXitin 2GM-NS 100mL ADDvant 100 ML IV ONE; -famotidine 20mg tablet PO ONE; -ringers solution, lacted 1,000 ML IV SCH
[2020-01-10] MEDS ORDERED: piperacillin/tazo 3.375gm/50ml 50 ML IV ONE ×2 (11:30→12:15)
[2020-01-10 11:54] LABS: BASOPHILS # (AUTO) 0.1 X10'3 (0-0.2); BASOPHILS % (AUTO) 0.6 % (0-1); EOSINOPHILS # (AUTO) 0.4 X10'3 (0-0.9); EOSINOPHILS % (AUTO) 3.1 % (0-6); HEMATOCRIT 29.3 % (35.0-45.0); HEMOGLOBIN 9.9 g/dl (12.0-16.0); LYMPHOCYTES # (AUTO) 1.8 X10'3 (1.1-4.8); LYMPHOCYTES % (AUTO) 14.8 % (21-51); MEAN CORPUSCULAR HEMOGLOBIN 32.7 PG (27.0-31.0); MEAN CORPUSCULAR HGB CONC 33.6 g/dL (33.0-36.5); MEAN CORPUSCULAR VOLUME 97.3 FL (78-98); MEAN PLATELET VOLUME 7.2 FL (7.4-10.4); MONOCYTES # (AUTO) 0.7 X10'3 (0-0.9); MONOCYTES % (AUTO) 5.7 % (2-12); NEUTROPHILS % (AUTO) 75.8 % (42-75); PLATELET COUNT 244 X10'3 (140-440); RED BLOOD COUNT 3.02 X10'6 (4.20-5.60); RED CELL DISTRIBUTION WIDTH 13.6 % (11.5-14.5); WHITE BLOOD COUNT 11.9 X10'3 (4.5-11.0)
[2020-01-10 12:07] LABS: ALANINE AMINOTRANSFERASE 31 U/L (12-78); ALBUMIN 2.4 G/DL (3.4-5.0); ALBUMIN/GLOBULIN RATIO 0.4 (1.1-1.5); ALKALINE PHOSPHATASE 640 IU/L (46-116); ANION GAP 8 (8-16); ASPARTATE AMINO TRANSFERASE 69 U/L (10-37); BILIRUBIN,TOTAL 0.8 MG/DL (0.1-1.0); BLOOD UREA NITROGEN 4 MG/DL (7-18); BUN/CREATININE RATIO 5.9 (6.6-38.0); CALCIUM 8.8 MG/DL (8.5-10.1); CHLORIDE 102 MMOL/L (99-107); CREATININE 0.68 MG/DL (0.40-0.90); GLUCOSE 100 MG/DL (70-104); LIPASE < 50 U/L (73-393); POTASSIUM 3.7 MMOL/L (3.5-5.1); SODIUM 133 MMOL/L (135-145); TOTAL CARBON DIOXIDE 23.3 MMOL/L (24-32); TOTAL PROTEIN 8.7 G/DL (6.4-8.2); eGFR 89 ML/MIN
--- NOTE | 2020-01-10 12:20 | NUR ---
To CT at this time via wheelchair.
--- NOTE | 2020-01-10 12:36 | NUR ---
Back from CT at this time, all safety measures in place.
[2020-01-10] MEDS ORDERED: magnesium 4gm in 100ml NS 100 ML IV PRN (13:15)
[2020-01-10] MEDS ORDERED: potassium CL 10mEq/100ml bag 100 ML IV PRN ×2 (13:15)
[2020-01-10] MEDS ORDERED: ondansetron/PF 4mg/2ml inj IV PRN ×2 (13:15→20:25)
[2020-01-10] MEDS ORDERED: magnesium Cl slow-release 64mg tablet PO PRN (13:15)
[2020-01-10] MEDS ORDERED: magnesium 2GM in 50ml NS 50 ML IV PRN (13:15)
[2020-01-10] MEDS ORDERED: potassium Cl 20 mEq SR tablet PO PRN ×2 (13:15)
[2020-01-10] MEDS: normal saline 1000ml 1,000 ML IV SCH ×2 (13:15→23:15)
[2020-01-10] MEDS ORDERED: acetaminophen 325mg tablet PO PRN (13:15)
--- NOTE | 2020-01-10 15:43 | NUR ---
Patient in room ED 7. I have received report from ER nurse, and had the opportunity to ask questions and assume patient care.
[2020-01-10 17:41] LABS: % IRON SATURATION 19 % (11-46); IRON 37 UG/DL (49-151); TOTAL IRON BINDING CAPACITY 191 UG/DL (259-388)
--- NOTE | 2020-01-10 17:48 | NUR ---
keep pt NPO per DR Davison.
[2020-01-10] MEDS: morphine 2 MG/ML inj. syringe IV PRN ×2 (17:55→23:34)
--- NOTE | 2020-01-10 18:42 | NUR ---
Problems reprioritized. Patient report given, questions answered & plan of care reviewed with MARGARITO CARDOZO.
[2020-01-10] MEDS ORDERED: vancomycin/NS 1 GM ADD-VANTAGE 250 ML IV ONE (19:45)
[2020-01-10] MEDS: K and/or MAG REPLACEMENT MC SCH (20:00)
[2020-01-10] MEDS ORDERED: ringers solution, lacted 1,000 ML IV SCH (20:25)
[2020-01-10] MEDS ORDERED: morphine 4 MG/ML inj SYRINge IV PRN (20:25)
[2020-01-10] MEDS ORDERED: morphine 2 MG/ML inj. syringe IV PRN (20:25)
[2020-01-10] MEDS ORDERED: midazolam 2 mg/2 ml injection ONE (20:25)
[2020-01-10] MEDS ORDERED: meperidine/PF 25mg/ml syringe IV PRN ×3 (20:25)
[2020-01-10] MEDS ORDERED: sevoflurane 250ml liquid IH ONE (20:25)
[2020-01-10] MEDS ORDERED: ondansetron/PF 4mg/2ml inj ONE (20:25)
[2020-01-10] MEDS ORDERED: proCHLORperazine 10 MG/2 ml inj IV PRN (20:25)
[2020-01-10] MEDS ORDERED: fentaNYL /PF 50mcg/ml 5ml ampule ONE (20:30)
[2020-01-10] MEDS ORDERED: sugammadex 200mg/2ml injection IV ONE (21:06)
--- NOTE | 2020-01-10 21:12 | NUR ---
Received from OR via BED, accompanied by Anesthesiologist DR DAVIS and report given by Anesthesiologist. PT DROWSY, DENIES PAIN, ABDOMEN W/WOUND VAC W/DRSG INTACT, SETTINGS 125MMHG LCS W/GOOD SEAL, SEROUS/BROWN DRAINAGE. Addendum: 01/10/20 at 2147 by Anju Roa RN Amended: Links added.
[2020-01-10] MEDS: piperacillin/tazo 3.375gm/50ml 50 ML IV SCH (21:19)
[2020-01-10] MEDS ORDERED: rocuronium 10mg/ml inj IV ONE (21:28)
[2020-01-10] MEDS ORDERED: propofol inj 20 ML IV ONE (21:28)
[2020-01-10] MEDS ORDERED: LIDOcaine 2% (20mg/ml) 5ml vial ONE (21:28)
[2020-01-10] MEDS ORDERED: neostigmine methylsulfate 1 MG/ML 10ml vial ONE (21:28)
[2020-01-10] MEDS ORDERED: glycopyrrolate 0.2mg/ml inj ONE (21:28)
[2020-01-10] MEDS ORDERED: vancomycin/NS 1 GM ADD-VANTAGE 250 ML IV SCH (22:00)
--- NOTE | 2020-01-10 22:22 | NUR ---
Report called to receiving nurse. Transferred via BED, NO Belongings, RECEIVING RN AT BEDSIDE TO RECEIVE PT, CALL LIGHT GIVEN, SIDE RAILS UP X 2. Special Issues communicated to receiving nurse. YES. Addendum: 01/10/20 at 2230 by Anju Roa RN Amended: Links added.
[2020-01-11] VITALS (8 sets, daily range): BP systolic 105–140; BP diastolic 65–84
[2020-01-11] MEDS: HYDROcodone/acetaminophen 10/325mg tab PO PRN ×4 (04:10→22:15)
[2020-01-11 06:10] LABS: BASOPHILS % (AUTO) 0.5 % (0-1); EOSINOPHILS # (AUTO) 0.4 X10'3 (0-0.9); EOSINOPHILS % (AUTO) 4.6 % (0-6); HEMATOCRIT 25.6 % (35.0-45.0); HEMOGLOBIN 8.7 g/dl (12.0-16.0); LYMPHOCYTES # (AUTO) 1.2 X10'3 (1.1-4.8); LYMPHOCYTES % (AUTO) 13.9 % (21-51); MEAN CORPUSCULAR HEMOGLOBIN 33.6 PG (27.0-31.0); MEAN CORPUSCULAR HGB CONC 33.8 g/dL (33.0-36.5); MEAN CORPUSCULAR VOLUME 99.5 FL (78-98); MEAN PLATELET VOLUME 7.1 FL (7.4-10.4); MONOCYTES # (AUTO) 0.6 X10'3 (0-0.9); MONOCYTES % (AUTO) 6.8 % (2-12); NEUTROPHILS # (AUTO) 6.2 X10'3 (1.8-7.7); NEUTROPHILS % (AUTO) 74.2 % (42-75); PLATELET COUNT 182 X10'3 (140-440); RED BLOOD COUNT 2.57 X10'6 (4.20-5.60); WHITE BLOOD COUNT 8.3 X10'3 (4.5-11.0)
[2020-01-11 06:26] LABS: ANION GAP 10 (8-16); BLOOD UREA NITROGEN 4 MG/DL (7-18); BUN/CREATININE RATIO 7.8 (6.6-38.0); CALCIUM 8.1 MG/DL (8.5-10.1); CHLORIDE 105 MMOL/L (99-107); CREATININE 0.51 MG/DL (0.40-0.90); GLUCOSE 87 MG/DL (70-104); MAGNESIUM 1.6 MG/DL (1.5-2.4); POTASSIUM 3.8 MMOL/L (3.5-5.1); SODIUM 136 MMOL/L (135-145); TOTAL CARBON DIOXIDE 20.6 MMOL/L (24-32); eGFR > 90 ML/MIN
--- NOTE | 2020-01-11 06:57 | NUR ---
Problems reprioritized. Patient report given, questions answered & plan of care reviewed with FILOMENA. Addendum: 01/11/20 at 0657 by Timbo Cortes RN Amended: Links added.
[2020-01-11] MEDS: vancomycin/NS 1 GM ADD-VANTAGE 250 ML IV SCH ×3 (07:57→23:25)
[2020-01-11] MEDS: K and/or MAG REPLACEMENT MC SCH ×2 (08:00→20:00)
[2020-01-11] MEDS: normal saline 1000ml 1,000 ML IV SCH ×2 (09:15→19:15)
--- NOTE | 2020-01-11 11:02 | NUR ---
WOUND INFECTION EDUCATION PROVIDED BY WOUND CARE 1. Patient instructed to call their primary doctor, or go the ED immediately if any of the following symptoms occur: * Increased pain in wound * Increase in drainage from the wound * Redness in the skin surrounding the wound * Warmth in the skin surrounding the wound * Bleeding from the wound * Temperature of 101 or greater 2. If any of these occur while in the hospital tell a nurse immediately. WOUND VAC EDUCATION PROVIDED BY WOUND CARE 1. Patient instructed to call the Wound Center or their Home Health Agency immediately if: * They notice a change in the color or amount of the fluid in the canister. * Their wound looks more red than usual or has a foul smell. * The skin around their wound looks reddened or irritated. * The dressing feels loose or appears to be loose. * They experience any increase or changes in their pain. * The alarm will not turn off. 2. Patient instructed that they should not be disconnected from suction for more than 2 hours at a time. * If they are not able to get the suction back on, they need to remove the dressing and take all of the foam out of the wound. * Then moisten sterile gauze with normal saline and place on/in the wound. * Change the dressing once a day until arrangements have been made to replace the wound vac dressing. 3. Patient instructed to turn the wound vac machine OFF and call 911 or go to the ED immediately if their canister fills rapidly with blood. 4. If any of these occur while in the hospital tell a nurse immediately. Addendum: 01/11/20 at 1103 by Raven Pineda RN Amended: Links added.
[2020-01-11] MEDS: piperacillin/tazo 3.375gm/50ml 50 ML IV SCH ×2 (11:03→18:37)
[2020-01-11] MEDS: amLODIPine 5mg tablet PO SCH (17:20)
[2020-01-11] MEDS: lisinopril 10 MG tablet PO SCH (17:21)
--- NOTE | 2020-01-11 18:07 | NUR ---
Problems reprioritized. Patient report given, questions answered & plan of care reviewed with Alexa PIMENTEL.
--- NOTE | 2020-01-11 18:43 | NUR ---
Patient in room BA 350. I have received report from MARGARITO Spencer and had the opportunity to ask questions and assume patient care.
[2020-01-11] MEDS: calcium carbonate/vitamin D3 tablet PO SCH (20:09)
[2020-01-11] MEDS: lactobacillus rhamnosus 10,000 MMU CELLS/CAPSULE PO SCH (20:09)
[2020-01-11] MEDS ORDERED: metoprolol succinate 25mg (24-HOUR) SR. Tablet PO SCH (21:00)
[2020-01-11] MEDS ORDERED: VANCOMYCIN LEVEL IV ONE (23:30)
[2020-01-12 00:15] VITALS: BP 112/75
[2020-01-12] MEDS: piperacillin/tazo 3.375gm/50ml 50 ML IV SCH ×3 (00:56→16:00)
[2020-01-12] MEDS: HYDROcodone/acetaminophen 10/325mg tab PO PRN ×2 (04:20→09:06)
[2020-01-12] MEDS: normal saline 1000ml 1,000 ML IV SCH ×2 (04:20→15:15)
[2020-01-12 05:44] LABS: BASOPHILS % (AUTO) 0.6 % (0-1); EOSINOPHILS # (AUTO) 0.5 X10'3 (0-0.9); EOSINOPHILS % (AUTO) 5.5 % (0-6); HEMATOCRIT 26.3 % (35.0-45.0); LYMPHOCYTES # (AUTO) 1.5 X10'3 (1.1-4.8); LYMPHOCYTES % (AUTO) 17.9 % (21-51); MEAN CORPUSCULAR HEMOGLOBIN 34.1 PG (27.0-31.0); MEAN CORPUSCULAR HGB CONC 34.3 g/dL (33.0-36.5); MEAN CORPUSCULAR VOLUME 99.3 FL (78-98); MEAN PLATELET VOLUME 7.1 FL (7.4-10.4); MONOCYTES # (AUTO) 0.5 X10'3 (0-0.9); MONOCYTES % (AUTO) 5.7 % (2-12); NEUTROPHILS # (AUTO) 5.9 X10'3 (1.8-7.7); NEUTROPHILS % (AUTO) 70.3 % (42-75); PLATELET COUNT 188 X10'3 (140-440); RED BLOOD COUNT 2.65 X10'6 (4.20-5.60); RED CELL DISTRIBUTION WIDTH 13.8 % (11.5-14.5); WHITE BLOOD COUNT 8.4 X10'3 (4.5-11.0)
[2020-01-12 05:54] LABS: ALBUMIN 1.9 G/DL (3.4-5.0); ANION GAP 10 (8-16); BLOOD UREA NITROGEN 2 MG/DL (7-18); BUN/CREATININE RATIO 3.3 (6.6-38.0); CALCIUM 8.5 MG/DL (8.5-10.1); CHLORIDE 105 MMOL/L (99-107); GLUCOSE 92 MG/DL (70-104); MAGNESIUM 1.4 MG/DL (1.5-2.4); POTASSIUM 3.8 MMOL/L (3.5-5.1); SODIUM 136 MMOL/L (135-145); TOTAL CARBON DIOXIDE 20.7 MMOL/L (24-32); eGFR > 90 ML/MIN
--- NOTE | 2020-01-12 06:15 | NUR ---
Patient in room BA 350. I have received report from Alexa PIMENTEL and had the opportunity to ask questions and assume patient care.
--- NOTE | 2020-01-12 06:17 | NUR ---
Problems reprioritized. Patient report given, questions answered & plan of care reviewed with MARGARITO Spencer.
[2020-01-12 07:06] VITALS: BP 109/72
[2020-01-12] MEDS: calcium carbonate/vitamin D3 tablet PO SCH (07:42)
[2020-01-12] MEDS: lactobacillus rhamnosus 10,000 MMU CELLS/CAPSULE PO SCH (07:42)
[2020-01-12] MEDS: lisinopril 10 MG tablet PO SCH (07:43)
[2020-01-12] MEDS: amLODIPine 5mg tablet PO SCH (07:43)
[2020-01-12] MEDS: K and/or MAG REPLACEMENT MC SCH (08:00)
[2020-01-12] MEDS: VANCOmycin 1250MG/NS 250ml Bag 250 ML IV SCH ×2 (09:45→16:00)
[2020-01-12 14:56] VITALS: BP 136/85
[2020-01-12] MEDS ORDERED: SULF1TAB49 PO (15:56)
--- NOTE | 2020-01-12 16:45 | NUR ---
PATIENT DISCHARGE WAS DONE WITH PATIENT VERBALLY AND ALSO SHOW WOUND VAC DEMONSTRATION. PATIENT EDUCATED ON ALL ASPECTS OF WOUND CARE. PATIENT DISCHARGE WITH NEW Rx AND UNDERSTANDING MEDICATION CHANGES. PATIENT LEFT WITH [facility] WOUND [facility] AND HAS HOME HEALTH CARE TO CHANGE Q3D. PATIENT IV TAKEN OUT AT DISCHARGE, CANULA WAS WHOLE AND INTACT UPON DISCHARGE. PATIENT TAKEN OUT VIA WHEELCHAIR AND TRANSPORTED SELF HOME . PATIENT LEFT WITH ALL BELONGINGS AT DISCHARGE.
[2020-01-13] MEDS ORDERED: VANCOMYCIN LEVEL IV ONE (07:30)
== END 2020-01-12 16:30 | disposition home health service (06) | DRG 793 ==
LOC: ER 11:26 → ED HOLD 13:11 → SUR 3N 16:15
PROVIDERS: ADMIT Internal Medicine; ATTEND Surgery
PROC: 0W9F0ZZ Drainage of Abdominal Wall, Open Approach (ICD-10-PCS; principal; 2020-01-10 20:25)
DX: L76.34 Postprocedural seroma of skin and subcutaneous tissue following other procedure (principal); I10 Essential (primary) hypertension; Z93.3 Colostomy status; D62 Acute posthemorrhagic anemia; Y83.8 Other surgical procedures as the cause of abnormal reaction of the patient, or of later complication, without mention of misadventure at the time of the procedure; Y82.8 Other medical devices associated with adverse incidents; K57.92 Diverticulitis of intestine, part unspecified, without perforation or abscess without bleeding
CPT/HCPCS: 36415; 74176; 80048; 80053; 80202; 83540; 83550; 83690; 83735; 85025; 87070; 87075; 87077; 87081; 87102; 87186; 93005; 96365; 99285; A4215; A4618; A7000; C9399; G0378; J2001; J2250; J2270; J2405; J2543; J2704; J2710; J3010; J3370; J3490; J7030; J7120

== ENCOUNTER 2020-01-19 08:08 | Outpatient (CLI) | payer MEDICAID ==
[~2020-01-19 08:08] MED LIST changes: +SULF1TAB49 PO
== END 2020-01-19 23:59 | disposition home or self-care (01) ==
LOC: WOUND CARE 08:08
PROVIDERS: ATTEND Nurse Practitioner
DX: T81.31XA Disruption of external operation (surgical) wound, not elsewhere classified, initial encounter (principal); S31.109A Unspecified open wound of abdominal wall, unspecified quadrant without penetration into peritoneal cavity, initial encounter; I10 Essential (primary) hypertension; K43.2 Incisional hernia without obstruction or gangrene; K66.0 Peritoneal adhesions (postprocedural) (postinfection); M19.90 Unspecified osteoarthritis, unspecified site; F41.9 Anxiety disorder, unspecified; Z93.3 Colostomy status; Z87.891 Personal history of nicotine dependence; X58.XXXA Exposure to other specified factors, initial encounter; Y92.234 Operating room of hospital as the place of occurrence of the external cause; Y83.8 Other surgical procedures as the cause of abnormal reaction of the patient, or of later complication, without mention of misadventure at the time of the procedure; Y93.89 Activity, other specified; Y92.89 Other specified places as the place of occurrence of the external cause; Y99.8 Other external cause status
CPT/HCPCS: 11042; 87070; 87075; 87077; 87186; 97605

== ENCOUNTER 2020-01-24 08:07 | Outpatient (CLI) | payer MEDICAID ==
[~2020-01-24 08:07] MED LIST changes: -SULF1TAB49 PO
[2020-01-24] MEDS ORDERED: LIDOcaine 2% 5ml jelly ONE ×2 (08:35)
== END 2020-01-24 23:59 | disposition home or self-care (01) ==
LOC: WOUND CARE 08:07
PROVIDERS: ATTEND Nurse Practitioner Family
DX: T81.31XD Disruption of external operation (surgical) wound, not elsewhere classified, subsequent encounter (principal); S31.109D Unspecified open wound of abdominal wall, unspecified quadrant without penetration into peritoneal cavity, subsequent encounter; K43.2 Incisional hernia without obstruction or gangrene; I10 Essential (primary) hypertension; F41.9 Anxiety disorder, unspecified; K66.0 Peritoneal adhesions (postprocedural) (postinfection); M19.90 Unspecified osteoarthritis, unspecified site; Z93.3 Colostomy status; Z87.891 Personal history of nicotine dependence; Y83.8 Other surgical procedures as the cause of abnormal reaction of the patient, or of later complication, without mention of misadventure at the time of the procedure; X58.XXXD Exposure to other specified factors, subsequent encounter
CPT/HCPCS: 97597

== ENCOUNTER 2020-01-31 08:23 | Outpatient (CLI) | payer MEDICAID ==
[2020-01-31] MEDS ORDERED: LIDOcaine 2% 5ml jelly ONE (09:21)
== END 2020-01-31 23:59 | disposition home or self-care (01) ==
LOC: WOUND CARE 08:23
PROVIDERS: ATTEND Nurse Practitioner Family
DX: T81.31XD Disruption of external operation (surgical) wound, not elsewhere classified, subsequent encounter (principal); S31.109D Unspecified open wound of abdominal wall, unspecified quadrant without penetration into peritoneal cavity, subsequent encounter; K43.2 Incisional hernia without obstruction or gangrene; I10 Essential (primary) hypertension; F41.9 Anxiety disorder, unspecified; K66.0 Peritoneal adhesions (postprocedural) (postinfection); M19.90 Unspecified osteoarthritis, unspecified site; Z93.3 Colostomy status; Z87.891 Personal history of nicotine dependence; Y83.8 Other surgical procedures as the cause of abnormal reaction of the patient, or of later complication, without mention of misadventure at the time of the procedure; X58.XXXD Exposure to other specified factors, subsequent encounter
CPT/HCPCS: 97597

== ENCOUNTER 2020-02-09 08:03 | Outpatient (CLI) | payer MEDICAID ==
[~2020-02-09 08:03] MED LIST changes: +SULF1TAB49 PO
== END 2020-02-09 23:59 | disposition home or self-care (01) ==
LOC: WOUND CARE 08:03
PROVIDERS: ATTEND Nurse Practitioner
DX: T81.31XD Disruption of external operation (surgical) wound, not elsewhere classified, subsequent encounter (principal); S31.109D Unspecified open wound of abdominal wall, unspecified quadrant without penetration into peritoneal cavity, subsequent encounter; K43.2 Incisional hernia without obstruction or gangrene; I10 Essential (primary) hypertension; K66.0 Peritoneal adhesions (postprocedural) (postinfection); M19.90 Unspecified osteoarthritis, unspecified site; K57.92 Diverticulitis of intestine, part unspecified, without perforation or abscess without bleeding; F41.9 Anxiety disorder, unspecified; Z93.3 Colostomy status; Z87.891 Personal history of nicotine dependence; X58.XXXD Exposure to other specified factors, subsequent encounter; Y83.8 Other surgical procedures as the cause of abnormal reaction of the patient, or of later complication, without mention of misadventure at the time of the procedure
CPT/HCPCS: 97605

== ENCOUNTER 2020-02-14 08:25 | Outpatient (CLI) | payer MEDICAID ==
[~2020-02-14 08:25] MED LIST changes: -SULF1TAB49 PO
[2020-02-14] MEDS ORDERED: LIDOcaine 2% 5ml jelly ONE (08:51)
== END 2020-02-14 23:59 | disposition home or self-care (01) ==
LOC: WOUND CARE 08:25
PROVIDERS: ATTEND Nurse Practitioner Family
DX: T81.31XD Disruption of external operation (surgical) wound, not elsewhere classified, subsequent encounter (principal); S31.109D Unspecified open wound of abdominal wall, unspecified quadrant without penetration into peritoneal cavity, subsequent encounter; K43.2 Incisional hernia without obstruction or gangrene; I10 Essential (primary) hypertension; K66.0 Peritoneal adhesions (postprocedural) (postinfection); M19.90 Unspecified osteoarthritis, unspecified site; K57.92 Diverticulitis of intestine, part unspecified, without perforation or abscess without bleeding; F41.9 Anxiety disorder, unspecified; Z93.3 Colostomy status; Z87.891 Personal history of nicotine dependence; X58.XXXD Exposure to other specified factors, subsequent encounter; Y83.8 Other surgical procedures as the cause of abnormal reaction of the patient, or of later complication, without mention of misadventure at the time of the procedure
CPT/HCPCS: 97597

== ENCOUNTER 2020-02-21 08:14 | Outpatient (CLI) | payer MEDICAID | END 2020-02-21 23:59 | disposition home or self-care (01) | LOC: WOUND CARE 08:14 | PROVIDERS: ATTEND Nurse Practitioner Family | DX: T81.31XD Disruption of external operation (surgical) wound, not elsewhere classified, subsequent encounter (principal); S31.109D Unspecified open wound of abdominal wall, unspecified quadrant without penetration into peritoneal cavity, subsequent encounter; K43.2 Incisional hernia without obstruction or gangrene; I10 Essential (primary) hypertension; K66.0 Peritoneal adhesions (postprocedural) (postinfection); M19.90 Unspecified osteoarthritis, unspecified site; K57.92 Diverticulitis of intestine, part unspecified, without perforation or abscess without bleeding; F41.9 Anxiety disorder, unspecified; Z93.3 Colostomy status; Z87.891 Personal history of nicotine dependence; X58.XXXD Exposure to other specified factors, subsequent encounter; Y83.8 Other surgical procedures as the cause of abnormal reaction of the patient, or of later complication, without mention of misadventure at the time of the procedure | CPT/HCPCS: 97605 ==

== ENCOUNTER 2020-03-14 10:47 | Inpatient (IN) | payer MEDICAID ==
[~2020-03-14] VITALS: Ht 170.2 cm; Wt 81.5 kg
[~2020-03-14 10:47] MED LIST changes: +LIDOcaine 2% 5ml jelly ONE
[2020-03-14] MEDS ORDERED: magnesium hydroxide 30ml (MOM) UD suspension PO PRN (12:10)
[2020-03-14] MEDS ORDERED: ondansetron/PF 4mg/2ml inj IV PRN (12:10)
[2020-03-14] MEDS ORDERED: mag hydrox/Alum hydrox/simeth 30ml oral suspension PO PRN (12:10)
[2020-03-14] MEDS ORDERED: acetaminophen 325mg tablet PO PRN (12:10)
[2020-03-14] MEDS ORDERED: morphine 2 MG/ML inj. syringe IV PRN (12:10)
[2020-03-14 13:10] VITALS: BP 159/103
[2020-03-14 13:13] LABS: BASOPHILS # (AUTO) 0.1 X10'3 (0-0.2); BASOPHILS % (AUTO) 0.7 % (0-1); EOSINOPHILS # (AUTO) 0.1 X10'3 (0-0.9); EOSINOPHILS % (AUTO) 1.7 % (0-6); HEMATOCRIT 35.6 % (35.0-45.0); HEMOGLOBIN 11.9 g/dl (12.0-16.0); LYMPHOCYTES # (AUTO) 2.1 X10'3 (1.1-4.8); LYMPHOCYTES % (AUTO) 25.7 % (21-51); MEAN CORPUSCULAR HEMOGLOBIN 30.2 PG (27.0-31.0); MEAN CORPUSCULAR HGB CONC 33.5 g/dL (33.0-36.5); MEAN CORPUSCULAR VOLUME 90.1 FL (78-98); MEAN PLATELET VOLUME 7.7 FL (7.4-10.4); MONOCYTES # (AUTO) 0.7 X10'3 (0-0.9); MONOCYTES % (AUTO) 8.8 % (2-12); NEUTROPHILS # (AUTO) 5.2 X10'3 (1.8-7.7); NEUTROPHILS % (AUTO) 63.1 % (42-75); PLATELET COUNT 240 X10'3 (140-440); RED BLOOD COUNT 3.95 X10'6 (4.20-5.60); RED CELL DISTRIBUTION WIDTH 13.3 % (11.5-14.5); WHITE BLOOD COUNT 8.2 X10'3 (4.5-11.0)
[2020-03-14 13:28] LABS: ALBUMIN 3.2 G/DL (3.4-5.0); ANION GAP 11 (8-16); BLOOD UREA NITROGEN 6 MG/DL (7-18); BUN/CREATININE RATIO 12.2 (6.6-38.0); CHLORIDE 100 MMOL/L (99-107); CREATININE 0.49 MG/DL (0.40-0.90); GLUCOSE 99 MG/DL (70-104); POTASSIUM 3.5 MMOL/L (3.5-5.1); SODIUM 136 MMOL/L (135-145); TOTAL CARBON DIOXIDE 25.5 MMOL/L (24-32); eGFR > 90 ML/MIN
[2020-03-14] MEDS: normal saline 1000ml 1,000 ML IV SCH ×2 (14:01→23:59)
[2020-03-14] MEDS: vancomycin/NS 1 GM ADD-VANTAGE 250 ML IV SCH (14:03)
--- NOTE | 2020-03-14 18:06 | NUR ---
Problems reprioritized. Patient report given, questions answered & plan of care reviewed with Kai PIMENTEL.
[2020-03-14 18:50] VITALS: BP 164/90
[2020-03-14 19:00] VITALS: BP 164/90
--- NOTE | 2020-03-14 19:08 | NUR ---
CHANGED ABD DRSG AND APPLIED A 6 x 6 OPTIFOAM.
[2020-03-14] MEDS: ibuprofen tablet 400 MG TABLET PO PRN (19:59)
[2020-03-14] MEDS: acetaminophen 325mg tablet PO PRN (19:59)
[2020-03-14] MEDS: amLODIPine 5mg tablet PO SCH (20:48)
[2020-03-14] MEDS: diatr meglu/diatrizoate 30ml oral sol.-(3 dose) bottle PO SCH (20:48)
[2020-03-14] MEDS: lisinopril 20mg tablet PO SCH (20:48)
[2020-03-14] MEDS: metoprolol succinate 25mg (24-HOUR) SR. Tablet PO SCH (20:48)
[2020-03-15] VITALS (17 sets, daily range): BP systolic 109–155; BP diastolic 72–85
[2020-03-15] MEDS: vancomycin/NS 1 GM ADD-VANTAGE 250 ML IV SCH ×2 (01:09→13:19)
[2020-03-15] MEDS: ibuprofen tablet 400 MG TABLET PO PRN ×2 (04:43→21:52)
[2020-03-15] MEDS: acetaminophen 325mg tablet PO PRN (04:43)
[2020-03-15 06:16] LABS: BASOPHILS % (AUTO) 0.5 % (0-1); EOSINOPHILS # (AUTO) 0.2 X10'3 (0-0.9); EOSINOPHILS % (AUTO) 2.7 % (0-6); HEMATOCRIT 32.9 % (35.0-45.0); HEMOGLOBIN 10.9 g/dl (12.0-16.0); LYMPHOCYTES # (AUTO) 1.7 X10'3 (1.1-4.8); LYMPHOCYTES % (AUTO) 28.2 % (21-51); MEAN CORPUSCULAR HEMOGLOBIN 30.3 PG (27.0-31.0); MEAN CORPUSCULAR HGB CONC 33.2 g/dL (33.0-36.5); MEAN CORPUSCULAR VOLUME 91.2 FL (78-98); MEAN PLATELET VOLUME 7.6 FL (7.4-10.4); MONOCYTES # (AUTO) 0.6 X10'3 (0-0.9); NEUTROPHILS # (AUTO) 3.7 X10'3 (1.8-7.7); NEUTROPHILS % (AUTO) 59.6 % (42-75); PLATELET COUNT 187 X10'3 (140-440); RED BLOOD COUNT 3.61 X10'6 (4.20-5.60); RED CELL DISTRIBUTION WIDTH 13.5 % (11.5-14.5); WHITE BLOOD COUNT 6.2 X10'3 (4.5-11.0)
[2020-03-15 06:30] LABS: ALBUMIN 2.7 G/DL (3.4-5.0); ANION GAP 7 (8-16); BLOOD UREA NITROGEN 6 MG/DL (7-18); BUN/CREATININE RATIO 12.8 (6.6-38.0); CALCIUM 8.6 MG/DL (8.5-10.1); CHLORIDE 104 MMOL/L (99-107); CREATININE 0.47 MG/DL (0.40-0.90); GLUCOSE 101 MG/DL (70-104); POTASSIUM 3.7 MMOL/L (3.5-5.1); SODIUM 137 MMOL/L (135-145); TOTAL CARBON DIOXIDE 25.9 MMOL/L (24-32); eGFR > 90 ML/MIN
--- NOTE | 2020-03-15 06:41 | NUR ---
Problems reprioritized. Patient report given, questions answered & plan of care reviewed with SPENCER. Addendum: 03/15/20 at 0642 by Timbo Cortes RN Amended: Links added.
[2020-03-15] MEDS: enoxaparin 40mg/0.4ml syringe SUBCUT SCH (07:31)
[2020-03-15] MEDS: diatr meglu/diatrizoate 30ml oral sol.-(3 dose) bottle PO SCH ×2 (07:35→09:34)
[2020-03-15] MEDS: normal saline 1000ml 1,000 ML IV SCH ×3 (07:36→20:18)
--- NOTE | 2020-03-15 18:11 | NUR ---
Problems reprioritized. Patient report given, questions answered & plan of care reviewed with MARCOS Gonzales RN.
--- NOTE | 2020-03-15 18:12 | NUR ---
CALLED REPORT TO MARGARITO SHEPHERD IN RECOVERY ROOM. TECHS ARE HERE TO PICK PATIENT UP.
--- NOTE | 2020-03-15 18:19 | NUR ---
Patient in room BA 353. I have received report from MARGARITO Lanier and had the opportunity to ask questions and assume patient care.
[2020-03-15] MEDS ORDERED: sevoflurane 250ml liquid IH ONE (18:38)
[2020-03-15] MEDS ORDERED: dexamethasone sod phosphate 10mg/ml inj ONE (18:38)
[2020-03-15] MEDS ORDERED: hydrALAZINE 20mg/ml inj. IV PRN (18:40)
[2020-03-15] MEDS ORDERED: labetalol 20mg/4ml (5mg/ml) syringe IV PRN (18:40)
[2020-03-15] MEDS ORDERED: morphine 2 MG/ML inj. syringe IV PRN (18:40)
[2020-03-15] MEDS ORDERED: ondansetron/PF 4mg/2ml inj IV PRN (18:40)
[2020-03-15] MEDS ORDERED: morphine 4 MG/ML inj SYRINge IV PRN (18:40)
[2020-03-15] MEDS ORDERED: fentaNYL/PF 50MCG/1 ML 2ML syringe IV PRN ×2 (18:40)
[2020-03-15] MEDS ORDERED: ringers solution, lacted 1,000 ML IV SCH (18:40)
[2020-03-15] MEDS ORDERED: fentaNYL/PF 50MCG/1 ML 2ML syringe ONE (18:43)
[2020-03-15] MEDS ORDERED: midazolam 2 mg/2 ml injection ONE (18:44)
[2020-03-15] MEDS ORDERED: succinylcholine 20mg/ml inj IV ONE (18:50)
[2020-03-15] MEDS ORDERED: LIDOcaine 2% (20mg/ml) 5ml vial ONE (18:50)
[2020-03-15] MEDS ORDERED: propofol inj 20 ML IV ONE (18:50)
[2020-03-15] MEDS ORDERED: ondansetron/PF 4mg/2ml inj ONE (18:51)
--- NOTE | 2020-03-15 19:40 | NUR ---
Received from OR via BED , accompanied by Anesthesiologist DR DORMAN and report given by Anesthesiolgist. PATIENT WAKING UP, DENIES PAIN, V/S WNL, NEUROVASCULAR CHECKS INTACT, 20G PIV RUE, SCD ON, LARGE DRESSING ABDOMEN CDI.
--- NOTE | 2020-03-15 19:52 | NUR ---
Patient in room BA 353. I have received report from Cezar counter former and had the opportunity to ask questions and assume patient care. States min blood loss, large abd dressing with 4x4's and abd pad. No pain. VSS with HTN SBP in the 150's, will check on diet order.
--- NOTE | 2020-03-15 20:07 | NUR ---
Patient arrived to floor.
--- NOTE | 2020-03-15 20:10 | NUR ---
PATIENT A&OX4, DENIES PAIN, V/S WNL, NEUROVASCULAR CHECKS INTACT, 20G PIV RUE, SCD ON, LARGE DRESSING ABDOMEN CDI. PATIENT TAKEN TO 353 WITH ALL BELONGINGS AND HOOKED UP TO MONITORS IN ROOM AND REPORT GIVEN TO INDUSTRIAL SPRAY PAINTER WHO HAS TAKEN OVER PATIENT CARE
[2020-03-15] MEDS: morphine 2 MG/ML inj. syringe IV PRN (20:14)
[2020-03-15] MEDS: metoprolol succinate 25mg (24-HOUR) SR. Tablet PO SCH (21:50)
[2020-03-15] MEDS: amLODIPine 5mg tablet PO SCH (21:50)
[2020-03-15] MEDS: lisinopril 20mg tablet PO SCH (21:50)
[2020-03-16] MEDS: vancomycin/NS 1 GM ADD-VANTAGE 250 ML IV SCH ×2 (00:16→13:32)
[2020-03-16] MEDS ORDERED: VANCOMYCIN LEVEL IV ONE (00:30)
[2020-03-16 01:05] LABS: BASOPHILS % (AUTO) 0.2 % (0-1); EOSINOPHILS % (AUTO) 0.3 % (0-6); HEMATOCRIT 33.3 % (35.0-45.0); HEMOGLOBIN 10.9 g/dl (12.0-16.0); LYMPHOCYTES # (AUTO) 0.6 X10'3 (1.1-4.8); LYMPHOCYTES % (AUTO) 9.3 % (21-51); MEAN CORPUSCULAR HGB CONC 32.8 g/dL (33.0-36.5); MEAN CORPUSCULAR VOLUME 91.5 FL (78-98); MONOCYTES # (AUTO) 0.1 X10'3 (0-0.9); NEUTROPHILS # (AUTO) 5.7 X10'3 (1.8-7.7); NEUTROPHILS % (AUTO) 89.2 % (42-75); PLATELET COUNT 194 X10'3 (140-440); RED BLOOD COUNT 3.65 X10'6 (4.20-5.60); RED CELL DISTRIBUTION WIDTH 13.1 % (11.5-14.5); WHITE BLOOD COUNT 6.4 X10'3 (4.5-11.0)
[2020-03-16 01:18] LABS: ALBUMIN 2.8 G/DL (3.4-5.0); ANION GAP 12 (8-16); BLOOD UREA NITROGEN 6 MG/DL (7-18); BUN/CREATININE RATIO 10.5 (6.6-38.0); CALCIUM 8.5 MG/DL (8.5-10.1); CHLORIDE 102 MMOL/L (99-107); CREATININE 0.57 MG/DL (0.40-0.90); GLUCOSE 179 MG/DL (70-104); POTASSIUM 3.6 MMOL/L (3.5-5.1); SODIUM 134 MMOL/L (135-145); TOTAL CARBON DIOXIDE 19.7 MMOL/L (24-32); VANCOMYCIN,TROUGH 7.7 UG/ML (6.0-14.0); eGFR > 90 ML/MIN
[2020-03-16] MEDS: morphine 2 MG/ML inj. syringe IV PRN ×2 (03:43→08:40)
[2020-03-16] MEDS: normal saline 1000ml 1,000 ML IV SCH ×2 (04:10→11:21)
[2020-03-16 04:13] VITALS: BP 134/75
[2020-03-16 06:00] VITALS: BP 136/84
--- NOTE | 2020-03-16 06:16 | NUR ---
Problems reprioritized. Patient report given, questions answered & plan of care reviewed with MARGARITO Burrell.
--- NOTE | 2020-03-16 06:50 | NUR ---
Patient in room BA 353. I have received report from Akanksha PIMENTEL and had the opportunity to ask questions and assume patient care.
[2020-03-16] MEDS: enoxaparin 40mg/0.4ml syringe SUBCUT SCH (08:40)
[2020-03-16 11:00] VITALS: BP 133/87
[2020-03-16] MEDS: Dakins solution (1/4 strength) 473ml solution TP SCH (15:25)
[2020-03-16] MEDS: HYDROcodone/acetaminophen 5mg/325mg tablet PO PRN (15:45)
[2020-03-16 18:00] VITALS: BP 135/75
--- NOTE | 2020-03-16 18:24 | NUR ---
patient seen by Dr lane orders given for dakins 1/4 strength wet to dry . dressing done 1530hrs. patient medicated with norco with effect. Up ambulating 600ft following this. Is for DC in am with home wound vac, patient has wound vac in room from home. To follow up with Dr lane and wound clinic. patient aware.
--- NOTE | 2020-03-16 18:37 | NUR ---
Patient in room BA 353. I have received report from TEREZA PIMENTEL and had the opportunity to ask questions and assume patient care.
--- NOTE | 2020-03-16 18:39 | NUR ---
Problems reprioritized. Patient report given, questions answered & plan of care reviewed with Prudence RN.
[2020-03-16] MEDS: metoprolol succinate 25mg (24-HOUR) SR. Tablet PO SCH (21:00)
[2020-03-16] MEDS: amLODIPine 5mg tablet PO SCH (21:01)
[2020-03-16] MEDS: lactobacillus rhamnosus 10,000 MMU CELLS/CAPSULE PO SCH (21:01)
[2020-03-16] MEDS: lisinopril 20mg tablet PO SCH (21:02)
[2020-03-17] VITALS: BP 146/77
[2020-03-17] MEDS: HYDROcodone/acetaminophen 5mg/325mg tablet PO PRN (00:46)
[2020-03-17] MEDS: vancomycin/NS 1 GM ADD-VANTAGE 250 ML IV SCH (00:46)
[2020-03-17] MEDS: normal saline 1000ml 1,000 ML IV SCH ×2 (00:47→10:10)
[2020-03-17] MEDS: morphine 2 MG/ML inj. syringe IV PRN (04:18)
[2020-03-17] MEDS: Dakins solution (1/4 strength) 473ml solution TP SCH ×2 (04:19→10:28)
--- NOTE | 2020-03-17 05:38 | NUR ---
WOUND CARE PERFORMED AT 0510 PER MD ORDER.
--- NOTE | 2020-03-17 06:17 | NUR ---
Problems reprioritized. Patient report given, questions answered & plan of care reviewed with LUPIS RN.
[2020-03-17 06:30] VITALS: BP 117/61
[2020-03-17 06:36] LABS: BASOPHILS % (AUTO) 0.4 % (0-1); EOSINOPHILS # (AUTO) 0.1 X10'3 (0-0.9); EOSINOPHILS % (AUTO) 0.7 % (0-6); HEMATOCRIT 34.2 % (35.0-45.0); HEMOGLOBIN 11.4 g/dl (12.0-16.0); LYMPHOCYTES # (AUTO) 2.6 X10'3 (1.1-4.8); MEAN CORPUSCULAR HEMOGLOBIN 30.1 PG (27.0-31.0); MEAN CORPUSCULAR HGB CONC 33.2 g/dL (33.0-36.5); MEAN CORPUSCULAR VOLUME 90.8 FL (78-98); MEAN PLATELET VOLUME 7.7 FL (7.4-10.4); MONOCYTES # (AUTO) 0.5 X10'3 (0-0.9); MONOCYTES % (AUTO) 7.5 % (2-12); NEUTROPHILS # (AUTO) 3.9 X10'3 (1.8-7.7); NEUTROPHILS % (AUTO) 54.4 % (42-75); PLATELET COUNT 203 X10'3 (140-440); RED BLOOD COUNT 3.77 X10'6 (4.20-5.60); RED CELL DISTRIBUTION WIDTH 13.4 % (11.5-14.5); WHITE BLOOD COUNT 7.1 X10'3 (4.5-11.0)
[2020-03-17 06:44] LABS: ALBUMIN 2.8 G/DL (3.4-5.0); ANION GAP 10 (8-16); BLOOD UREA NITROGEN 7 MG/DL (7-18); BUN/CREATININE RATIO 13.7 (6.6-38.0); CALCIUM 8.2 MG/DL (8.5-10.1); CHLORIDE 105 MMOL/L (99-107); CREATININE 0.51 MG/DL (0.40-0.90); GLUCOSE 101 MG/DL (70-104); POTASSIUM 3.5 MMOL/L (3.5-5.1); SODIUM 139 MMOL/L (135-145); TOTAL CARBON DIOXIDE 24.2 MMOL/L (24-32); eGFR > 90 ML/MIN
--- NOTE | 2020-03-17 06:45 | NUR ---
Patient in room BA 353. I have received report from MARGARITO Mendez and had the opportunity to ask questions and assume patient care.
[2020-03-17] MEDS: lactobacillus rhamnosus 10,000 MMU CELLS/CAPSULE PO SCH (10:27)
[2020-03-17] MEDS: enoxaparin 40mg/0.4ml syringe SUBCUT SCH (10:28)
[2020-03-17] MEDS ORDERED: HYDR-3965 PO (10:54)
[2020-03-17] MEDS ORDERED: SULF1TAB49 PO (10:54)
[2020-03-17 11:00] VITALS: BP 152/90
--- NOTE | 2020-03-17 12:40 | NUR ---
DC inst provided to pt. IV DC'd, tip intact. All belongings sent w/pt. Pt ambulated to front lobby.
[2020-03-17] MEDS ORDERED: VANCOmycin 1250MG/NS 250ml Bag 250 ML IV SCH (13:00)
[2020-03-19] MEDS ORDERED: VANCOMYCIN LEVEL IV ONE (12:30)
== END 2020-03-17 12:40 | disposition home or self-care (01) | DRG 711 ==
LOC: SUR 3N 12:43
PROVIDERS: ADMIT Family Medicine; ATTEND Family Medicine
PROC: 0WBF0ZZ Excision of Abdominal Wall, Open Approach (ICD-10-PCS; principal; 2020-03-15 18:38)
DX: T85.79XA Infection and inflammatory reaction due to other internal prosthetic devices, implants and grafts, initial encounter (principal); Y83.2 Surgical operation with anastomosis, bypass or graft as the cause of abnormal reaction of the patient, or of later complication, without mention of misadventure at the time of the procedure; L02.211 Cutaneous abscess of abdominal wall; Z93.3 Colostomy status; Z90.49 Acquired absence of other specified parts of digestive tract; Z79.899 Other long term (current) drug therapy; I10 Essential (primary) hypertension; B95.62 Methicillin resistant Staphylococcus aureus infection as the cause of diseases classified elsewhere; Z20.822 Contact with and (suspected) exposure to COVID-19
CPT/HCPCS: 36415; 71045; 74176; 80048; 80202; 82948; 85025; 85610; 87081; 87635; 93005; A4618; A6253; A6446; A6449; A7000; G0378; J0330; J1100; J1650; J2001; J2250; J2270; J2405; J2704; J3010; J3370; J7030; Q9963

== ENCOUNTER 2021-12-31 08:22 | Inpatient (IN) | payer MEDICAID ==
[~2021-12-31] VITALS: Ht 170.2 cm; Wt 81.8 kg
[~2021-12-31 08:22] MED LIST changes: -CALC-1200 PO; -LIDOcaine 2% 5ml jelly ONE
[2021-12-31 11:11] LABS: BASOPHILS % (AUTO) 0.5 % (0-1); EOSINOPHILS % (AUTO) 0.4 % (0-6); HEMATOCRIT 27.5 % (35.0-45.0); HEMOGLOBIN 9.5 g/dl (12.0-16.0); LYMPHOCYTES # (AUTO) 1.8 X10'3 (1.1-4.8); LYMPHOCYTES % (AUTO) 21.9 % (21-51); MEAN CORPUSCULAR HEMOGLOBIN 32.6 PG (27.0-31.0); MEAN CORPUSCULAR HGB CONC 34.3 g/dL (33.0-36.5); MEAN CORPUSCULAR VOLUME 94.9 FL (78-98); MEAN PLATELET VOLUME 8.3 FL (7.4-10.4); MONOCYTES # (AUTO) 0.6 X10'3 (0-0.9); MONOCYTES % (AUTO) 7.7 % (2-12); NEUTROPHILS # (AUTO) 5.7 X10'3 (1.8-7.7); NEUTROPHILS % (AUTO) 69.5 % (42-75); PLATELET COUNT 105 X10'3 (140-440); RED CELL DISTRIBUTION WIDTH 14.3 % (11.5-14.5); WHITE BLOOD COUNT 8.2 X10'3 (4.5-11.0)
[2021-12-31 11:38] LABS: ALANINE AMINOTRANSFERASE 15 U/L (12-78); ALBUMIN 2.3 G/DL (3.4-5.0); ALBUMIN/GLOBULIN RATIO 0.4 (1.1-1.5); ALKALINE PHOSPHATASE 179 IU/L (46-116); ANION GAP 10 (8-16); ASPARTATE AMINO TRANSFERASE 54 U/L (10-37); BILIRUBIN,TOTAL 2.2 MG/DL (0.1-1.0); BLOOD UREA NITROGEN 8 MG/DL (7-18); BUN/CREATININE RATIO 14.8 (6.6-38.0); CALCIUM 8.8 MG/DL (8.5-10.1); CHLORIDE 95 MMOL/L (99-107); CREATININE 0.54 MG/DL (0.40-0.90); GLUCOSE 107 MG/DL (70-104); LIPASE 59 U/L (73-393); POTASSIUM 3.2 MMOL/L (3.5-5.1); SODIUM 133 MMOL/L (135-145); eGFR > 90 ML/MIN
[2021-12-31] MEDS ORDERED: ondansetron 4mg rapidly disintigrating tab PO PRN (15:10)
[2021-12-31] MEDS ORDERED: acetaminophen 325mg tablet PO PRN (15:10)
[2021-12-31] MEDS ORDERED: potassium CL 10mEq/100ml bag 100 ML IV PRN (15:10)
[2021-12-31] MEDS ORDERED: bisacodyl 10mg suppository rectal RC PRN (15:10)
[2021-12-31] MEDS ORDERED: potassium Cl 20 mEq SR tablet PO PRN ×2 (15:10)
[2021-12-31] MEDS ORDERED: magnesium Cl slow-release 64mg tablet PO PRN (15:10)
[2021-12-31] MEDS: normal saline 1000ml 1,000 ML IV SCH (15:10)
[2021-12-31] MEDS ORDERED: magnesium 4gm in 100ml NS 100 ML IV PRN (15:10)
[2021-12-31] MEDS ORDERED: ondansetron/PF 4mg/2ml inj IV PRN (15:10)
[2021-12-31] MEDS ORDERED: mag hydrox/Alum hydrox/simeth 30ml oral suspension PO PRN (15:10)
[2021-12-31] MEDS ORDERED: ACET-2778 PO (15:49)
[2021-12-31] MEDS ORDERED: IBUP-49 PO (15:49)
[2021-12-31 15:55] LABS: PHOSPHORUS 2.3 MG/DL (2.3-4.5)
[2021-12-31] MEDS ORDERED: GABA-530 PO (16:02)
[2021-12-31] MEDS ORDERED: METH-797 PO (16:02)
[2021-12-31] MEDS ORDERED: DOXY100T2 PO (16:02)
[2021-12-31] MEDS ORDERED: HYDR25TA5 PO (16:02)
[2021-12-31] MEDS ORDERED: AMLO1CAP10 PO (16:03)
--- NOTE | 2021-12-31 17:31 | NUR ---
mri questionair sheet faxed to mri.
[2021-12-31] MEDS: K and/or MAG REPLACEMENT MC SCH (20:00)
[2021-12-31 20:13] LABS: % IRON SATURATION 101 % (11-46); IRON 158 UG/DL (49-151); TOTAL IRON BINDING CAPACITY 156 UG/DL (259-388)
[2021-12-31] MEDS: heparin, porcine 5000 units/ml vial SQ SCH (20:22)
[2021-12-31] MEDS: docusate sod 100mg capsule PO SCH (20:22)
[2021-12-31] MEDS: cyclobenzaprine 10mg tablet PO SCH (20:23)
[2021-12-31] MEDS: metoprolol succinate 25mg (24-HOUR) SR. Tablet PO SCH (20:23)
[2022-01-01] MEDS: normal saline 1000ml 1,000 ML IV SCH ×3 (01:08→17:11)
[2022-01-01 05:30] VITALS: BP 160/52
[2022-01-01 06:49] LABS: BASOPHILS % (AUTO) 0.4 % (0-1); EOSINOPHILS # (AUTO) 0.1 X10'3 (0-0.9); EOSINOPHILS % (AUTO) 0.9 % (0-6); HEMATOCRIT 27.6 % (35.0-45.0); HEMOGLOBIN 9.3 g/dl (12.0-16.0); LYMPHOCYTES # (AUTO) 2.6 X10'3 (1.1-4.8); LYMPHOCYTES % (AUTO) 25.9 % (21-51); MEAN CORPUSCULAR HGB CONC 33.6 g/dL (33.0-36.5); MEAN CORPUSCULAR VOLUME 95.2 FL (78-98); MEAN PLATELET VOLUME 8.3 FL (7.4-10.4); MONOCYTES % (AUTO) 10.2 % (2-12); NEUTROPHILS # (AUTO) 6.3 X10'3 (1.8-7.7); NEUTROPHILS % (AUTO) 62.6 % (42-75); PLATELET COUNT 120 X10'3 (140-440); RED CELL DISTRIBUTION WIDTH 14.4 % (11.5-14.5)
[2022-01-01 07:00] VITALS: BP 150/82
[2022-01-01 07:00] LABS: CLARITY,URINE CLOUDY (Clear); COLOR,URINE YELLOW (Yellow); GLUCOSE, URINE 100 mg/dl (Neg); KETONES,URINE NEGATIVE (Neg); LEUKOCYTE ESTERASE ,URINE LARGE (Neg); NITRITES, URINE NEGATIVE (Neg); OCCULT BLOOD,URINE NEGATIVE (Neg); PH,URINE 7.5 (4.8-8.0); PROTEIN,URINE TRACE mg/dl (Neg); UROBILINOGEN,URINE >=8.0 E.U/dL (0.2-1.0)
[2022-01-01 07:09] LABS: UA COLLECTION TYPE VOIDED
[2022-01-01 07:11] LABS: WBC,URINE TNTC /HPF (0-4)
[2022-01-01 07:12] LABS: RBC,URINE NONE SEEN /HPF (0-2)
[2022-01-01 07:13] LABS: BACTERIA,URINE 3+ /HPF (Neg); MUCUS STRANDS MODERATE /LPF (Neg); SQUAMOUS EPITHELIAL CELL,UR MODERATE /LPF (FEW)
[2022-01-01 07:15] LABS: AMMONIUM BIURATE CRYSTALS 1+ /HPF (NEGATIVE)
[2022-01-01 07:16] LABS: AMORPHOUS PHOSPHATES 1+; CELLULAR CAST 0-4 /LPF (NEGATIVE); RENAL CELLS, URINE FEW /HPF
[2022-01-01] MEDS ORDERED: dexamethasone 1mg tablet PO STA (07:27)
[2022-01-01 07:33] LABS: ALANINE AMINOTRANSFERASE 15 U/L (12-78); ALBUMIN/GLOBULIN RATIO 0.4 (1.1-1.5); ALKALINE PHOSPHATASE 178 IU/L (46-116); ANION GAP 10 (8-16); BILIRUBIN,TOTAL 1.9 MG/DL (0.1-1.0); BLOOD UREA NITROGEN 8 MG/DL (7-18); CALCIUM 8.3 MG/DL (8.5-10.1); CHLORIDE 98 MMOL/L (99-107); GLUCOSE 88 MG/DL (70-104); MAGNESIUM 1.5 MG/DL (1.5-2.4); SODIUM 129 MMOL/L (135-145); TOTAL CARBON DIOXIDE 21.3 MMOL/L (24-32); TOTAL PROTEIN 7.4 G/DL (6.4-8.2); eGFR > 90 ML/MIN
[2022-01-01 07:34] LABS: ASPARTATE AMINO TRANSFERASE 64 U/L (10-37); PHOSPHORUS 2.9 MG/DL (2.3-4.5); POTASSIUM 4.3 MMOL/L (3.5-5.1)
[2022-01-01] MEDS ORDERED: dexamethasone 4mg tablet PO STA (07:34)
[2022-01-01] MEDS: K and/or MAG REPLACEMENT MC SCH ×2 (08:00→19:02)
[2022-01-01] MEDS: docusate sod 100mg capsule PO SCH ×2 (08:22→22:03)
[2022-01-01] MEDS: cyclobenzaprine 10mg tablet PO SCH ×3 (08:22→22:04)
[2022-01-01] MEDS: lisinopril 20mg tablet PO SCH (08:22)
[2022-01-01] MEDS: heparin, porcine 5000 units/ml vial SQ SCH (08:23)
[2022-01-01] MEDS: amLODIPine 5mg tablet PO SCH (08:23)
[2022-01-01] MEDS: magnesium hydroxide 30ml (MOM) UD suspension PO PRN (08:38)
[2022-01-01 11:00] VITALS: BP 135/86
[2022-01-01 11:59] LABS: OCCULT BLOOD STOOL NEGATIVE (Neg)
[2022-01-01] MEDS ORDERED: CefTRIAXone/D5W-Rocephin 1gm 50 ML IV ONE (16:50)
--- NOTE | 2022-01-01 17:43 | NUR ---
PAGER ID: [phone] MESSAGE: Radhika Surg [id number] Re: Pete 352 Left leg HEATHER .78 Right leg HEATHER .86
[2022-01-01 18:00] VITALS: BP 177/87
--- NOTE | 2022-01-01 18:52 | NUR ---
Problems reprioritized. Patient report given, questions answered & plan of care reviewed with Prudence RN.
--- NOTE | 2022-01-01 18:55 | NUR ---
Patient in room BA 352. I have received report from ILEANA PIMENTEL and had the opportunity to ask questions and assume patient care.
--- NOTE | 2022-01-01 21:00 | NUR ---
PATIENT REFUSED 2200 VS
[2022-01-01] MEDS: metoprolol succinate 25mg (24-HOUR) SR. Tablet PO SCH (22:04)
[2022-01-02] VITALS (9 sets, daily range): BP systolic 100–164; BP diastolic 64–89
--- NOTE | 2022-01-02 06:33 | NUR ---
Problems reprioritized. Patient report given, questions answered & plan of care reviewed with CON PIMENTEL.
--- NOTE | 2022-01-02 06:34 | NUR ---
Patient in room BA 352. I have received report from Vanessa PIMENTEL and had the opportunity to ask questions and assume patient care. Addendum: 01/02/22 at 1836 by Ida Blancas RN Problems reprioritized. Patient report given, questions answered & plan of care reviewed with Vanessa PIMENTEL.
[2022-01-02 06:39] LABS: BASOPHILS % (AUTO) 0.2 % (0-1); EOSINOPHILS % (AUTO) 0.1 % (0-6); HEMATOCRIT 27.7 % (35.0-45.0); LYMPHOCYTES # (AUTO) 2.5 X10'3 (1.1-4.8); LYMPHOCYTES % (AUTO) 19.9 % (21-51); MEAN CORPUSCULAR HEMOGLOBIN 31.6 PG (27.0-31.0); MEAN CORPUSCULAR HGB CONC 32.6 g/dL (33.0-36.5); MEAN CORPUSCULAR VOLUME 96.9 FL (78-98); MEAN PLATELET VOLUME 8.5 FL (7.4-10.4); MONOCYTES # (AUTO) 1.4 X10'3 (0-0.9); MONOCYTES % (AUTO) 11.4 % (2-12); NEUTROPHILS # (AUTO) 8.5 X10'3 (1.8-7.7); NEUTROPHILS % (AUTO) 68.4 % (42-75); PLATELET COUNT 127 X10'3 (140-440); RED BLOOD COUNT 2.86 X10'6 (4.20-5.60); RED CELL DISTRIBUTION WIDTH 14.4 % (11.5-14.5); WHITE BLOOD COUNT 12.4 X10'3 (4.5-11.0)
[2022-01-02 07:00] LABS: ALANINE AMINOTRANSFERASE 20 U/L (12-78); ALBUMIN 2.1 G/DL (3.4-5.0); ALBUMIN/GLOBULIN RATIO 0.4 (1.1-1.5); ALKALINE PHOSPHATASE 190 IU/L (46-116); ANION GAP 10 (8-16); ASPARTATE AMINO TRANSFERASE 64 U/L (10-37); BILIRUBIN,TOTAL 1.1 MG/DL (0.1-1.0); BLOOD UREA NITROGEN 8 MG/DL (7-18); CALCIUM 8.3 MG/DL (8.5-10.1); CHLORIDE 101 MMOL/L (99-107); GLUCOSE 117 MG/DL (70-104); MAGNESIUM 1.6 MG/DL (1.5-2.4); PHOSPHORUS 2.5 MG/DL (2.3-4.5); POTASSIUM 3.8 MMOL/L (3.5-5.1); SODIUM 130 MMOL/L (135-145); TOTAL CARBON DIOXIDE 18.8 MMOL/L (24-32); TOTAL PROTEIN 7.4 G/DL (6.4-8.2); eGFR > 90 ML/MIN
[2022-01-02] MEDS: normal saline 1000ml 1,000 ML IV SCH (07:10)
[2022-01-02 07:18] LABS: PLATELET ESTIMATE DECREASED; TOTAL CELLS COUNTED 100
[2022-01-02] MEDS: K and/or MAG REPLACEMENT MC SCH ×2 (08:00→19:38)
[2022-01-02] MEDS: cyclobenzaprine 10mg tablet PO SCH ×3 (08:30→20:33)
[2022-01-02] MEDS: CefTRIAXone/D5W-Rocephin 1gm 50 ML IV SCH (08:30)
[2022-01-02] MEDS: amLODIPine 5mg tablet PO SCH (08:30)
[2022-01-02] MEDS: lisinopril 20mg tablet PO SCH (08:30)
[2022-01-02] MEDS: docusate sod 100mg capsule PO SCH ×2 (08:30→20:33)
[2022-01-02 08:45] LABS: GAMMA GLUTAMLY TRANSPEPTIDASE 177 IU/L (0-60); HBSAG SCREEN Negative (Negative); HEP A AB, IGM Negative (Negative)
[2022-01-02 11:45] LABS: APPEARANCE,CSF HAZY
[2022-01-02 11:46] LABS: CSF VOLUME 6.5 ML; TUBE# COUNTED 1
[2022-01-02 11:50] LABS: CSF RBC 2150 /CU MM (0); CSF WBC CT 20 /CU MM (0-5)
[2022-01-02 11:52] LABS: CSF SUPERNATANT COLOR COLORLESS
[2022-01-02 11:53] LABS: APPEARANCE,CSF CLEAR; CSF RBC 118 /CU MM (0); CSF SUPERNATANT COLOR COLORLESS; CSF VOLUME 6.5 ML; CSF WBC CT 1 /CU MM (0-5); TUBE# COUNTED 4
[2022-01-02 11:54] LABS: LYMPHOCYTES,CSF 22 % (40-80); MONOCYTES,CSF 10 % (15-45); NEUTRO,CSF 68 % (0-6)
[2022-01-02 14:52] LABS: GLUCOSE,CSF 64 MG/DL (40-75)
--- NOTE | 2022-01-02 19:09 | NUR ---
Patient in room BA 352. I have received report from CON PIMENTEL and had the opportunity to ask questions and assume patient care.
[2022-01-02] MEDS: metoprolol succinate 25mg (24-HOUR) SR. Tablet PO SCH (20:35)
[2022-01-02] MEDS: magnesium hydroxide 30ml (MOM) UD suspension PO PRN (22:40)
[2022-01-02] MEDS: acetaminophen 325mg tablet PO PRN (22:40)
[2022-01-03 06:00] VITALS: BP 124/74
--- NOTE | 2022-01-03 06:10 | NUR ---
Problems reprioritized. Patient report given, questions answered & plan of care reviewed with CON PIMENTEL.
--- NOTE | 2022-01-03 06:12 | NUR ---
Patient in room BA 352. I have received report from Vanessa PIMENTEL and had the opportunity to ask questions and assume patient care.
[2022-01-03 06:45] LABS: BASOPHILS # (AUTO) 0.1 X10'3 (0-0.2); BASOPHILS % (AUTO) 0.4 % (0-1); EOSINOPHILS # (AUTO) 0.1 X10'3 (0-0.9); EOSINOPHILS % (AUTO) 0.7 % (0-6); HEMATOCRIT 26.8 % (35.0-45.0); HEMOGLOBIN 8.9 g/dl (12.0-16.0); LYMPHOCYTES # (AUTO) 4.2 X10'3 (1.1-4.8); LYMPHOCYTES % (AUTO) 30.6 % (21-51); MEAN CORPUSCULAR HEMOGLOBIN 31.9 PG (27.0-31.0); MEAN CORPUSCULAR HGB CONC 33.2 g/dL (33.0-36.5); MEAN CORPUSCULAR VOLUME 96.1 FL (78-98); MEAN PLATELET VOLUME 8.2 FL (7.4-10.4); MONOCYTES # (AUTO) 1.5 X10'3 (0-0.9); NEUTROPHILS # (AUTO) 7.8 X10'3 (1.8-7.7); NEUTROPHILS % (AUTO) 57.3 % (42-75); PLATELET COUNT 128 X10'3 (140-440); RED BLOOD COUNT 2.79 X10'6 (4.20-5.60); RED CELL DISTRIBUTION WIDTH 14.3 % (11.5-14.5); WHITE BLOOD COUNT 13.6 X10'3 (4.5-11.0)
[2022-01-03 07:08] LABS: ALANINE AMINOTRANSFERASE 32 U/L (12-78); ALBUMIN 2.2 G/DL (3.4-5.0); ALBUMIN/GLOBULIN RATIO 0.4 (1.1-1.5); ALKALINE PHOSPHATASE 194 IU/L (46-116); ANION GAP 10 (8-16); ASPARTATE AMINO TRANSFERASE 86 U/L (10-37); BILIRUBIN,TOTAL 1.1 MG/DL (0.1-1.0); BLOOD UREA NITROGEN 12 MG/DL (7-18); BUN/CREATININE RATIO 19.4 (6.6-38.0); CALCIUM 8.7 MG/DL (8.5-10.1); CHLORIDE 102 MMOL/L (99-107); CREATININE 0.62 MG/DL (0.40-0.90); GLUCOSE 92 MG/DL (70-104); MAGNESIUM 1.6 MG/DL (1.5-2.4); PHOSPHORUS 3.1 MG/DL (2.3-4.5); POTASSIUM 3.6 MMOL/L (3.5-5.1); SODIUM 133 MMOL/L (135-145); TOTAL CARBON DIOXIDE 21.5 MMOL/L (24-32); TOTAL PROTEIN 7.1 G/DL (6.4-8.2); eGFR > 90 ML/MIN
[2022-01-03] MEDS: amLODIPine 5mg tablet PO SCH (07:50)
[2022-01-03] MEDS: docusate sod 100mg capsule PO SCH ×2 (07:50→20:53)
[2022-01-03] MEDS: CefTRIAXone/D5W-Rocephin 1gm 50 ML IV SCH (07:51)
[2022-01-03] MEDS: K and/or MAG REPLACEMENT MC SCH ×2 (07:51→20:58)
[2022-01-03] MEDS: cyclobenzaprine 10mg tablet PO SCH ×3 (07:51→20:54)
[2022-01-03] MEDS: magnesium hydroxide 30ml (MOM) UD suspension PO PRN (07:51)
[2022-01-03 07:52] LABS: TOTAL CELLS COUNTED 100
[2022-01-03 07:53] LABS: LARGE PLATELETS FEW; PLATELET ESTIMATE DECREASED
[2022-01-03] MEDS: lisinopril 20mg tablet PO SCH (08:00)
[2022-01-03 10:47] VITALS: BP 80/52
[2022-01-03] MEDS ORDERED: folic acid 1mg/0.2ml inj IV SCH (16:35)
[2022-01-03] MEDS ORDERED: thiamine 100mg/ml 2ml inj. IV ONE (16:35)
[2022-01-03] MEDS ORDERED: PERFLUTREN PROTEIN-A MICROSPHR (Optison) 0.22 MG/ML 3ML VIAL IV ONE (16:40)
[2022-01-03] MEDS ORDERED: GADOTERATE MEGLUMINE 7.5 MMOL/15 ML VIAL IV ONE (17:31)
[2022-01-03 18:00] VITALS: BP 109/66
--- NOTE | 2022-01-03 18:32 | NUR ---
Problems reprioritized. Patient report given, questions answered & plan of care reviewed with Prudence RN.
--- NOTE | 2022-01-03 18:46 | NUR ---
Patient in room BA 352. I have received report from CON PIMENTEL and had the opportunity to ask questions and assume patient care.
[2022-01-03] MEDS: metoprolol succinate 25mg (24-HOUR) SR. Tablet PO SCH (20:54)
[2022-01-03 22:00] VITALS: BP 106/63
[2022-01-03] MEDS: thiamine 100mg tablet PO SCH (22:00)
--- NOTE | 2022-01-03 23:48 | NUR ---
MEDICATION NOT ADMINISTERED ON DAY SHIFT
[2022-01-04 06:00] VITALS: BP 94/58
--- NOTE | 2022-01-04 06:13 | NUR ---
Problems reprioritized. Patient report given, questions answered & plan of care reviewed with ILEANA PIMENTEL.
--- NOTE | 2022-01-04 06:13 | NUR ---
Problems reprioritized. Patient report given, questions answered & plan of care reviewed with ILEANA PIMENTEL.
[2022-01-04 06:52] LABS: BASOPHILS # (AUTO) 0.1 X10'3 (0-0.2); BASOPHILS % (AUTO) 0.4 % (0-1); EOSINOPHILS # (AUTO) 0.1 X10'3 (0-0.9); EOSINOPHILS % (AUTO) 0.9 % (0-6); HEMATOCRIT 26.5 % (35.0-45.0); HEMOGLOBIN 8.9 g/dl (12.0-16.0); LYMPHOCYTES # (AUTO) 4.2 X10'3 (1.1-4.8); LYMPHOCYTES % (AUTO) 27.1 % (21-51); MEAN CORPUSCULAR HEMOGLOBIN 32.1 PG (27.0-31.0); MEAN CORPUSCULAR HGB CONC 33.7 g/dL (33.0-36.5); MEAN CORPUSCULAR VOLUME 95.4 FL (78-98); MEAN PLATELET VOLUME 8.3 FL (7.4-10.4); MONOCYTES # (AUTO) 1.6 X10'3 (0-0.9); MONOCYTES % (AUTO) 10.2 % (2-12); NEUTROPHILS # (AUTO) 9.5 X10'3 (1.8-7.7); NEUTROPHILS % (AUTO) 61.4 % (42-75); PLATELET COUNT 122 X10'3 (140-440); RED BLOOD COUNT 2.78 X10'6 (4.20-5.60); RED CELL DISTRIBUTION WIDTH 14.6 % (11.5-14.5); WHITE BLOOD COUNT 15.4 X10'3 (4.5-11.0)
[2022-01-04 06:57] LABS: ALANINE AMINOTRANSFERASE 31 U/L (12-78); ALBUMIN 2.2 G/DL (3.4-5.0); ALBUMIN/GLOBULIN RATIO 0.5 (1.1-1.5); ALKALINE PHOSPHATASE 205 IU/L (46-116); ANION GAP 9 (8-16); ASPARTATE AMINO TRANSFERASE 77 U/L (10-37); BILIRUBIN,TOTAL 1.1 MG/DL (0.1-1.0); BLOOD UREA NITROGEN 8 MG/DL (7-18); BUN/CREATININE RATIO 14.5 (6.6-38.0); CALCIUM 8.1 MG/DL (8.5-10.1); CHLORIDE 101 MMOL/L (99-107); CREATININE 0.55 MG/DL (0.40-0.90); GLUCOSE 93 MG/DL (70-104); MAGNESIUM 1.5 MG/DL (1.5-2.4); SODIUM 131 MMOL/L (135-145); TOTAL CARBON DIOXIDE 20.9 MMOL/L (24-32); eGFR > 90 ML/MIN
--- NOTE | 2022-01-04 07:30 | NUR ---
Patient in room BA 352. I have received report from Vanessa PIMENTEL and had the opportunity to ask questions and assume patient care.
[2022-01-04] MEDS: K and/or MAG REPLACEMENT MC SCH ×2 (08:00→20:00)
[2022-01-04] MEDS: lisinopril 20mg tablet PO SCH (08:00)
[2022-01-04] MEDS: amLODIPine 5mg tablet PO SCH (08:00)
[2022-01-04] MEDS: docusate sod 100mg capsule PO SCH ×2 (09:33→21:41)
[2022-01-04] MEDS: cyclobenzaprine 10mg tablet PO SCH ×3 (09:33→21:41)
[2022-01-04] MEDS: multivitamins, therapeutics tablet PO SCH (09:33)
[2022-01-04] MEDS: thiamine 100mg tablet PO SCH ×2 (09:33→21:42)
[2022-01-04 10:00] VITALS: BP 115/70
--- NOTE | 2022-01-04 11:12 | NUR ---
PRESSURE ULCER EDUCATION: DEFINITION: A pressure ulcer is an area of skin that breaks down when you stay in one position too long. The constant pressure against the skin reduces the blood flow to that area and the affected tissue dies. CAUSES: "Being bedridden or in a wheelchair "Fragile skin "Having a chronic condition, such as diabetes or vascular disease "Inability to move certain parts of your body without assistance "Older age "Incontinence of urine or stool SYMPTOMS: "A reddened area that DOES NOT turn white when pressed on - this can be the beginning of a pressure ulcer "A blister, deep sore or a crater - these can be advanced pressure ulcers FIRST AID: "Relieve the pressure on this area "Keep the area clean and dry "Call your primary doctor if you see any of the above symptoms "DO NOT massage the area "DO NOT use a donut shaped or ring shaped pillow- these actually interfere with the blood flow and cause complications PREVENTION: "Check for pressure ulcers everyday "Change position at least every two hours to relieve pressure "Use items that help relieve pressure- pillows, sheepskin, foam padding, and powders. "Keep skin clean and dry "Eat healthy well balanced meals "Exercise daily IF YOU SEE ANY OF THESE SYMPTOMS WHILE IN THE HOSPITAL - TELL YOUR NURSE IMMEDIATELY. IF YOU SEE ANY OF THESE SYMPTOMS WHILE AT HOME OR HAVE ANY QUESTIONS OR CONCERNS ABOUT PRESSURE ULCERS - CALL YOUR PRIMARY DOCTOR IMMEDIATELY. Addendum: 01/04/22 at 1112 by Shaista See RN Amended: Links added.
--- NOTE | 2022-01-04 11:23 | NUR ---
Dr mccormick aware held patient Norvasc and Lisinipril this am due to BP 97/59 hr 68
--- NOTE | 2022-01-04 18:31 | NUR ---
Problems reprioritized. Patient report given, questions answered & plan of care reviewed with Loly PIMENTEL.
--- NOTE | 2022-01-04 18:45 | NUR ---
Patient in room BA 352. I have received report from MARGARITO TEJEDA and had the opportunity to ask questions and assume patient care. Addendum: 01/04/22 at 1846 by Lilli Wells RN Amended: Links added.
[2022-01-04 19:30] VITALS: BP 101/60
[2022-01-04] MEDS: DOXYCYCLINE 100MG CAPSULE PO SCH (21:43)
[2022-01-04] MEDS: metoprolol succinate 25mg (24-HOUR) SR. Tablet PO SCH (21:47)
[2022-01-05 00:05] VITALS: BP 113/62
--- NOTE | 2022-01-05 04:43 | NUR ---
[facility] in [place] called to see about placing the pt with them. They are aware we are still awaiting the Aliza Narayanan pathology report. report given to them they will let us know later if they have a tele bed for her.
[2022-01-05 06:00] VITALS: BP 101/64
--- NOTE | 2022-01-05 06:12 | NUR ---
Problems reprioritized. Patient report given, questions answered & plan of care reviewed with MARGARITO ANDUJAR.
[2022-01-05 06:28] LABS: BASOPHILS % (AUTO) 0.2 % (0-1); EOSINOPHILS # (AUTO) 0.2 X10'3 (0-0.9); HEMATOCRIT 25.9 % (35.0-45.0); HEMOGLOBIN 8.7 g/dl (12.0-16.0); LYMPHOCYTES % (AUTO) 22.8 % (21-51); MEAN CORPUSCULAR HEMOGLOBIN 32.3 PG (27.0-31.0); MEAN CORPUSCULAR HGB CONC 33.5 g/dL (33.0-36.5); MEAN CORPUSCULAR VOLUME 96.4 FL (78-98); MEAN PLATELET VOLUME 8.3 FL (7.4-10.4); MONOCYTES # (AUTO) 1.5 X10'3 (0-0.9); MONOCYTES % (AUTO) 8.9 % (2-12); NEUTROPHILS # (AUTO) 11.6 X10'3 (1.8-7.7); NEUTROPHILS % (AUTO) 67.1 % (42-75); PLATELET COUNT 103 X10'3 (140-440); RED BLOOD COUNT 2.68 X10'6 (4.20-5.60); RED CELL DISTRIBUTION WIDTH 14.7 % (11.5-14.5); WHITE BLOOD COUNT 17.3 X10'3 (4.5-11.0)
--- NOTE | 2022-01-05 06:38 | NUR ---
Patient in room BA 352. I have received report from Loly PIMENTEL and had the opportunity to ask questions and assume patient care.
[2022-01-05 06:48] LABS: ALANINE AMINOTRANSFERASE 32 U/L (12-78); ALBUMIN 2.1 G/DL (3.4-5.0); ALBUMIN/GLOBULIN RATIO 0.4 (1.1-1.5); ALKALINE PHOSPHATASE 196 IU/L (46-116); ANION GAP 10 (8-16); ASPARTATE AMINO TRANSFERASE 68 U/L (10-37); BILIRUBIN,TOTAL 1.2 MG/DL (0.1-1.0); BLOOD UREA NITROGEN 7 MG/DL (7-18); BUN/CREATININE RATIO 15.9 (6.6-38.0); CALCIUM 8.2 MG/DL (8.5-10.1); CHLORIDE 102 MMOL/L (99-107); CREATININE 0.44 MG/DL (0.40-0.90); GLUCOSE 85 MG/DL (70-104); PHOSPHORUS 3.5 MG/DL (2.3-4.5); POTASSIUM 3.6 MMOL/L (3.5-5.1); SODIUM 133 MMOL/L (135-145); TOTAL CARBON DIOXIDE 20.8 MMOL/L (24-32); eGFR > 90 ML/MIN
[2022-01-05] MEDS: K and/or MAG REPLACEMENT MC SCH ×2 (08:00→20:00)
[2022-01-05] MEDS: docusate sod 100mg capsule PO SCH ×2 (09:10→21:06)
[2022-01-05] MEDS: DOXYCYCLINE 100MG CAPSULE PO SCH ×2 (09:10→21:06)
[2022-01-05] MEDS: cyclobenzaprine 10mg tablet PO SCH ×3 (09:10→21:06)
[2022-01-05] MEDS: thiamine 100mg tablet PO SCH ×2 (09:10→21:06)
[2022-01-05] MEDS: amLODIPine 5mg tablet PO SCH (09:11)
[2022-01-05] MEDS: multivitamins, therapeutics tablet PO SCH (09:11)
[2022-01-05] MEDS: lisinopril 20mg tablet PO SCH (09:12)
[2022-01-05 10:00] VITALS: BP 95/60
[2022-01-05 13:01] LABS: TOTAL PROTEIN,CSF 100 MG/DL (30-60)
--- NOTE | 2022-01-05 14:00 | NUR ---
Student Medication Administration: For this medication-pass time frame, all medication were reviewed, dispensed, administered and documented per hospital policy by crystal caro student nurse with tanner cheney RN instructor.
--- NOTE | 2022-01-05 16:44 | NUR ---
Initial: Pt admit DX profound weakness possible AIDP/GBS, hyponatremia, PVD, Fe-deficiency anemia, transaminitis, and hypokalemia per EMR. PO ~63% avg regular diet meeting estimated needs. Noted LBM 12/25 receiving routine colace w/ PRN MoM given 01/03 per EMR. BRYANT fernández/w RN who reports pt claims LBM last week though date unknown. BRYANT fernández/oneal RN regarding changing MoM to routine if MD agreeable. Power pudding to be sent WS to assist bowel regularity; dietary notified. Will monitor for further nutrition intervention needs this admit. Rec: 1. continue regular diet 2. prune juice WS once given reported 10 days constipation 3. continue routine thiamine/MVI for prior etoh hx per MD 4. routine bowel care 5. scaled wt this admit; subsequent weekly wts Addendum: 01/05/22 at [address] Amended: Links added.
--- NOTE | 2022-01-05 17:15 | NUR ---
PAGER ID: [phone] MESSAGE: Crista Freeman #[phone] Pt has M.O.M prn, Estimated LBM 12/25. Can we change MOM to routine give? She already has Colace BID. Thank you. Ida George [phone]
--- NOTE | 2022-01-05 18:37 | NUR ---
Problems reprioritized. Patient report given, questions answered & plan of care reviewed with EMETERIO PIMENTEL.
--- NOTE | 2022-01-05 18:42 | NUR ---
Patient in room BA 352. I have received report from MARGARITO ANDUJAR and had the opportunity to ask questions and assume patient care. Addendum: 01/05/22 at 1843 by Lilli Wells RN Amended: Links added.
[2022-01-05 19:30] VITALS: BP 111/73
[2022-01-05] MEDS: metoprolol succinate 25mg (24-HOUR) SR. Tablet PO SCH (21:06)
[2022-01-05] MEDS: polyethylene glycol 3350 17gm powd pack PO SCH (21:07)
[2022-01-05 22:24] VITALS: BP 103/83
--- NOTE | 2022-01-06 06:28 | NUR ---
Problems reprioritized. Patient report given, questions answered & plan of care reviewed with MARGARITO BUTT. Addendum: 01/06/22 at 0628 by Lilli Wells RN Amended: Links added.
[2022-01-06 06:52] VITALS: BP 105/70
[2022-01-06] MEDS: K and/or MAG REPLACEMENT MC SCH ×2 (08:00→20:00)
[2022-01-06] MEDS: thiamine 100mg tablet PO SCH ×2 (09:33→21:14)
[2022-01-06] MEDS: amLODIPine 5mg tablet PO SCH (09:34)
[2022-01-06] MEDS: docusate sod 100mg capsule PO SCH ×2 (09:34→21:10)
[2022-01-06] MEDS: cyclobenzaprine 10mg tablet PO SCH ×3 (09:34→21:10)
[2022-01-06] MEDS: DOXYCYCLINE 100MG CAPSULE PO SCH ×2 (09:35→21:10)
[2022-01-06] MEDS: lisinopril 20mg tablet PO SCH (09:35)
[2022-01-06] MEDS: multivitamins, therapeutics tablet PO SCH (09:36)
--- NOTE | 2022-01-06 10:04 | NUR ---
PAGER ID: [phone] MESSAGE: Tj Surg [id number] Patient received her BP meds this morning and second round vital are lower 82/46 and we are doing a manual BP at this time. Thanks Tj. Addendum: 01/06/22 at 1008 by Kevin Mckee RN incorrect MD notified with this number.
--- NOTE | 2022-01-06 10:08 | NUR ---
PAGER ID: [phone] MESSAGE: Tj surg Re: 352 Pete Patient was given BP medications this morning and BP is now 86/44. Manual pressure at this time is 90/58 on left arm. Thanks Tj.
[2022-01-06 10:30] LABS: BASOPHILS % (AUTO) 0.3 % (0-1); EOSINOPHILS # (AUTO) 0.2 X10'3 (0-0.9); EOSINOPHILS % (AUTO) 1.4 % (0-6); HEMATOCRIT 27.2 % (35.0-45.0); HEMOGLOBIN 9.1 g/dl (12.0-16.0); LYMPHOCYTES # (AUTO) 3.6 X10'3 (1.1-4.8); LYMPHOCYTES % (AUTO) 20.6 % (21-51); MEAN CORPUSCULAR HEMOGLOBIN 32.3 PG (27.0-31.0); MEAN CORPUSCULAR HGB CONC 33.4 g/dL (33.0-36.5); MEAN CORPUSCULAR VOLUME 96.6 FL (78-98); MEAN PLATELET VOLUME 8.4 FL (7.4-10.4); MONOCYTES # (AUTO) 1.3 X10'3 (0-0.9); MONOCYTES % (AUTO) 7.6 % (2-12); NEUTROPHILS # (AUTO) 12.1 X10'3 (1.8-7.7); NEUTROPHILS % (AUTO) 70.1 % (42-75); PLATELET COUNT 113 X10'3 (140-440); RED BLOOD COUNT 2.81 X10'6 (4.20-5.60); RED CELL DISTRIBUTION WIDTH 14.7 % (11.5-14.5); WHITE BLOOD COUNT 17.3 X10'3 (4.5-11.0)
[2022-01-06 10:46] LABS: ALANINE AMINOTRANSFERASE 31 U/L (12-78); ALBUMIN 2.3 G/DL (3.4-5.0); ALBUMIN/GLOBULIN RATIO 0.5 (1.1-1.5); ALKALINE PHOSPHATASE 231 IU/L (46-116); ANION GAP 10 (8-16); ASPARTATE AMINO TRANSFERASE 65 U/L (10-37); BLOOD UREA NITROGEN 8 MG/DL (7-18); BUN/CREATININE RATIO 13.6 (6.6-38.0); CALCIUM 8.7 MG/DL (8.5-10.1); CHLORIDE 102 MMOL/L (99-107); CREATININE 0.59 MG/DL (0.40-0.90); GLUCOSE 113 MG/DL (70-104); POTASSIUM 3.9 MMOL/L (3.5-5.1); SODIUM 133 MMOL/L (135-145); TOTAL CARBON DIOXIDE 21.1 MMOL/L (24-32); TOTAL PROTEIN 7.4 G/DL (6.4-8.2); eGFR > 90 ML/MIN
[2022-01-06 11:16] VITALS: BP 82/52
--- NOTE | 2022-01-06 18:22 | NUR ---
Patient in room BA 352. I have received report from MARGARITO BUTT and had the opportunity to ask questions and assume patient care. Addendum: 01/06/22 at 1823 by Lilli Wells RN Amended: Links added.
[2022-01-06 18:30] VITALS: BP 95/60
--- NOTE | 2022-01-06 18:48 | NUR ---
Problems reprioritized. Patient report given, questions answered & plan of care reviewed with JOSE PIMENTEL.
[2022-01-06] MEDS: polyethylene glycol 3350 17gm powd pack PO SCH (21:10)
[2022-01-06] MEDS: metoprolol succinate 25mg (24-HOUR) SR. Tablet PO SCH (21:11)
[2022-01-06 22:00] VITALS: BP 77/55
[2022-01-06 23:36] VITALS: BP 94/56
--- NOTE | 2022-01-07 02:50 | NUR ---
Student documentation: I have reviewed and agree with all interventions, assessments performed and documented by HAILE CANAS RN STUDENT.Student Medication Administration: For this medication-pass time frame, all medication were reviewed, dispensed, administered and documented per hospital policy by PATSY BE RN STUDENT. Addendum: 01/07/22 at 0254 by Lilli Wells RN Amended: Links added.
[2022-01-07 05:49] LABS: BASOPHILS % (AUTO) 0.2 % (0-1); EOSINOPHILS # (AUTO) 0.2 X10'3 (0-0.9); EOSINOPHILS % (AUTO) 1.4 % (0-6); HEMATOCRIT 26.7 % (35.0-45.0); HEMOGLOBIN 8.7 g/dl (12.0-16.0); MEAN CORPUSCULAR HEMOGLOBIN 31.6 PG (27.0-31.0); MEAN CORPUSCULAR HGB CONC 32.7 g/dL (33.0-36.5); MEAN CORPUSCULAR VOLUME 96.8 FL (78-98); MONOCYTES # (AUTO) 1.5 X10'3 (0-0.9); MONOCYTES % (AUTO) 10.3 % (2-12); NEUTROPHILS # (AUTO) 9.7 X10'3 (1.8-7.7); NEUTROPHILS % (AUTO) 67.1 % (42-75); PLATELET COUNT 118 X10'3 (140-440); RED BLOOD COUNT 2.76 X10'6 (4.20-5.60); RED CELL DISTRIBUTION WIDTH 15.1 % (11.5-14.5); WHITE BLOOD COUNT 14.5 X10'3 (4.5-11.0)
[2022-01-07 06:00] VITALS: BP 94/49
[2022-01-07 06:03] LABS: ALANINE AMINOTRANSFERASE 27 U/L (12-78); ALBUMIN 2.2 G/DL (3.4-5.0); ALBUMIN/GLOBULIN RATIO 0.4 (1.1-1.5); ALKALINE PHOSPHATASE 251 IU/L (46-116); ANION GAP 8 (8-16); ASPARTATE AMINO TRANSFERASE 64 U/L (10-37); BLOOD UREA NITROGEN 12 MG/DL (7-18); BUN/CREATININE RATIO 22.6 (6.6-38.0); CALCIUM 8.4 MG/DL (8.5-10.1); CHLORIDE 101 MMOL/L (99-107); CREATININE 0.53 MG/DL (0.40-0.90); GLUCOSE 89 MG/DL (70-104); POTASSIUM 3.9 MMOL/L (3.5-5.1); SODIUM 131 MMOL/L (135-145); TOTAL CARBON DIOXIDE 21.6 MMOL/L (24-32); TOTAL PROTEIN 7.1 G/DL (6.4-8.2); eGFR > 90 ML/MIN
--- NOTE | 2022-01-07 06:03 | NUR ---
Problems reprioritized. Patient report given, questions answered & plan of care reviewed with MARGARITO BUTT. Addendum: 01/07/22 at 0603 by Lilli Wells RN Amended: Links added.
[2022-01-07 07:04] LABS: PLATELET ESTIMATE DECREASED; TOTAL CELLS COUNTED 100
--- NOTE | 2022-01-07 07:06 | NUR ---
Patient in room BA 352. I have received report from Lilli PIMENTEL and had the opportunity to ask questions and assume patient care.
[2022-01-07] MEDS: K and/or MAG REPLACEMENT MC SCH ×2 (08:00→20:00)
[2022-01-07] MEDS: DOXYCYCLINE 100MG CAPSULE PO SCH ×2 (10:11→20:28)
[2022-01-07] MEDS: docusate sod 100mg capsule PO SCH ×2 (10:11→20:28)
[2022-01-07] MEDS: multivitamins, therapeutics tablet PO SCH (10:11)
[2022-01-07] MEDS: thiamine 100mg tablet PO SCH ×2 (10:11→20:28)
[2022-01-07] MEDS: cyclobenzaprine 10mg tablet PO SCH ×3 (10:11→20:28)
[2022-01-07] MEDS: acetaminophen 325mg tablet PO PRN ×2 (10:14→16:54)
[2022-01-07 10:56] LABS: A/G RATIO 0.5 (0.7-1.7); ALBUMIN 2.3 g/dL (2.9-4.4); BETA GLOBULIN 1.3 g/dL (0.7-1.3); GAMMA GLOBULIN 2.1 g/dL (0.4-1.8); GLOBULIN, TOTAL 4.4 g/dL (2.2-3.9); M-SPIKE Not Observed g/dL (Not Observed); PROTEIN, TOTAL, SERUM 6.7 g/dL (6.0-8.5)
[2022-01-07 17:59] VITALS: BP 95/59
[2022-01-07 18:00] VITALS: BP 108/69
--- NOTE | 2022-01-07 18:31 | NUR ---
Problems reprioritized. Patient report given, questions answered & plan of care reviewed with Lilli PIMENTEL.
--- NOTE | 2022-01-07 18:50 | NUR ---
Patient in room BA 352. I have received report from MARGARITO BUTT and had the opportunity to ask questions and assume patient care. Addendum: 01/07/22 at 1850 by Lilli Wells RN Amended: Links added.
[2022-01-07] MEDS: metoprolol succinate 25mg (24-HOUR) SR. Tablet PO SCH (20:28)
[2022-01-07] MEDS: polyethylene glycol 3350 17gm powd pack PO SCH (20:29)
[2022-01-07 22:00] VITALS: BP 87/58
--- NOTE | 2022-01-08 03:03 | NUR ---
Student documentation: I have reviewed and agree with all interventions, assessments performed and documented by HAILE Underwood RN STUDENT.Student Medication Administration: For this medication-pass time frame, all medication were reviewed, dispensed, administered and documented per hospital policy by HAILE UNDERWOOD RN STUDENT. Addendum: 01/08/22 at 0304 by Lilli Wells RN Amended: Links added.
[2022-01-08 06:00] VITALS: BP 116/74
--- NOTE | 2022-01-08 06:16 | NUR ---
Problems reprioritized. Patient report given, questions answered & plan of care reviewed with MARGARITO CHARLES. Addendum: 01/08/22 at 0618 by Lilli Wells RN Amended: Links added.
--- NOTE | 2022-01-08 06:18 | NUR ---
Problems reprioritized. Patient report given, questions answered & plan of care reviewed with MARGARITO CHARLES. Addendum: 01/08/22 at 0619 by Lilli Wells RN Amended: Links added.
[2022-01-08 06:36] LABS: BASOPHILS % (AUTO) 0.3 % (0-1); EOSINOPHILS # (AUTO) 0.2 X10'3 (0-0.9); EOSINOPHILS % (AUTO) 1.7 % (0-6); HEMATOCRIT 27.9 % (35.0-45.0); HEMOGLOBIN 8.9 g/dl (12.0-16.0); LYMPHOCYTES # (AUTO) 2.5 X10'3 (1.1-4.8); MEAN CORPUSCULAR HEMOGLOBIN 31.7 PG (27.0-31.0); MEAN CORPUSCULAR HGB CONC 32.1 g/dL (33.0-36.5); MEAN CORPUSCULAR VOLUME 98.6 FL (78-98); MEAN PLATELET VOLUME 8.8 FL (7.4-10.4); MONOCYTES # (AUTO) 0.9 X10'3 (0-0.9); NEUTROPHILS # (AUTO) 5.9 X10'3 (1.8-7.7); PLATELET COUNT 125 X10'3 (140-440); RED BLOOD COUNT 2.83 X10'6 (4.20-5.60); WHITE BLOOD COUNT 9.5 X10'3 (4.5-11.0)
[2022-01-08 06:44] LABS: ALANINE AMINOTRANSFERASE 27 U/L (12-78); ALBUMIN 2.2 G/DL (3.4-5.0); ALBUMIN/GLOBULIN RATIO 0.4 (1.1-1.5); ALKALINE PHOSPHATASE 245 IU/L (46-116); ANION GAP 9 (8-16); ASPARTATE AMINO TRANSFERASE 68 U/L (10-37); BILIRUBIN,TOTAL 0.9 MG/DL (0.1-1.0); BLOOD UREA NITROGEN 10 MG/DL (7-18); BUN/CREATININE RATIO 20.4 (6.6-38.0); CALCIUM 8.5 MG/DL (8.5-10.1); CHLORIDE 101 MMOL/L (99-107); CREATININE 0.49 MG/DL (0.40-0.90); GLUCOSE 87 MG/DL (70-104); SODIUM 131 MMOL/L (135-145); TOTAL CARBON DIOXIDE 20.6 MMOL/L (24-32); TOTAL PROTEIN 7.3 G/DL (6.4-8.2); eGFR > 90 ML/MIN
[2022-01-08 06:45] LABS: POTASSIUM 4.2 MMOL/L (3.5-5.1)
--- NOTE | 2022-01-08 06:46 | NUR ---
Patient in room BA 352. I have received report from MARGARITO Reeder and had the opportunity to ask questions and assume patient care.
[2022-01-08] MEDS: multivitamins, therapeutics tablet PO SCH (07:26)
[2022-01-08] MEDS: thiamine 100mg tablet PO SCH ×2 (07:26→20:13)
[2022-01-08] MEDS: cyclobenzaprine 10mg tablet PO SCH ×3 (07:26→20:13)
[2022-01-08] MEDS: docusate sod 100mg capsule PO SCH ×2 (07:26→20:13)
[2022-01-08] MEDS: DOXYCYCLINE 100MG CAPSULE PO SCH ×2 (07:26→20:13)
[2022-01-08] MEDS: K and/or MAG REPLACEMENT MC SCH ×2 (07:31→20:00)
[2022-01-08 10:03] LABS: PLATELET ESTIMATE DECREASED; TOTAL CELLS COUNTED 100
[2022-01-08 11:00] VITALS: BP 115/73
[2022-01-08 14:00] LABS: HEPATITIS C ANTIBODY Negative
[2022-01-08 18:00] VITALS: BP 108/67
[2022-01-08 18:10] VITALS: BP 121/77
--- NOTE | 2022-01-08 18:13 | NUR ---
Problems reprioritized. Patient report given, questions answered & plan of care reviewed with MARGARITO Toledo.
[2022-01-08] MEDS: polyethylene glycol 3350 17gm powd pack PO SCH (20:13)
[2022-01-08] MEDS: metoprolol succinate 25mg (24-HOUR) SR. Tablet PO SCH (20:13)
[2022-01-08] MEDS: acetaminophen 325mg tablet PO PRN (20:14)
[2022-01-08 22:00] VITALS: BP 120/78
[2022-01-09 06:00] VITALS: BP 117/69
[2022-01-09 06:36] LABS: BASOPHILS % (AUTO) 0.5 % (0-1); EOSINOPHILS # (AUTO) 0.2 X10'3 (0-0.9); EOSINOPHILS % (AUTO) 2.5 % (0-6); HEMATOCRIT 26.9 % (35.0-45.0); LYMPHOCYTES # (AUTO) 2.3 X10'3 (1.1-4.8); LYMPHOCYTES % (AUTO) 26.6 % (21-51); MEAN CORPUSCULAR HEMOGLOBIN 32.3 PG (27.0-31.0); MEAN CORPUSCULAR HGB CONC 33.4 g/dL (33.0-36.5); MEAN CORPUSCULAR VOLUME 96.9 FL (78-98); MEAN PLATELET VOLUME 8.7 FL (7.4-10.4); MONOCYTES % (AUTO) 11.6 % (2-12); NEUTROPHILS # (AUTO) 5.1 X10'3 (1.8-7.7); NEUTROPHILS % (AUTO) 58.8 % (42-75); PLATELET COUNT 151 X10'3 (140-440); RED BLOOD COUNT 2.77 X10'6 (4.20-5.60); RED CELL DISTRIBUTION WIDTH 14.8 % (11.5-14.5); WHITE BLOOD COUNT 8.7 X10'3 (4.5-11.0)
[2022-01-09 06:50] LABS: ALANINE AMINOTRANSFERASE 28 U/L (12-78); ALBUMIN/GLOBULIN RATIO 0.4 (1.1-1.5); ALKALINE PHOSPHATASE 255 IU/L (46-116); ANION GAP 12 (8-16); ASPARTATE AMINO TRANSFERASE 66 U/L (10-37); BILIRUBIN,TOTAL 0.8 MG/DL (0.1-1.0); BLOOD UREA NITROGEN 9 MG/DL (7-18); CALCIUM 8.4 MG/DL (8.5-10.1); CHLORIDE 99 MMOL/L (99-107); GLUCOSE 87 MG/DL (70-104); POTASSIUM 4.1 MMOL/L (3.5-5.1); SODIUM 129 MMOL/L (135-145); TOTAL CARBON DIOXIDE 18.5 MMOL/L (24-32); TOTAL PROTEIN 7.3 G/DL (6.4-8.2); eGFR > 90 ML/MIN
[2022-01-09] MEDS: K and/or MAG REPLACEMENT MC SCH ×2 (08:00→20:00)
[2022-01-09] MEDS: DOXYCYCLINE 100MG CAPSULE PO SCH ×2 (08:16→20:52)
[2022-01-09] MEDS: multivitamins, therapeutics tablet PO SCH (08:16)
[2022-01-09] MEDS: cyclobenzaprine 10mg tablet PO SCH ×3 (08:16→20:52)
[2022-01-09] MEDS: thiamine 100mg tablet PO SCH ×2 (08:16→20:52)
[2022-01-09] MEDS: docusate sod 100mg capsule PO SCH ×2 (08:17→20:53)
[2022-01-09 10:00] VITALS: BP 108/67
[2022-01-09 11:00] VITALS: BP 108/67
--- NOTE | 2022-01-09 12:33 | NUR ---
Reassessment: Pt continues on Regular diet w/ ~75% intake of meals meeting est needs at this time. LBM 01/08 receiving routine bowel care. No nutrition intervention implemented at this time, will continue to monitor Rec: 1. continue regular diet 2. continue routine thiamine/MVI for prior etoh hx per MD 3. routine bowel care 4. scaled wt this admit; subsequent weekly wts Addendum: 01/09/22 at [address] Amended: Links added.
[2022-01-09] MEDS: acetaminophen 325mg tablet PO PRN (17:15)
[2022-01-09 18:00] VITALS: BP 94/59
[2022-01-09 20:50] VITALS: BP 118/69
[2022-01-09] MEDS: metoprolol succinate 25mg (24-HOUR) SR. Tablet PO SCH (20:52)
[2022-01-09] MEDS: polyethylene glycol 3350 17gm powd pack PO SCH (20:53)
[2022-01-09 22:00] VITALS: BP 105/66
--- NOTE | 2022-01-10 06:35 | NUR ---
Patient in room BA 352. I have received report from pat rn and had the opportunity to ask questions and assume patient care.
[2022-01-10 06:48] VITALS: BP 117/73
[2022-01-10 07:16] LABS: BASOPHILS % (AUTO) 0.6 % (0-1); EOSINOPHILS # (AUTO) 0.1 X10'3 (0-0.9); EOSINOPHILS % (AUTO) 2.1 % (0-6); HEMATOCRIT 28.5 % (35.0-45.0); HEMOGLOBIN 9.3 g/dl (12.0-16.0); LYMPHOCYTES # (AUTO) 1.8 X10'3 (1.1-4.8); LYMPHOCYTES % (AUTO) 25.9 % (21-51); MEAN CORPUSCULAR HEMOGLOBIN 31.5 PG (27.0-31.0); MEAN CORPUSCULAR HGB CONC 32.5 g/dL (33.0-36.5); MEAN CORPUSCULAR VOLUME 96.9 FL (78-98); MEAN PLATELET VOLUME 8.8 FL (7.4-10.4); MONOCYTES # (AUTO) 0.6 X10'3 (0-0.9); NEUTROPHILS # (AUTO) 4.4 X10'3 (1.8-7.7); NEUTROPHILS % (AUTO) 62.4 % (42-75); PLATELET COUNT 152 X10'3 (140-440); RED BLOOD COUNT 2.94 X10'6 (4.20-5.60); RED CELL DISTRIBUTION WIDTH 14.9 % (11.5-14.5)
[2022-01-10 07:52] LABS: ALANINE AMINOTRANSFERASE 29 U/L (12-78); ALBUMIN 2.2 G/DL (3.4-5.0); ALBUMIN/GLOBULIN RATIO 0.4 (1.1-1.5); ALKALINE PHOSPHATASE 262 IU/L (46-116); ANION GAP 10 (8-16); ASPARTATE AMINO TRANSFERASE 65 U/L (10-37); BILIRUBIN,TOTAL 0.8 MG/DL (0.1-1.0); BLOOD UREA NITROGEN 9 MG/DL (7-18); BUN/CREATININE RATIO 19.1 (6.6-38.0); CALCIUM 8.4 MG/DL (8.5-10.1); CHLORIDE 100 MMOL/L (99-107); CREATININE 0.47 MG/DL (0.40-0.90); FERRITIN 424 NG/ML (8-252); GLUCOSE 95 MG/DL (70-104); POTASSIUM 3.9 MMOL/L (3.5-5.1); SODIUM 131 MMOL/L (135-145); TOTAL CARBON DIOXIDE 21.3 MMOL/L (24-32); TOTAL PROTEIN 7.3 G/DL (6.4-8.2); eGFR > 90 ML/MIN
[2022-01-10 07:56] LABS: % IRON SATURATION 14 % (11-46); IRON 37 UG/DL (49-151); TOTAL IRON BINDING CAPACITY 257 UG/DL (259-388)
[2022-01-10] MEDS: K and/or MAG REPLACEMENT MC SCH ×2 (08:00→20:00)
[2022-01-10] MEDS: thiamine 100mg tablet PO SCH ×2 (08:19→20:18)
[2022-01-10] MEDS: cyclobenzaprine 10mg tablet PO SCH ×3 (08:19→20:18)
[2022-01-10] MEDS: multivitamins, therapeutics tablet PO SCH (08:19)
[2022-01-10] MEDS: docusate sod 100mg capsule PO SCH ×2 (08:19→20:17)
[2022-01-10] MEDS: DOXYCYCLINE 100MG CAPSULE PO SCH ×2 (08:20→20:17)
--- NOTE | 2022-01-10 13:58 | NUR ---
Patient in room BA 352. I have received report from Norma PIMENTEL and had the opportunity to ask questions and assume patient care.
--- NOTE | 2022-01-10 13:58 | NUR ---
Problems reprioritized. Patient report given, questions answered & plan of care reviewed with JOHN ACEVEDO.
[2022-01-10] MEDS: iron sucrose complex injection 200 MG in normal saline 100ml IV soln 100 ML IV SCH (15:24)
--- NOTE | 2022-01-10 15:30 | NUR ---
I agree with Norma PIMENTEL physical assessment. Only change patient has bilateral feet numbness, bilateral dorsalis pedis pulses are weak and lung sounds posterior are diminished and course.
--- NOTE | 2022-01-10 17:53 | NUR ---
patient visiting and came to the nurses station stating that patient fell trying to get to the bedside commode. Throughout the day we transferred patient to the bedside commode using 2 person assist and the steady. Patient was found sitting upright on her buttocks in the middle of the room floor. Patient seems to be fine, and stating out loud that she is ok and not hurt. Patient vitals were taken and helped patient to the bedside commode. Afterwards, cleaned patient and gently placed her back in bed. Bed alarm set, bed in lowest position and locked, siderails up x2, call light within reach. Educated patient on the importance of using her call light and the safety of herself to not get up with out help. Patient and verbalized understanding.
[2022-01-10 18:00] VITALS: BP 103/62
--- NOTE | 2022-01-10 18:16 | NUR ---
PAGER ID: [phone] MESSAGE: Chadd-Perfecto Joiner: Patient had a fall trying to move herself to the bedside commode. Patient was checked and states she is ok. Thank you Jennifer ACEVEDO [phone]
--- NOTE | 2022-01-10 18:24 | NUR ---
Problems reprioritized. Patient report given, questions answered & plan of care reviewed with Marcy PIMENTEL.
[2022-01-10] MEDS: polyethylene glycol 3350 17gm powd pack PO SCH (20:16)
[2022-01-10] MEDS: acetaminophen 325mg tablet PO PRN (20:17)
[2022-01-10] MEDS: metoprolol succinate 25mg (24-HOUR) SR. Tablet PO SCH (20:18)
[2022-01-10 22:00] VITALS: BP 124/72
[2022-01-11 06:00] VITALS: BP 110/75
--- NOTE | 2022-01-11 06:08 | NUR ---
Problems reprioritized. Patient report given, questions answered & plan of care reviewed with Jennifer PIMENTEL. Addendum: 01/11/22 at 0609 by Marcy Vasques RN Amended: Links added.
--- NOTE | 2022-01-11 06:21 | NUR ---
Patient in room BA 352. I have received report from Marcy PIMENTEL and had the opportunity to ask questions and assume patient care.
[2022-01-11] MEDS: K and/or MAG REPLACEMENT MC SCH ×2 (08:00→20:00)
[2022-01-11 08:08] LABS: BASOPHILS # (AUTO) 0.1 X10'3 (0-0.2); BASOPHILS % (AUTO) 0.9 % (0-1); EOSINOPHILS # (AUTO) 0.1 X10'3 (0-0.9); EOSINOPHILS % (AUTO) 1.7 % (0-6); HEMATOCRIT 27.1 % (35.0-45.0); HEMOGLOBIN 9.1 g/dl (12.0-16.0); LYMPHOCYTES # (AUTO) 2.1 X10'3 (1.1-4.8); LYMPHOCYTES % (AUTO) 31.4 % (21-51); MEAN CORPUSCULAR HEMOGLOBIN 31.9 PG (27.0-31.0); MEAN CORPUSCULAR HGB CONC 33.6 g/dL (33.0-36.5); MEAN CORPUSCULAR VOLUME 95.1 FL (78-98); MEAN PLATELET VOLUME 8.6 FL (7.4-10.4); MONOCYTES # (AUTO) 0.6 X10'3 (0-0.9); NEUTROPHILS # (AUTO) 3.8 X10'3 (1.8-7.7); PLATELET COUNT 149 X10'3 (140-440); RED BLOOD COUNT 2.85 X10'6 (4.20-5.60); RED CELL DISTRIBUTION WIDTH 14.8 % (11.5-14.5); WHITE BLOOD COUNT 6.7 X10'3 (4.5-11.0)
[2022-01-11] MEDS: docusate sod 100mg capsule PO SCH ×2 (08:29→20:00)
[2022-01-11] MEDS: multivitamins, therapeutics tablet PO SCH (08:29)
[2022-01-11] MEDS: cyclobenzaprine 10mg tablet PO SCH ×3 (08:29→20:44)
[2022-01-11] MEDS: thiamine 100mg tablet PO SCH ×2 (08:30→20:44)
[2022-01-11] MEDS: DOXYCYCLINE 100MG CAPSULE PO SCH ×2 (08:30→20:44)
[2022-01-11 08:34] LABS: ALANINE AMINOTRANSFERASE 28 U/L (12-78); ALBUMIN 2.2 G/DL (3.4-5.0); ALBUMIN/GLOBULIN RATIO 0.4 (1.1-1.5); ALKALINE PHOSPHATASE 255 IU/L (46-116); ANION GAP 8 (8-16); ASPARTATE AMINO TRANSFERASE 63 U/L (10-37); BILIRUBIN,TOTAL 0.8 MG/DL (0.1-1.0); BLOOD UREA NITROGEN 9 MG/DL (7-18); BUN/CREATININE RATIO 17.6 (6.6-38.0); CALCIUM 8.5 MG/DL (8.5-10.1); CHLORIDE 99 MMOL/L (99-107); CREATININE 0.51 MG/DL (0.40-0.90); GLUCOSE 94 MG/DL (70-104); POTASSIUM 3.9 MMOL/L (3.5-5.1); SODIUM 129 MMOL/L (135-145); TOTAL CARBON DIOXIDE 21.8 MMOL/L (24-32); TOTAL PROTEIN 7.2 G/DL (6.4-8.2); eGFR > 90 ML/MIN
[2022-01-11] MEDS: iron sucrose complex injection 200 MG in normal saline 100ml IV soln 100 ML IV SCH (08:36)
[2022-01-11 10:00] VITALS: BP 113/69
--- NOTE | 2022-01-11 17:58 | NUR ---
cared for patient today. Patient was very pleasant today. visited throughout the day
[2022-01-11 18:00] VITALS: BP 98/59
--- NOTE | 2022-01-11 18:35 | NUR ---
Problems reprioritized. Patient report given, questions answered & plan of care reviewed with Wilner PIMENTEL.
[2022-01-11] MEDS: polyethylene glycol 3350 17gm powd pack PO SCH (20:44)
[2022-01-11] MEDS: metoprolol succinate 25mg (24-HOUR) SR. Tablet PO SCH (20:44)
[2022-01-11 20:50] VITALS: BP 102/66
[2022-01-11 22:00] VITALS: BP 108/70
--- NOTE | 2022-01-12 06:17 | NUR ---
reported to days. noted pt uses bed marie and bed alarm is active. pt has been compliant with using call light, but has urgency with urinating. encouraged rajeev summers. Addendum: 01/12/22 at 0618 by Wilner Borja RN suggested pt may benefit from another tele-neurology consult.
[2022-01-12 06:46] VITALS: BP 121/73
--- NOTE | 2022-01-12 07:01 | NUR ---
Patient in room BA 352. I have received report from Wilner PIMENTEL and had the opportunity to ask questions and assume patient care.
[2022-01-12] MEDS: K and/or MAG REPLACEMENT MC SCH ×2 (08:00→19:46)
[2022-01-12] MEDS: cyclobenzaprine 10mg tablet PO SCH ×3 (08:08→20:00)
[2022-01-12] MEDS: DOXYCYCLINE 100MG CAPSULE PO SCH ×2 (08:08→20:00)
[2022-01-12] MEDS: docusate sod 100mg capsule PO SCH ×2 (08:08→20:00)
[2022-01-12] MEDS: thiamine 100mg tablet PO SCH ×2 (08:08→20:00)
[2022-01-12] MEDS: multivitamins, therapeutics tablet PO SCH (08:08)
[2022-01-12] MEDS: iron sucrose complex injection 200 MG in normal saline 100ml IV soln 100 ML IV SCH (08:09)
[2022-01-12] MEDS: acetaminophen 325mg tablet PO PRN (09:09)
[2022-01-12 11:30] VITALS: BP 102/61
[2022-01-12 12:32] LABS: BASOPHILS % (AUTO) 0.4 % (0-1); EOSINOPHILS # (AUTO) 0.1 X10'3 (0-0.9); EOSINOPHILS % (AUTO) 1.9 % (0-6); HEMOGLOBIN 9.3 g/dl (12.0-16.0); LYMPHOCYTES # (AUTO) 1.9 X10'3 (1.1-4.8); LYMPHOCYTES % (AUTO) 28.7 % (21-51); MEAN CORPUSCULAR HEMOGLOBIN 31.8 PG (27.0-31.0); MEAN CORPUSCULAR VOLUME 96.3 FL (78-98); MEAN PLATELET VOLUME 8.3 FL (7.4-10.4); MONOCYTES # (AUTO) 0.9 X10'3 (0-0.9); NEUTROPHILS # (AUTO) 3.7 X10'3 (1.8-7.7); PLATELET COUNT 163 X10'3 (140-440); RED BLOOD COUNT 2.91 X10'6 (4.20-5.60); RED CELL DISTRIBUTION WIDTH 14.6 % (11.5-14.5); WHITE BLOOD COUNT 6.6 X10'3 (4.5-11.0)
[2022-01-12 12:49] LABS: ALANINE AMINOTRANSFERASE 30 U/L (12-78); ALBUMIN 2.3 G/DL (3.4-5.0); ALBUMIN/GLOBULIN RATIO 0.4 (1.1-1.5); ALKALINE PHOSPHATASE 257 IU/L (46-116); ANION GAP 10 (8-16); ASPARTATE AMINO TRANSFERASE 60 U/L (10-37); BILIRUBIN,TOTAL 0.8 MG/DL (0.1-1.0); BLOOD UREA NITROGEN 7 MG/DL (7-18); BUN/CREATININE RATIO 12.1 (6.6-38.0); CALCIUM 8.6 MG/DL (8.5-10.1); CHLORIDE 101 MMOL/L (99-107); CREATININE 0.58 MG/DL (0.40-0.90); GLUCOSE 107 MG/DL (70-104); SODIUM 133 MMOL/L (135-145); TOTAL CARBON DIOXIDE 22.1 MMOL/L (24-32); TOTAL PROTEIN 7.5 G/DL (6.4-8.2); eGFR > 90 ML/MIN
[2022-01-12 18:00] VITALS: BP 98/63
--- NOTE | 2022-01-12 18:27 | NUR ---
Problems reprioritized. Patient report given, questions answered & plan of care reviewed with Rosa PIMENTEL.
--- NOTE | 2022-01-12 18:52 | NUR ---
Patient in room BA 352. I have received report from Tj and had the opportunity to ask questions and assume patient care.
[2022-01-12] MEDS: polyethylene glycol 3350 17gm powd pack PO SCH (20:00)
[2022-01-12] MEDS: metoprolol succinate 25mg (24-HOUR) SR. Tablet PO SCH (20:00)
[2022-01-12 22:00] VITALS: BP 106/68
--- NOTE | 2022-01-13 05:57 | NUR ---
Problems reprioritized. Patient report given, questions answered & plan of care reviewed with Tj.
[2022-01-13 06:45] LABS: HEMOGLOBIN 9.1 g/dl (12.0-16.0); MEAN CORPUSCULAR HGB CONC 32.8 g/dL (33.0-36.5); RED BLOOD COUNT 2.91 X10'6 (4.20-5.60); RED CELL DISTRIBUTION WIDTH 14.5 % (11.5-14.5)
[2022-01-13 06:48] LABS: BASOPHILS % (AUTO) 0.5 % (0-1); EOSINOPHILS # (AUTO) 0.1 X10'3 (0-0.9); EOSINOPHILS % (AUTO) 1.9 % (0-6); HEMATOCRIT 27.8 % (35.0-45.0); LYMPHOCYTES % (AUTO) 29.8 % (21-51); MEAN CORPUSCULAR HEMOGLOBIN 31.4 PG (27.0-31.0); MEAN CORPUSCULAR VOLUME 95.7 FL (78-98); MEAN PLATELET VOLUME 8.3 FL (7.4-10.4); MONOCYTES # (AUTO) 0.8 X10'3 (0-0.9); MONOCYTES % (AUTO) 12.2 % (2-12); NEUTROPHILS # (AUTO) 3.8 X10'3 (1.8-7.7); NEUTROPHILS % (AUTO) 55.6 % (42-75); PLATELET COUNT 182 X10'3 (140-440); WHITE BLOOD COUNT 6.8 X10'3 (4.5-11.0)
--- NOTE | 2022-01-13 06:49 | NUR ---
Patient in room BA 352. I have received report from Rosa PIMENTEL and had the opportunity to ask questions and assume patient care. Addendum: 01/13/22 at 0649 by Kevin Mckee RN Rosa ACEVEDO
[2022-01-13 07:13] VITALS: BP 119/78
[2022-01-13 07:55] LABS: ALANINE AMINOTRANSFERASE 29 U/L (12-78); ALBUMIN 2.3 G/DL (3.4-5.0); ALBUMIN/GLOBULIN RATIO 0.4 (1.1-1.5); ALKALINE PHOSPHATASE 274 IU/L (46-116); ANION GAP 8 (8-16); ASPARTATE AMINO TRANSFERASE 57 U/L (10-37); BILIRUBIN,TOTAL 0.8 MG/DL (0.1-1.0); BLOOD UREA NITROGEN 8 MG/DL (7-18); BUN/CREATININE RATIO 16.3 (6.6-38.0); CALCIUM 8.5 MG/DL (8.5-10.1); CHLORIDE 100 MMOL/L (99-107); CREATININE 0.49 MG/DL (0.40-0.90); GLUCOSE 94 MG/DL (70-104); SODIUM 130 MMOL/L (135-145); TOTAL CARBON DIOXIDE 22.4 MMOL/L (24-32); TOTAL PROTEIN 7.5 G/DL (6.4-8.2); eGFR > 90 ML/MIN
[2022-01-13] MEDS: K and/or MAG REPLACEMENT MC SCH ×2 (08:00→20:00)
[2022-01-13] MEDS: DOXYCYCLINE 100MG CAPSULE PO SCH ×2 (08:57→21:31)
[2022-01-13] MEDS: docusate sod 100mg capsule PO SCH ×2 (08:57→21:31)
[2022-01-13] MEDS: cyclobenzaprine 10mg tablet PO SCH ×3 (08:57→21:32)
[2022-01-13] MEDS: thiamine 100mg tablet PO SCH ×2 (08:57→21:31)
[2022-01-13] MEDS: multivitamins, therapeutics tablet PO SCH (08:57)
[2022-01-13] MEDS: iron sucrose complex injection 200 MG in normal saline 100ml IV soln 100 ML IV SCH (08:57)
[2022-01-13 11:09] VITALS: BP 98/56
[2022-01-13] MEDS: acetaminophen 325mg tablet PO PRN (17:07)
[2022-01-13 18:00] VITALS: BP 107/62
--- NOTE | 2022-01-13 19:07 | NUR ---
Problems reprioritized. Patient report given, questions answered & plan of care reviewed with Anjali PIMENTEL.
[2022-01-13] MEDS: polyethylene glycol 3350 17gm powd pack PO SCH (21:00)
[2022-01-13 21:27] VITALS: BP 129/75
[2022-01-13] MEDS: enoxaparin 40mg/0.4ml syringe SUBCUT SCH (21:32)
[2022-01-13] MEDS: metoprolol succinate 25mg (24-HOUR) SR. Tablet PO SCH (21:32)
--- NOTE | 2022-01-14 06:30 | NUR ---
Problems reprioritized. Patient report given, questions answered & plan of care reviewed with MARGARITO BUTT.
--- NOTE | 2022-01-14 07:33 | NUR ---
Patient in room BA 352. I have received report from GALO PIMENTEL and had the opportunity to ask questions and assume patient care.
[2022-01-14 07:37] VITALS: BP 111/68
[2022-01-14] MEDS: K and/or MAG REPLACEMENT MC SCH ×2 (08:00→20:00)
[2022-01-14] MEDS: multivitamins, therapeutics tablet PO SCH (08:32)
[2022-01-14] MEDS: docusate sod 100mg capsule PO SCH ×2 (08:32→20:11)
[2022-01-14] MEDS: cyclobenzaprine 10mg tablet PO SCH ×3 (08:32→20:11)
[2022-01-14] MEDS: thiamine 100mg tablet PO SCH ×2 (08:32→20:11)
[2022-01-14] MEDS: acetaminophen 325mg tablet PO PRN ×2 (08:34→20:13)
[2022-01-14] MEDS: iron sucrose complex injection 200 MG in normal saline 100ml IV soln 100 ML IV SCH (08:40)
[2022-01-14 13:57] VITALS: BP 105/65
[2022-01-14 18:00] VITALS: BP 112/70
--- NOTE | 2022-01-14 18:28 | NUR ---
Problems reprioritized. Patient report given, questions answered & plan of care reviewed with Anjali PIMENTEL.
[2022-01-14 20:10] VITALS: BP 105/65
[2022-01-14] MEDS: enoxaparin 40mg/0.4ml syringe SUBCUT SCH (20:10)
[2022-01-14] MEDS: metoprolol succinate 25mg (24-HOUR) SR. Tablet PO SCH (20:11)
[2022-01-14] MEDS: polyethylene glycol 3350 17gm powd pack PO SCH (20:13)
[2022-01-14 22:00] VITALS: BP 105/65
[2022-01-15 06:00] VITALS: BP 101/58
--- NOTE | 2022-01-15 06:30 | NUR ---
Patient in room BA 352. I have received report from Anjali PIMENTEL and had the opportunity to ask questions and assume patient care.
--- NOTE | 2022-01-15 06:48 | NUR ---
Problems reprioritized. Patient report given, questions answered & plan of care reviewed with MARGARITO LOPEZ.
[2022-01-15] MEDS: iron sucrose complex injection 200 MG in normal saline 100ml IV soln 100 ML IV SCH (07:54)
[2022-01-15] MEDS: K and/or MAG REPLACEMENT MC SCH ×2 (08:00→19:49)
[2022-01-15] MEDS: cyclobenzaprine 10mg tablet PO SCH ×3 (08:21→19:51)
[2022-01-15] MEDS: thiamine 100mg tablet PO SCH ×2 (08:22→19:52)
[2022-01-15] MEDS: multivitamins, therapeutics tablet PO SCH (08:22)
[2022-01-15] MEDS: docusate sod 100mg capsule PO SCH ×2 (08:22→19:51)
[2022-01-15] MEDS: acetaminophen 325mg tablet PO PRN ×2 (08:25→20:03)
[2022-01-15 08:36] VITALS: BP 111/65
[2022-01-15 11:00] VITALS: BP 110/71
--- NOTE | 2022-01-15 13:07 | NUR ---
Reassessment: Pt continues eating well, documented with 75-100% PO intake on regular diet meeting estimated nutrient needs. [facility] 01/15. No nutrition intervention implemented at this time. Will continue to follow. Recommendations: 1. Continue regular diet 2. Continue routine thiamine/MVI for prior EtOH hx per MD 3. Routine bowel care 4. Scaled wt this admit; subsequent weekly wts Addendum: 01/15/22 at [address] Amended: Links added.
[2022-01-15 18:00] VITALS: BP 119/75
--- NOTE | 2022-01-15 18:00 | NUR ---
I have reviewed and agree with all interventions, assessments performed and documentation by Jennifer Chakraborty LVN.
--- NOTE | 2022-01-15 18:23 | NUR ---
Problems reprioritized. Patient report given, questions answered & plan of care reviewed with Anjali PIMENTEL.
[2022-01-15 19:50] VITALS: BP 103/65
[2022-01-15] MEDS: metoprolol succinate 25mg (24-HOUR) SR. Tablet PO SCH (19:51)
[2022-01-15] MEDS: ferrous gluconate 324mg tablet PO SCH (19:52)
[2022-01-15] MEDS: polyethylene glycol 3350 17gm powd pack PO SCH (19:52)
[2022-01-15] MEDS: enoxaparin 40mg/0.4ml syringe SUBCUT SCH (19:53)
[2022-01-15 22:00] VITALS: BP 118/76
--- NOTE | 2022-01-16 01:07 | NUR ---
Paged Dr Spain PAGER ID: [phone] MESSAGE: PT RM 352 LANDEN SOTOY Fell/slid when being transferred from bed to commode. Didn't hit head; no apparent injury.
--- NOTE | 2022-01-16 01:09 | NUR ---
Pt had a fall/slide when being transported from bed to commode. Pt did not hit her head was being supported by two aides under her arms and was sitting on the floor. No obvious injuries. Dr. Spain notified by phone and no new orders at this time.
[2022-01-16 06:00] VITALS: BP 110/68
--- NOTE | 2022-01-16 06:13 | NUR ---
Problems reprioritized. Patient report given, questions answered & plan of care reviewed with MARGARITO Rodriguez.
--- NOTE | 2022-01-16 06:29 | NUR ---
Patient in room BA 352. I have received report from Anjali PIMENTEL and had the opportunity to ask questions and assume patient care.
[2022-01-16] MEDS: K and/or MAG REPLACEMENT MC SCH (07:05)
[2022-01-16] MEDS: ferrous gluconate 324mg tablet PO SCH (07:15)
[2022-01-16] MEDS: cyclobenzaprine 10mg tablet PO SCH ×2 (07:15→13:10)
[2022-01-16] MEDS: docusate sod 100mg capsule PO SCH (07:15)
[2022-01-16] MEDS: multivitamins, therapeutics tablet PO SCH (07:16)
[2022-01-16] MEDS: thiamine 100mg tablet PO SCH (07:16)
[2022-01-16 10:00] VITALS: BP 99/60
--- NOTE | 2022-01-16 14:41 | NUR ---
I have reviewed and agree with all interventions, assessments performed, and documention by Jennifer Chakraborty LVN.
--- NOTE | 2022-01-16 14:54 | NUR ---
Cared for patient today. Patient was discharged to [facility] for rehab. Patient was dressed and all belongings were gathered. Report was called to [facility] and report given to Elvira PIMENTEL. [employer] and personnel picked up patient with a gurney and all belongings were sent with them. Patient was alert, appropriate and stable for transfer. patient left out of hospital with [employer] personnel and put into [employer] van.
== END 2022-01-16 14:52 | DRG 48 ==
LOC: ER 08:23 → ED HOLD 15:13 → SUR 3N 01-01 05:22
PROVIDERS: ADMIT Family Medicine; ATTEND Family Medicine
PROC: 009U3ZX Drainage of Spinal Canal, Percutaneous Approach, Diagnostic (ICD-10-PCS; principal; 2022-01-02)
PROC: B01B1ZZ Fluoroscopy of Spinal Cord using Low Osmolar Contrast (ICD-10-PCS; 2022-01-02)
DX: G62.9 Polyneuropathy, unspecified (principal); D69.6 Thrombocytopenia, unspecified; K76.0 Fatty (change of) liver, not elsewhere classified; I95.9 Hypotension, unspecified; E87.1 Hypo-osmolality and hyponatremia; E87.6 Hypokalemia; Z20.822 Contact with and (suspected) exposure to COVID-19; E88.09 Other disorders of plasma-protein metabolism, not elsewhere classified; I10 Essential (primary) hypertension; I70.203 Unspecified atherosclerosis of native arteries of extremities, bilateral legs; E53.8 Deficiency of other specified B group vitamins; J32.9 Chronic sinusitis, unspecified; R47.1 Dysarthria and anarthria; K57.30 Diverticulosis of large intestine without perforation or abscess without bleeding; J06.9 Acute upper respiratory infection, unspecified; K80.20 Calculus of gallbladder without cholecystitis without obstruction; M43.06 Spondylolysis, lumbar region; M47.812 Spondylosis without myelopathy or radiculopathy, cervical region; M47.816 Spondylosis without myelopathy or radiculopathy, lumbar region; D50.9 Iron deficiency anemia, unspecified; R26.2 Difficulty in walking, not elsewhere classified; R47.81 Slurred speech; R94.31 Abnormal electrocardiogram [ECG] [EKG]; Z79.899 Other long term (current) drug therapy
CPT/HCPCS: 36415; 62328; 70450; 70551; 70553; 71045; 72141; 72146; 72148; 74176; 77003; 80053; 80074; 81001; 82272; 82607; 82728; 82746; 82977; 83540; 83550; 83605; 83690; 83735; 84100; 84145; 84155; 84165; 84425; 84443; 84484; 85007; 85025; 86738; 87015; 87040; 87070; 87081; 87088; 87811; 89051; 92508; 92616; 93005; 93306; 93922; 93925; 96360; 97110; 97112; 97161; 97530; 97535; 99285; A6212; A6213; A6449; A9575; G0378; J0696; J1644; J1650; J1756; J3490; J7030

== ENCOUNTER 2022-01-25 14:56 | Emergency (ER) | payer MEDICAID ==
[~2022-01-25] VITALS: Ht 170.2 cm; Wt 84.0 kg
[~2022-01-25 14:56] MED LIST changes: +ACET-2778 PO; +DOXY100T2 PO; +GABA-530 PO; +HYDR25TA5 PO; +IBUP-49 PO; +METH-797 PO
[2022-01-25 16:12] LABS: BASOPHILS % (AUTO) 0.7 % (0-1); EOSINOPHILS # (AUTO) 0.2 X10'3 (0-0.9); EOSINOPHILS % (AUTO) 2.5 % (0-6); HEMATOCRIT 30.5 % (35.0-45.0); HEMOGLOBIN 10.1 g/dl (12.0-16.0); LYMPHOCYTES # (AUTO) 2.1 X10'3 (1.1-4.8); LYMPHOCYTES % (AUTO) 33.4 % (21-51); MEAN CORPUSCULAR HEMOGLOBIN 31.3 PG (27.0-31.0); MEAN CORPUSCULAR HGB CONC 33.2 g/dL (33.0-36.5); MEAN CORPUSCULAR VOLUME 94.3 FL (78-98); MEAN PLATELET VOLUME 7.6 FL (7.4-10.4); MONOCYTES # (AUTO) 0.6 X10'3 (0-0.9); MONOCYTES % (AUTO) 9.8 % (2-12); NEUTROPHILS # (AUTO) 3.3 X10'3 (1.8-7.7); NEUTROPHILS % (AUTO) 53.6 % (42-75); PLATELET COUNT 183 X10'3 (140-440); RED BLOOD COUNT 3.24 X10'6 (4.20-5.60); RED CELL DISTRIBUTION WIDTH 14.4 % (11.5-14.5); WHITE BLOOD COUNT 6.2 X10'3 (4.5-11.0)
[2022-01-25 16:25] LABS: ALANINE AMINOTRANSFERASE 31 U/L (12-78); ALBUMIN 2.7 G/DL (3.4-5.0); ALBUMIN/GLOBULIN RATIO 0.5 (1.1-1.5); ALKALINE PHOSPHATASE 242 IU/L (46-116); ANION GAP 8 (8-16); ASPARTATE AMINO TRANSFERASE 53 U/L (10-37); BILIRUBIN,TOTAL 0.7 MG/DL (0.1-1.0); BLOOD UREA NITROGEN 9 MG/DL (7-18); CALCIUM 9.3 MG/DL (8.5-10.1); CHLORIDE 99 MMOL/L (99-107); GLUCOSE 115 MG/DL (70-104); POTASSIUM 3.7 MMOL/L (3.5-5.1); SODIUM 130 MMOL/L (135-145); TOTAL CARBON DIOXIDE 23.3 MMOL/L (24-32); TOTAL PROTEIN 8.4 G/DL (6.4-8.2); eGFR > 90 ML/MIN
[2022-01-25 17:03] LABS: C-REACTIVE PROTEIN 0.79 MG/DL (0.0-0.5)
[2022-01-25] MEDS ORDERED: acetaminophen 325mg tablet PO ONE (21:20)
--- NOTE | 2022-01-26 05:09 | NUR ---
NO IV APPLIED DUE TO NO IV MEDICATIONS. PT REQUESTED WE WAITED TO ADMINISTER IV UNTIL NEEDED. EDUCATION WAS PROVIDED TO THE PT, AND SHE STILL WISHED TO HOLD OFF ON THE IV.
[2022-01-26] MEDS ORDERED: cyanocobalamin 1,000 mcg/ml inj IM ONE (07:20)
[2022-01-26 16:39] LABS: CLARITY,URINE CLEAR (Clear); COLOR,URINE YELLOW (Yellow); GLUCOSE, URINE NEGATIVE (Neg); KETONES,URINE NEGATIVE (Neg); LEUKOCYTE ESTERASE ,URINE LARGE (Neg); NITRITES, URINE NEGATIVE (Neg); OCCULT BLOOD,URINE NEGATIVE (Neg); PROTEIN,URINE NEGATIVE (Neg)
[2022-01-26 16:42] LABS: UA COLLECTION TYPE NON-SPECIFIED
[2022-01-26 16:45] LABS: BACTERIA,URINE FEW /HPF (Neg); MUCUS STRANDS FEW /LPF (Neg); RBC,URINE 0-2 /HPF (0-2); SQUAMOUS EPITHELIAL CELL,UR MANY /LPF (FEW)
[2022-01-26] MEDS ORDERED: folic acid 1mg tablet PO ONE (19:25)
[2022-01-26] MEDS ORDERED: thiamine 100mg tablet PO SCH (20:00)
[2022-01-26 21:36] VITALS: BP 142/98
== END 2022-01-27 10:12 | disposition short-term general hospital (02) ==
LOC: ER 14:57
DX: G61.81 Chronic inflammatory demyelinating polyneuritis (principal); Z20.822 Contact with and (suspected) exposure to COVID-19; R53.1 Weakness; I10 Essential (primary) hypertension; Z98.890 Other specified postprocedural states; Z72.89 Other problems related to lifestyle; Z79.2 Long term (current) use of antibiotics; Z79.899 Other long term (current) drug therapy
CPT/HCPCS: 36415; 80053; 81001; 83735; 84484; 85025; 85651; 86140; 87635; 93005; 96372; 99291; 99292; C9803; J3420; 99285

== ENCOUNTER 2023-01-20 09:45 | Emergency (ER) | payer MEDICAID ==
[~2023-01-20] VITALS: Ht 170.2 cm; Wt 83.0 kg
[2023-01-20] MEDS ORDERED: iohexol 300mg/ml 100ml inj. ONE (10:52)
[2023-01-20 11:37] VITALS: BP 120/68; PULSE 55; RESP 17; TEMP 98.5; O2SAT 99
[2023-01-20 12:29] LABS: BASOPHILS # (AUTO) 0.1 X10'3 (0-0.2); BASOPHILS % (AUTO) 1.3 % (0-1); EOSINOPHILS # (AUTO) 0.1 X10'3 (0-0.9); EOSINOPHILS % (AUTO) 1.5 % (0-6); HEMATOCRIT 33.7 % (35.0-45.0); HEMOGLOBIN 11.2 g/dl (12.0-16.0); LYMPHOCYTES # (AUTO) 3.3 X10'3 (1.1-4.8); LYMPHOCYTES % (AUTO) 34.4 % (21-51); MEAN CORPUSCULAR HEMOGLOBIN 30.9 PG (27.0-31.0); MEAN CORPUSCULAR HGB CONC 33.2 g/dL (33.0-36.5); MEAN CORPUSCULAR VOLUME 92.9 FL (78-98); MEAN PLATELET VOLUME 8.9 FL (7.4-10.4); MONOCYTES # (AUTO) 0.7 X10'3 (0-0.9); NEUTROPHILS # (AUTO) 5.4 X10'3 (1.8-7.7); NEUTROPHILS % (AUTO) 55.8 % (42-75); PLATELET COUNT 210 X10'3 (140-440); RED BLOOD COUNT 3.63 X10'6 (4.20-5.60); RED CELL DISTRIBUTION WIDTH 15.3 % (11.5-14.5); WHITE BLOOD COUNT 9.7 X10'3 (4.5-11.0)
[2023-01-20 13:23] LABS: ALANINE AMINOTRANSFERASE 25 U/L (12-78); ALBUMIN 2.5 G/DL (3.4-5.0); ALBUMIN/GLOBULIN RATIO 0.4 (1.1-1.5); ALKALINE PHOSPHATASE 195 IU/L (46-116); ANION GAP 10 (8-16); ASPARTATE AMINO TRANSFERASE 58 U/L (10-37); BILIRUBIN,TOTAL 1.6 MG/DL (0.1-1.0); BLOOD UREA NITROGEN 5 MG/DL (7-18); BUN/CREATININE RATIO 7.2 (10.0-20.0); CALCIUM 8.7 MG/DL (8.5-10.1); CHLORIDE 101 MMOL/L (99-107); CREATININE 0.69 MG/DL (0.40-0.90); GLUCOSE 98 MG/DL (70-104); POTASSIUM 3.6 MMOL/L (3.5-5.1); SODIUM 131 MMOL/L (135-145); TOTAL CARBON DIOXIDE 20.4 MMOL/L (24-32); TOTAL PROTEIN 8.8 G/DL (6.4-8.2); eCRCL 83 ML/MIN; eGFR 86 ML/MIN
[2023-01-20] MEDS ORDERED: CEPH-585 PO (13:50)
[2023-01-20] MEDS ORDERED: SULF1TAB49 PO (13:50)
== END 2023-01-20 14:07 | disposition home or self-care (01) ==
LOC: ER 09:46
DX: T81.89XA Other complications of procedures, not elsewhere classified, initial encounter (principal); L03.311 Cellulitis of abdominal wall; I10 Essential (primary) hypertension; Z87.19 Personal history of other diseases of the digestive system; Z72.89 Other problems related to lifestyle; Z98.890 Other specified postprocedural states; Z79.2 Long term (current) use of antibiotics; Z79.899 Other long term (current) drug therapy; X58.XXXA Exposure to other specified factors, initial encounter; Y93.89 Activity, other specified; Y92.89 Other specified places as the place of occurrence of the external cause; Y99.8 Other external cause status
CPT/HCPCS: 36415; 74177; 80053; 83605; 85025; 87040; 99285; J3490; J7030; Q9967; A6258

== ENCOUNTER 2023-06-19 14:32 | Inpatient (IN) | payer MEDICAID ==
[~2023-06-19] VITALS: Ht 170.2 cm; Wt 96.7 kg
[2023-06-19 15:40] LABS: BASOPHILS % (AUTO) 0.3 % (0-1); EOSINOPHILS # (AUTO) 0.1 X10'3 (0-0.9); EOSINOPHILS % (AUTO) 0.8 % (0-6); HEMATOCRIT 28.9 % (35.0-45.0); HEMOGLOBIN 9.5 g/dl (12.0-16.0); LYMPHOCYTES # (AUTO) 1.5 X10'3 (1.1-4.8); LYMPHOCYTES % (AUTO) 11.2 % (21-51); MEAN CORPUSCULAR HEMOGLOBIN 33.1 PG (27.0-31.0); MEAN CORPUSCULAR VOLUME 100.4 FL (78-98); MEAN PLATELET VOLUME 7.9 FL (7.4-10.4); MONOCYTES # (AUTO) 1.2 X10'3 (0-0.9); MONOCYTES % (AUTO) 8.7 % (2-12); NEUTROPHILS # (AUTO) 10.8 X10'3 (1.8-7.7); PLATELET COUNT 154 X10'3 (140-440); RED BLOOD COUNT 2.88 X10'6 (4.20-5.60); RED CELL DISTRIBUTION WIDTH 16.5 % (11.5-14.5); WHITE BLOOD COUNT 13.7 X10'3 (4.5-11.0)
[2023-06-19 15:50] LABS: ANION GAP 10 (8-16); BLOOD UREA NITROGEN 6 MG/DL (7-18); BUN/CREATININE RATIO 9.7 (10.0-20.0); CHLORIDE 102 MMOL/L (99-107); CREATININE 0.62 MG/DL (0.40-0.90); GLUCOSE 95 MG/DL (70-104); MAGNESIUM 1.6 MG/DL (1.5-2.4); SODIUM 134 MMOL/L (135-145); TOTAL CARBON DIOXIDE 22.4 MMOL/L (24-32); eCRCL 93 ML/MIN; eGFR > 90 ML/MIN
[2023-06-19] MEDS ORDERED: iohexol 300mg/ml 100ml inj. ONE (16:05)
[2023-06-19] MEDS: piperacillin/tazo 3.375gm/50ml 50 ML IV ONE (16:58)
[2023-06-19] MEDS: normal saline 1000ML IV soln IV ONE (16:59)
[2023-06-19] MEDS ORDERED: magnesium Cl slow-release 64mg tablet PO PRN (17:05)
[2023-06-19] MEDS ORDERED: potassium Cl 40MEQ/1/2NS 520ml 520 ML IV PRN (17:05)
[2023-06-19] MEDS ORDERED: potassium Cl 20 mEq SR tablet PO PRN ×2 (17:05)
[2023-06-19] MEDS ORDERED: magnesium 4gm in 100ml NS 100 ML IV PRN (17:05)
[2023-06-19 17:50] LABS: BILIRUBIN,URINE NEGATIVE (Neg); CLARITY,URINE CLEAR (Clear); COLOR,URINE YELLOW (Yellow); GLUCOSE, URINE NEGATIVE (Neg); KETONES,URINE NEGATIVE (Neg); LEUKOCYTE ESTERASE ,URINE NEGATIVE (Neg); NITRITES, URINE NEGATIVE (Neg); OCCULT BLOOD,URINE MODERATE (Neg); PROTEIN,URINE NEGATIVE (Neg)
[2023-06-19] MEDS ORDERED: LORazepam 1 MG tablet PO PRN (17:50)
[2023-06-19] MEDS ORDERED: haloperidol 5mg tablet PO PRN (17:50)
[2023-06-19] MEDS ORDERED: haloperidol lactate 5mg/ml inj IM PRN (17:50)
[2023-06-19 17:58] LABS: UA COLLECTION TYPE CLN CATCH MIDSTREAM
[2023-06-19 18:07] LABS: SQUAMOUS EPITHELIAL CELL,UR FEW /LPF (FEW)
[2023-06-19 18:08] LABS: BACTERIA,URINE FEW /HPF (Neg); WBC,URINE 0-4 /HPF (0-4)
[2023-06-19] MEDS: vancomycin/NS 1 GM ADD-VANTAGE 250 ML X 1 DOSE IV ONE (18:11)
[2023-06-19 18:32] LABS: ETHANOL < 10 MG/DL (<10)
[2023-06-19 18:52] LABS: URINE AMPHETAMINE SCREEN NEGATIVE (Neg); URINE BARBITUATE SCREEN NEGATIVE (Neg); URINE BENZODIAZEPINES SCREEN NEGATIVE (Neg); URINE CANNABINOID SCREEN POSITIVE (Neg); URINE COCAINE SCREEN NEGATIVE (Neg); URINE METHADONE SCREEN NEGATIVE (Neg); URINE OPIATE SCREEN NEGATIVE (Neg); URINE PHENCYCLIDINE SCREEN NEGATIVE (Neg)
[2023-06-19 19:15] VITALS: BP 118/61; PULSE 66; RESP 18; TEMP 99.4; O2SAT 97
[2023-06-19] MEDS ORDERED: gabapentin 100mg capsule PO PRN (19:45)
[2023-06-19 20:00] VITALS: RESP 18; O2SAT 97
[2023-06-19] MEDS: normal saline 1000ml 1,000 ML IV SCH (20:40)
[2023-06-19] MEDS: heparin, porcine 5000 units/ml vial SQ SCH (20:45)
[2023-06-19] MEDS: metoprolol succinate 25mg (24-HOUR) SR. Tablet PO SCH (20:47)
[2023-06-19 22:00] VITALS: BP 103/73; PULSE 69; RESP 18; TEMP 97.8; O2SAT 96
[2023-06-20] VITALS (28 sets, daily range): BP systolic 84–142; BP diastolic 43–79; PULSE 53–84; RESP 12–18; TEMP 97.5–98.2; O2SAT 94–100
[2023-06-20] MEDS: acetaminophen 325mg tablet PO SCH
[2023-06-20] MEDS: traMADol 50MG tablet PO PRN (05:18)
[2023-06-20 05:49] LABS: BASOPHILS % (AUTO) 0.2 % (0-1); EOSINOPHILS # (AUTO) 0.1 X10'3 (0-0.9); EOSINOPHILS % (AUTO) 0.9 % (0-6); HEMATOCRIT 23.8 % (35.0-45.0); LYMPHOCYTES # (AUTO) 2.3 X10'3 (1.1-4.8); LYMPHOCYTES % (AUTO) 20.7 % (21-51); MEAN CORPUSCULAR HEMOGLOBIN 32.6 PG (27.0-31.0); MEAN CORPUSCULAR HGB CONC 33.4 g/dL (33.0-36.5); MEAN CORPUSCULAR VOLUME 97.8 FL (78-98); MEAN PLATELET VOLUME 8.6 FL (7.4-10.4); MONOCYTES # (AUTO) 1.1 X10'3 (0-0.9); MONOCYTES % (AUTO) 9.5 % (2-12); NEUTROPHILS # (AUTO) 7.7 X10'3 (1.8-7.7); NEUTROPHILS % (AUTO) 68.7 % (42-75); PLATELET COUNT 125 X10'3 (140-440); RED BLOOD COUNT 2.44 X10'6 (4.20-5.60); RED CELL DISTRIBUTION WIDTH 15.7 % (11.5-14.5); WHITE BLOOD COUNT 11.2 X10'3 (4.5-11.0)
[2023-06-20 05:53] LABS: ALANINE AMINOTRANSFERASE 19 U/L (12-78); ALBUMIN 1.8 G/DL (3.4-5.0); ALBUMIN/GLOBULIN RATIO 0.5 (1.1-1.5); ALKALINE PHOSPHATASE 183 IU/L (46-116); ANION GAP 9 (8-16); ASPARTATE AMINO TRANSFERASE 23 U/L (10-37); BILIRUBIN,TOTAL 1.1 MG/DL (0.1-1.0); BLOOD UREA NITROGEN 5 MG/DL (7-18); BUN/CREATININE RATIO 8.9 (10.0-20.0); CALCIUM 7.4 MG/DL (8.5-10.1); CHLORIDE 105 MMOL/L (99-107); CREATININE 0.56 MG/DL (0.40-0.90); GLUCOSE 85 MG/DL (70-104); LIPASE 13 U/L (16-77); MAGNESIUM 1.6 MG/DL (1.5-2.4); SODIUM 137 MMOL/L (135-145); TOTAL CARBON DIOXIDE 22.8 MMOL/L (24-32); TOTAL PROTEIN 5.7 G/DL (6.4-8.2); eCRCL 103 ML/MIN; eGFR > 90 ML/MIN
[2023-06-20] MEDS: amLODIPine 5mg tablet PO SCH (08:00)
[2023-06-20] MEDS: HYDROchlorothiazide 25mg tablet PO SCH (08:00)
[2023-06-20] MEDS: lisinopril 20mg tablet PO SCH (08:00)
[2023-06-20] MEDS: CefTRIAXone 2gm/D5W 50ml BAG 50 ML IV SCH (08:30)
[2023-06-20] MEDS: multivitamins, therapeutics tablet PO SCH (08:38)
[2023-06-20 09:18] LABS: APTT 37 SECONDS (22-32); INR 1.3 INR; PROTHROMBIN TIME 13.9 SECONDS (9.0-12.0)
[2023-06-20] MEDS ORDERED: [UNRECOGNIZED DRUG - OTHER] IV ONE (12:01)
[2023-06-20] MEDS ORDERED: gentamicin 40 MG/1 ML inj ONE (12:01)
[2023-06-20] MEDS ORDERED: sevoflurane 250ml liquid IH ONE (12:08)
[2023-06-20] MEDS ORDERED: midazolam 1 mg/ML 2ml injection ONE (12:16)
[2023-06-20] MEDS ORDERED: fentaNYL /PF 50mcg/ml 5ml ampule ONE (12:17)
[2023-06-20] MEDS ORDERED: rocuronium 10mg/ml inj IV ONE (12:52)
[2023-06-20] MEDS ORDERED: propofol inj 20 ML IV ONE (12:52)
[2023-06-20] MEDS ORDERED: LIDOcaine 2% (20mg/ml) 5ml vial ONE (12:52)
[2023-06-20] MEDS ORDERED: ceFAZolin 1000mg inj ONE ×2 (12:52)
[2023-06-20] MEDS ORDERED: morphine 10mg/ml inj. ONE (14:51)
[2023-06-20] MEDS ORDERED: labetalol 20mg/4ml (5mg/ml) syringe IV PRN (15:00)
[2023-06-20] MEDS ORDERED: meperidine/PF 25mg/ml syringe IV PRN ×3 (15:00)
[2023-06-20] MEDS ORDERED: enalaprilat dihydrate 2.5mg/2ml vial IV PRN (15:00)
[2023-06-20] MEDS ORDERED: morphine 4 MG/ML inj SYRINge IV PRN (15:00)
[2023-06-20] MEDS ORDERED: ondansetron/PF 4mg/2ml inj IV PRN (15:00)
[2023-06-20] MEDS ORDERED: morphine 2 MG/ML inj. syringe IV PRN (15:00)
[2023-06-20] MEDS ORDERED: proCHLORperazine 10 MG/2 ml inj IV PRN (15:00)
[2023-06-20] MEDS: propofol 1000mg/100ml bottle 100 ML IV ONE (15:17)
[2023-06-20] MEDS: propofol 1000mg/100ml bottle 100 ML IV SCH (15:48)
[2023-06-20] MEDS: FENTANYL-0.9 % NACL/PF 100 ML IV SCH (15:51)
[2023-06-20 16:09] LABS: ABG BASE EXCESS -5.9 mmol/L (-2.0-2.0); ABG HCO3 17.9 mmol/L (22.0-26.0); ABG OXYGEN SATURATION 98.6 % (94-97); ABG PCO2 (T) 28.2 mmHg (32.0-45.0); ABG PH (T) 7.416 (7.350-7.450); ABG PO2 (T) 110.2 mmHg (75.0-100.0); ALLEN'S TEST POSITIVE; FCOHb 0.6 % (0.0-3.9); FHHb 1.4 % (0.0-5.0); FMetHb 0.3 % (0.0-1.5); FO2Hb 97.7 % (94-97); MODE VENT - SIMV/VC; PEEP 5 cm H2O; RESPIRATORY RATE 12 b/min; TIDAL VOLUME 650 mL; TOTAL HEMOGLOBIN 10.2 G/dl (12.0-16.0)
[2023-06-20] MEDS: ringers solution, lacted 1,000 ML IV SCH (16:38)
[2023-06-20 18:04] LABS: BASOPHILS % (AUTO) 0.1 % (0-1); EOSINOPHILS % (AUTO) 0.1 % (0-6); HEMATOCRIT 28.4 % (35.0-45.0); HEMOGLOBIN 9.5 g/dl (12.0-16.0); LYMPHOCYTES # (AUTO) 1.6 X10'3 (1.1-4.8); LYMPHOCYTES % (AUTO) 7.3 % (21-51); MEAN CORPUSCULAR HEMOGLOBIN 31.7 PG (27.0-31.0); MEAN CORPUSCULAR HGB CONC 33.3 g/dL (33.0-36.5); MEAN PLATELET VOLUME 9.4 FL (7.4-10.4); MONOCYTES # (AUTO) 1.1 X10'3 (0-0.9); MONOCYTES % (AUTO) 5.2 % (2-12); NEUTROPHILS # (AUTO) 18.8 X10'3 (1.8-7.7); NEUTROPHILS % (AUTO) 87.3 % (42-75); PLATELET COUNT 201 X10'3 (140-440); RED BLOOD COUNT 2.99 X10'6 (4.20-5.60); RED CELL DISTRIBUTION WIDTH 16.1 % (11.5-14.5); WHITE BLOOD COUNT 21.6 X10'3 (4.5-11.0)
[2023-06-20 18:15] LABS: ALANINE AMINOTRANSFERASE 10 U/L (12-78); ALBUMIN 1.6 G/DL (3.4-5.0); ALBUMIN/GLOBULIN RATIO 0.4 (1.1-1.5); ALKALINE PHOSPHATASE 163 IU/L (46-116); ANION GAP 7 (8-16); ASPARTATE AMINO TRANSFERASE 20 U/L (10-37); BILIRUBIN,TOTAL 2.8 MG/DL (0.1-1.0); BLOOD UREA NITROGEN 7 MG/DL (7-18); CALCIUM 7.6 MG/DL (8.5-10.1); CHLORIDE 106 MMOL/L (99-107); GLUCOSE 155 MG/DL (70-104); POTASSIUM 4.3 MMOL/L (3.5-5.1); SODIUM 135 MMOL/L (135-145); TOTAL CARBON DIOXIDE 21.9 MMOL/L (24-32); TOTAL PROTEIN 5.6 G/DL (6.4-8.2); eCRCL 82 ML/MIN; eGFR 85 ML/MIN
[2023-06-20] MEDS: piperacillin/tazo 3.375gm/50ml 50 ML IV SCH (19:08)
[2023-06-20] MEDS: albumin (Human) 5% 250ml 250 ML IV ONE ×4 (21:22→22:56)
[2023-06-21] VITALS (48 sets, daily range): BP systolic 78–130; BP diastolic 39–78; PULSE 44–68; RESP 8–15; TEMP 95.9–98.1; O2SAT 90–100
[2023-06-21 02:49] LABS: BASOPHILS % (AUTO) 0.1 % (0-1); EOSINOPHILS % (AUTO) 0 % (0-6); LYMPHOCYTES # (AUTO) 1.2 X10'3 (1.1-4.8); LYMPHOCYTES % (AUTO) 14.8 % (21-51); MEAN CORPUSCULAR HEMOGLOBIN 32.2 PG (27.0-31.0); MEAN CORPUSCULAR HGB CONC 33.7 g/dL (33.0-36.5); MEAN CORPUSCULAR VOLUME 95.4 FL (78-98); MEAN PLATELET VOLUME 7.8 FL (7.4-10.4); MONOCYTES # (AUTO) 0.5 X10'3 (0-0.9); MONOCYTES % (AUTO) 6.4 % (2-12); NEUTROPHILS # (AUTO) 6.2 X10'3 (1.8-7.7); NEUTROPHILS % (AUTO) 78.7 % (42-75); PLATELET COUNT 102 X10'3 (140-440); RED CELL DISTRIBUTION WIDTH 15.9 % (11.5-14.5); WHITE BLOOD COUNT 7.9 X10'3 (4.5-11.0)
[2023-06-21 02:58] LABS: HEMATOCRIT 19.1 % (35.0-45.0); HEMOGLOBIN 6.4 g/dl (12.0-16.0)
[2023-06-21 03:15] LABS: ALANINE AMINOTRANSFERASE 12 U/L (12-78); ALBUMIN 2.1 G/DL (3.4-5.0); ALBUMIN/GLOBULIN RATIO 0.7 (1.1-1.5); ALKALINE PHOSPHATASE 108 IU/L (46-116); ANION GAP 12 (8-16); ASPARTATE AMINO TRANSFERASE 16 U/L (10-37); BILIRUBIN,TOTAL 2.1 MG/DL (0.1-1.0); BLOOD UREA NITROGEN 9 MG/DL (7-18); BUN/CREATININE RATIO 13.6 (10.0-20.0); CALCIUM 7.1 MG/DL (8.5-10.1); CHLORIDE 106 MMOL/L (99-107); CREATININE 0.66 MG/DL (0.40-0.90); GLUCOSE 139 MG/DL (70-104); LIPASE 22 U/L (16-77); MAGNESIUM 1.5 MG/DL (1.5-2.4); PHOSPHORUS 3.7 MG/DL (2.3-4.5); SODIUM 137 MMOL/L (135-145); TOTAL PROTEIN 5.2 G/DL (6.4-8.2); eCRCL 87 ML/MIN; eGFR > 90 ML/MIN
[2023-06-21 03:17] LABS: ABG BASE EXCESS -4.3 mmol/L (-2.0-2.0); ABG HCO3 20.1 mmol/L (22.0-26.0); ABG OXYGEN SATURATION 96.1 % (94-97); ABG PCO2 (T) 32.5 mmHg (32.0-45.0); ABG PH (T) 7.406 (7.350-7.450); ABG PO2 (T) 80.3 mmHg (75.0-100.0); FCOHb 0.9 % (0.0-3.9); FHHb 3.9 % (0.0-5.0); FMetHb 0.3 % (0.0-1.5); FO2Hb 94.9 % (94-97); MODE VENT - SIMV; PATIENT TEMPERATURE 36.5; PEEP 5 cm H2O; RESPIRATORY RATE 12 b/min; TIDAL VOLUME 650 mL; TOTAL HEMOGLOBIN 7.3 G/dl (12.0-16.0)
[2023-06-21 04:02] LABS: TOTAL CELLS COUNTED 100
[2023-06-21 04:03] LABS: PLATELET ESTIMATE DECREASED
[2023-06-21 04:06] LABS: POIKILOCYTOSIS FEW; SCHISTOCYTES FEW
[2023-06-21] MEDS: LORazepam 2 mg/ml vial IV PRN (05:40)
[2023-06-21 10:31] LABS: ABG BASE EXCESS -8.4 mmol/L (-2.0-2.0); ABG HCO3 16.3 mmol/L (22.0-26.0); ABG OXYGEN SATURATION 99.8 % (94-97); ABG PCO2 (T) 27.9 mmHg (32.0-45.0); ABG PH (T) 7.377 (7.350-7.450); ABG PO2 (T) 368.9 mmHg (75.0-100.0); FCOHb 0.5 % (0.0-3.9); FHHb 0.2 % (0.0-5.0); FMetHb 0.3 % (0.0-1.5); MODE VENT - SIMV; PATIENT TEMPERATURE 35.4; PEEP 5 cm H2O; RESPIRATORY RATE 12 b/min; TIDAL VOLUME 650 mL; TOTAL HEMOGLOBIN 7.6 G/dl (12.0-16.0)
[2023-06-21] MEDS: CALCIUM GLUC 1gm/50ml NACL,iso 50 ML IV PRN (10:55)
[2023-06-21] MEDS: DESMOPRESSIN IV ONE (11:01)
[2023-06-21] MEDS: NORMAL SALINE IV ONE (11:01)
[2023-06-21] MEDS: sodium bicarbonate (8.4%) 1 mEq/ml syringe IV ONE (11:10)
[2023-06-21] MEDS: midazolam 1 mg/ML 2ml injection IV ONE (11:23)
[2023-06-21] MEDS: MIDAZOLAM IN NACL,ISO-OSMOT/PF 100 ML IV SCH (12:46)
[2023-06-21 13:20] LABS: HEMATOCRIT 22.7 % (35.0-45.0); HEMOGLOBIN 7.5 g/dl (12.0-16.0); MEAN CORPUSCULAR HEMOGLOBIN 30.7 PG (27.0-31.0); MEAN CORPUSCULAR HGB CONC 33.1 g/dL (33.0-36.5); MEAN CORPUSCULAR VOLUME 92.7 FL (78-98); MEAN PLATELET VOLUME 7.7 FL (7.4-10.4); PLATELET COUNT 121 X10'3 (140-440); RED BLOOD COUNT 2.45 X10'6 (4.20-5.60); RED CELL DISTRIBUTION WIDTH 16.4 % (11.5-14.5); WHITE BLOOD COUNT 18.6 X10'3 (4.5-11.0)
[2023-06-21 13:45] LABS: ALANINE AMINOTRANSFERASE 17 U/L (12-78); ALBUMIN 2.4 G/DL (3.4-5.0); ALBUMIN/GLOBULIN RATIO 0.7 (1.1-1.5); ALKALINE PHOSPHATASE 97 IU/L (46-116); ANION GAP 9 (8-16); ASPARTATE AMINO TRANSFERASE 20 U/L (10-37); BILIRUBIN,TOTAL 1.8 MG/DL (0.1-1.0); BLOOD UREA NITROGEN 11 MG/DL (7-18); BUN/CREATININE RATIO 15.5 (10.0-20.0); CALCIUM 7.2 MG/DL (8.5-10.1); CHLORIDE 106 MMOL/L (99-107); CREATININE 0.71 MG/DL (0.40-0.90); GLUCOSE 146 MG/DL (70-104); MAGNESIUM 1.6 MG/DL (1.5-2.4); PHOSPHORUS 3.9 MG/DL (2.3-4.5); POTASSIUM 3.8 MMOL/L (3.5-5.1); SODIUM 136 MMOL/L (135-145); TOTAL CARBON DIOXIDE 21.3 MMOL/L (24-32); TOTAL PROTEIN 5.9 G/DL (6.4-8.2); eCRCL 81 ML/MIN; eGFR 84 ML/MIN
[2023-06-21] MEDS ORDERED: GABA300C PO (14:39)
[2023-06-21 16:09] LABS: HEMOGLOBIN 7.7 g/dl (12.0-16.0); MEAN CORPUSCULAR HEMOGLOBIN 30.9 PG (27.0-31.0); MEAN CORPUSCULAR HGB CONC 33.7 g/dL (33.0-36.5); MEAN CORPUSCULAR VOLUME 91.6 FL (78-98); PLATELET COUNT 127 X10'3 (140-440); RED BLOOD COUNT 2.51 X10'6 (4.20-5.60); WHITE BLOOD COUNT 17.6 X10'3 (4.5-11.0)
[2023-06-21] MEDS: ringers solution, lacted 1,000 ML IV SCH (17:01)
[2023-06-21 19:32] LABS: BASOPHILS % (AUTO) 0 % (0-1); EOSINOPHILS % (AUTO) 0 % (0-6); HEMOGLOBIN 7.1 g/dl (12.0-16.0); LYMPHOCYTES # (AUTO) 1.2 X10'3 (1.1-4.8); LYMPHOCYTES % (AUTO) 10.1 % (21-51); MEAN CORPUSCULAR HEMOGLOBIN 31.1 PG (27.0-31.0); MEAN CORPUSCULAR VOLUME 91.6 FL (78-98); MEAN PLATELET VOLUME 7.8 FL (7.4-10.4); MONOCYTES # (AUTO) 0.8 X10'3 (0-0.9); MONOCYTES % (AUTO) 6.4 % (2-12); NEUTROPHILS # (AUTO) 9.9 X10'3 (1.8-7.7); NEUTROPHILS % (AUTO) 83.5 % (42-75); PLATELET COUNT 109 X10'3 (140-440); RED BLOOD COUNT 2.27 X10'6 (4.20-5.60); RED CELL DISTRIBUTION WIDTH 16.7 % (11.5-14.5); WHITE BLOOD COUNT 11.9 X10'3 (4.5-11.0)
[2023-06-21 19:34] LABS: ABG BASE EXCESS -4.5 mmol/L (-2.0-2.0); ABG HCO3 20.3 mmol/L (22.0-26.0); ABG OXYGEN SATURATION 94.9 % (94-97); ABG PCO2 (T) 34.5 mmHg (32.0-45.0); ABG PH (T) 7.383 (7.350-7.450); ABG PO2 (T) 70.9 mmHg (75.0-100.0); FCOHb 0.6 % (0.0-3.9); FHHb 5.1 % (0.0-5.0); FMetHb 0.3 % (0.0-1.5); MODE VENT - SIMV; PATIENT TEMPERATURE 36.3; PEEP 5 cm H2O; RESPIRATORY RATE 12 b/min; TIDAL VOLUME 500 mL; TOTAL HEMOGLOBIN 7.6 G/dl (12.0-16.0)
[2023-06-21 19:35] LABS: HEMATOCRIT 20.8 % (35.0-45.0)
[2023-06-21] MEDS: mineral oil/petrolatum ophthal oint EACHEYE SCH (20:00)
[2023-06-21 20:04] LABS: ALANINE AMINOTRANSFERASE 14 U/L (12-78); ALBUMIN 2.3 G/DL (3.4-5.0); ALBUMIN/GLOBULIN RATIO 0.7 (1.1-1.5); ALKALINE PHOSPHATASE 85 IU/L (46-116); ANION GAP 9 (8-16); ASPARTATE AMINO TRANSFERASE 20 U/L (10-37); BILIRUBIN,TOTAL 1.7 MG/DL (0.1-1.0); BLOOD UREA NITROGEN 11 MG/DL (7-18); BUN/CREATININE RATIO 15.1 (10.0-20.0); CALCIUM 7.5 MG/DL (8.5-10.1); CHLORIDE 107 MMOL/L (99-107); CREATININE 0.73 MG/DL (0.40-0.90); GLUCOSE 128 MG/DL (70-104); MAGNESIUM 1.6 MG/DL (1.5-2.4); PHOSPHORUS 3.8 MG/DL (2.3-4.5); POTASSIUM 3.9 MMOL/L (3.5-5.1); SODIUM 138 MMOL/L (135-145); TOTAL CARBON DIOXIDE 22.3 MMOL/L (24-32); TOTAL PROTEIN 5.6 G/DL (6.4-8.2); eCRCL 79 ML/MIN; eGFR 81 ML/MIN
[2023-06-21] MEDS: NORepinephrine 8mg/ 250ml NS 250 ML IV SCH (20:15)
[2023-06-21] MEDS: atropine 0.1mg/ml 10ml syringe ONE (20:15)
[2023-06-21] MEDS: epiNEPHrine 0.1mg/ml 10ml syringe ONE (20:15)
[2023-06-21] MEDS: DOPamine 400mg/D5W 250ml 250 ML IV SCH (20:16)
[2023-06-21] MEDS: albumin (Human) 5% 250ml 250 ML IV ONE ×2 (20:34)
[2023-06-21 20:44] LABS: APTT 31 SECONDS (22-32); FIBRINOGEN 336 MG/DL (177-424); INR 1.3 INR
[2023-06-21 23:35] LABS: BASOPHILS % (AUTO) 0 % (0-1); EOSINOPHILS % (AUTO) 0 % (0-6); HEMATOCRIT 23.2 % (35.0-45.0); LYMPHOCYTES # (AUTO) 1.3 X10'3 (1.1-4.8); LYMPHOCYTES % (AUTO) 11.5 % (21-51); MEAN CORPUSCULAR HEMOGLOBIN 31.3 PG (27.0-31.0); MEAN CORPUSCULAR HGB CONC 34.6 g/dL (33.0-36.5); MEAN CORPUSCULAR VOLUME 90.5 FL (78-98); MEAN PLATELET VOLUME 7.9 FL (7.4-10.4); MONOCYTES # (AUTO) 0.7 X10'3 (0-0.9); MONOCYTES % (AUTO) 6.4 % (2-12); NEUTROPHILS % (AUTO) 82.1 % (42-75); PLATELET COUNT 108 X10'3 (140-440); RED BLOOD COUNT 2.57 X10'6 (4.20-5.60); RED CELL DISTRIBUTION WIDTH 16.3 % (11.5-14.5)
[2023-06-22] VITALS (33 sets, daily range): BP systolic 106–130; BP diastolic 42–62; PULSE 40–70; RESP 12–14; O2SAT 93–99
[2023-06-22 03:19] LABS: ABG BASE EXCESS -2.5 mmol/L (-2.0-2.0); ABG HCO3 22.4 mmol/L (22.0-26.0); ABG PCO2 (T) 38.5 mmHg (32.0-45.0); ABG PH (T) 7.382 (7.350-7.450); ABG PO2 (T) 63.7 mmHg (75.0-100.0); FCOHb 0.5 % (0.0-3.9); FHHb 6.9 % (0.0-5.0); FMetHb 0.3 % (0.0-1.5); FO2Hb 92.3 % (94-97); MODE VENT - SIMV; PATIENT TEMPERATURE 36.8; PEEP 5 cm H2O; RESPIRATORY RATE 12 b/min; TIDAL VOLUME 500 mL; TOTAL HEMOGLOBIN 8.8 G/dl (12.0-16.0)
[2023-06-22 03:20] LABS: BASOPHILS % (AUTO) 0 % (0-1); EOSINOPHILS % (AUTO) 0 % (0-6); HEMATOCRIT 23.6 % (35.0-45.0); HEMOGLOBIN 8.2 g/dl (12.0-16.0); LYMPHOCYTES # (AUTO) 1.3 X10'3 (1.1-4.8); LYMPHOCYTES % (AUTO) 12.6 % (21-51); MEAN CORPUSCULAR HEMOGLOBIN 31.5 PG (27.0-31.0); MEAN CORPUSCULAR HGB CONC 34.8 g/dL (33.0-36.5); MEAN CORPUSCULAR VOLUME 90.4 FL (78-98); MEAN PLATELET VOLUME 8.1 FL (7.4-10.4); MONOCYTES # (AUTO) 0.7 X10'3 (0-0.9); MONOCYTES % (AUTO) 6.9 % (2-12); NEUTROPHILS # (AUTO) 8.3 X10'3 (1.8-7.7); NEUTROPHILS % (AUTO) 80.5 % (42-75); PLATELET COUNT 110 X10'3 (140-440); RED BLOOD COUNT 2.61 X10'6 (4.20-5.60); RED CELL DISTRIBUTION WIDTH 16.6 % (11.5-14.5); WHITE BLOOD COUNT 10.3 X10'3 (4.5-11.0)
[2023-06-22 04:07] LABS: ALANINE AMINOTRANSFERASE 13 U/L (12-78); ALBUMIN 2.5 G/DL (3.4-5.0); ALBUMIN/GLOBULIN RATIO 0.8 (1.1-1.5); ALKALINE PHOSPHATASE 80 IU/L (46-116); ANION GAP 11 (8-16); ASPARTATE AMINO TRANSFERASE 18 U/L (10-37); BLOOD UREA NITROGEN 10 MG/DL (7-18); BUN/CREATININE RATIO 15.4 (10.0-20.0); CALCIUM 7.7 MG/DL (8.5-10.1); CHLORIDE 107 MMOL/L (99-107); CREATININE 0.65 MG/DL (0.40-0.90); GLUCOSE 114 MG/DL (70-104); MAGNESIUM 1.5 MG/DL (1.5-2.4); POTASSIUM 3.8 MMOL/L (3.5-5.1); SODIUM 140 MMOL/L (135-145); TOTAL CARBON DIOXIDE 22.5 MMOL/L (24-32); TOTAL PROTEIN 5.6 G/DL (6.4-8.2); eCRCL 88 ML/MIN; eGFR > 90 ML/MIN
[2023-06-22] MEDS: magnesium 2GM in 50ml NS 50 ML IV PRN (04:13)
[2023-06-22] MEDS: ringers solution, lacted 1,000 ML IV ONE ×2 (07:22→09:29)
[2023-06-22 12:45] LABS: HEMATOCRIT 23.4 % (35.0-45.0); MEAN CORPUSCULAR HEMOGLOBIN 31.3 PG (27.0-31.0); MEAN CORPUSCULAR HGB CONC 34.3 g/dL (33.0-36.5); MEAN CORPUSCULAR VOLUME 91.2 FL (78-98); MEAN PLATELET VOLUME 8.4 FL (7.4-10.4); PLATELET COUNT 101 X10'3 (140-440); RED BLOOD COUNT 2.56 X10'6 (4.20-5.60); RED CELL DISTRIBUTION WIDTH 16.6 % (11.5-14.5)
[2023-06-22] MEDS: FENTANYL-0.9 % NACL/PF 100 ML IV SCH (20:40)
[2023-06-22] MEDS: MIDAZOLAM IN NACL,ISO-OSMOT/PF 100 ML IV SCH (21:09)
[2023-06-22] MEDS: propofol 1000mg/100ml bottle 100 ML IV SCH (22:26)
[2023-06-22] MEDS: ondansetron/PF 4mg/2ml inj IV PRN (23:05)
[2023-06-23] VITALS (34 sets, daily range): BP systolic 105–129; BP diastolic 41–53; PULSE 44–61; RESP 11–12; O2SAT 95–98
[2023-06-23 02:31] LABS: BASOPHILS % (AUTO) 0.1 % (0-1); EOSINOPHILS % (AUTO) 0.1 % (0-6); HEMATOCRIT 23.8 % (35.0-45.0); HEMOGLOBIN 8.1 g/dl (12.0-16.0); LYMPHOCYTES # (AUTO) 1.9 X10'3 (1.1-4.8); LYMPHOCYTES % (AUTO) 21.5 % (21-51); MEAN CORPUSCULAR HEMOGLOBIN 31.2 PG (27.0-31.0); MEAN CORPUSCULAR VOLUME 91.8 FL (78-98); MEAN PLATELET VOLUME 7.9 FL (7.4-10.4); MONOCYTES # (AUTO) 0.7 X10'3 (0-0.9); MONOCYTES % (AUTO) 8.1 % (2-12); NEUTROPHILS # (AUTO) 6.1 X10'3 (1.8-7.7); NEUTROPHILS % (AUTO) 70.2 % (42-75); PLATELET COUNT 112 X10'3 (140-440); RED BLOOD COUNT 2.59 X10'6 (4.20-5.60); RED CELL DISTRIBUTION WIDTH 16.5 % (11.5-14.5); WHITE BLOOD COUNT 8.7 X10'3 (4.5-11.0)
[2023-06-23 02:41] LABS: ALANINE AMINOTRANSFERASE 12 U/L (12-78); ALBUMIN 2.1 G/DL (3.4-5.0); ALBUMIN/GLOBULIN RATIO 0.7 (1.1-1.5); ALKALINE PHOSPHATASE 85 IU/L (46-116); ANION GAP 8 (8-16); ASPARTATE AMINO TRANSFERASE 20 U/L (10-37); BILIRUBIN,TOTAL 1.3 MG/DL (0.1-1.0); BLOOD UREA NITROGEN 8 MG/DL (7-18); BUN/CREATININE RATIO 12.7 (10.0-20.0); CALCIUM 7.7 MG/DL (8.5-10.1); CHLORIDE 108 MMOL/L (99-107); CREATININE 0.63 MG/DL (0.40-0.90); GLUCOSE 91 MG/DL (70-104); MAGNESIUM 1.7 MG/DL (1.5-2.4); PHOSPHORUS 2.5 MG/DL (2.3-4.5); POTASSIUM 3.8 MMOL/L (3.5-5.1); SODIUM 140 MMOL/L (135-145); TOTAL CARBON DIOXIDE 23.7 MMOL/L (24-32); TOTAL PROTEIN 5.3 G/DL (6.4-8.2); TRIGLYCERIDES 60 MG/DL (20-135); eCRCL 91 ML/MIN; eGFR > 90 ML/MIN
[2023-06-23 02:54] LABS: ABG BASE EXCESS -0.4 mmol/L (-2.0-2.0); ABG HCO3 24.2 mmol/L (22.0-26.0); ABG OXYGEN SATURATION 96.2 % (94-97); ABG PH (T) 7.419 (7.350-7.450); ABG PO2 (T) 75.7 mmHg (75.0-100.0); FCOHb 0.1 % (0.0-3.9); FHHb 3.8 % (0.0-5.0); FMetHb 0.3 % (0.0-1.5); FO2Hb 95.8 % (94-97); MODE VENT - SIMV; PATIENT TEMPERATURE 36.5; PEEP 5 cm H2O; RESPIRATORY RATE 12 b/min; TIDAL VOLUME 500 mL; TOTAL HEMOGLOBIN 8.7 G/dl (12.0-16.0)
[2023-06-23] MEDS: thiamine 100mg tablet PO SCH (07:12)
[2023-06-23] MEDS: vancomycin 1,750 MG in NS 350ml IV soln IV ONE (08:00)
[2023-06-23] MEDS: FENTANYL-0.9 % NACL/PF 100 ML IV SCH (10:19)
[2023-06-23] MEDS: propofol 1000mg/100ml bottle 100 ML IV SCH (12:29)
[2023-06-23] MEDS: MIDAZOLAM IN NACL,ISO-OSMOT/PF 100 ML IV SCH (16:07)
[2023-06-23] MEDS: vancomycin/NS 1 GM ADD-VANTAGE 250 ML IV SCH (16:10)
[2023-06-24] VITALS (39 sets, daily range): BP systolic 88–133; BP diastolic 37–69; PULSE 45–119; RESP 11–29; O2SAT 84–98
[2023-06-24 02:34] LABS: BASOPHILS % (AUTO) 0.1 % (0-1); EOSINOPHILS # (AUTO) 0.1 X10'3 (0-0.9); EOSINOPHILS % (AUTO) 1.2 % (0-6); HEMATOCRIT 25.5 % (35.0-45.0); HEMOGLOBIN 8.5 g/dl (12.0-16.0); LYMPHOCYTES # (AUTO) 1.7 X10'3 (1.1-4.8); LYMPHOCYTES % (AUTO) 23.9 % (21-51); MEAN CORPUSCULAR HGB CONC 33.3 g/dL (33.0-36.5); MEAN PLATELET VOLUME 7.6 FL (7.4-10.4); MONOCYTES # (AUTO) 0.5 X10'3 (0-0.9); MONOCYTES % (AUTO) 6.5 % (2-12); NEUTROPHILS % (AUTO) 68.3 % (42-75); PLATELET COUNT 110 X10'3 (140-440); RED BLOOD COUNT 2.74 X10'6 (4.20-5.60); RED CELL DISTRIBUTION WIDTH 16.5 % (11.5-14.5); WHITE BLOOD COUNT 7.3 X10'3 (4.5-11.0)
[2023-06-24 02:48] LABS: ALANINE AMINOTRANSFERASE 6 U/L (12-78); ALBUMIN 1.8 G/DL (3.4-5.0); ALBUMIN/GLOBULIN RATIO 0.6 (1.1-1.5); ALKALINE PHOSPHATASE 79 IU/L (46-116); ANION GAP 7 (8-16); ASPARTATE AMINO TRANSFERASE 18 U/L (10-37); BILIRUBIN,TOTAL 1.3 MG/DL (0.1-1.0); BLOOD UREA NITROGEN 5 MG/DL (7-18); BUN/CREATININE RATIO 11.1 (10.0-20.0); CALCIUM 7.4 MG/DL (8.5-10.1); CHLORIDE 112 MMOL/L (99-107); CREATININE 0.45 MG/DL (0.40-0.90); GLUCOSE 91 MG/DL (70-104); MAGNESIUM 1.5 MG/DL (1.5-2.4); POTASSIUM 3.3 MMOL/L (3.5-5.1); PREALBUMIN 9.5 MG/DL (19-36); SODIUM 145 MMOL/L (135-145); TOTAL CARBON DIOXIDE 26.3 MMOL/L (24-32); TOTAL PROTEIN 4.9 G/DL (6.4-8.2); eCRCL 128 ML/MIN; eGFR > 90 ML/MIN
[2023-06-24] MEDS ORDERED: Neutra Phos packet PO PRN (03:40)
[2023-06-24] MEDS ORDERED: potassium CL 10mEq/100ml bag 100 ML IV PRN (03:40)
[2023-06-24] MEDS ORDERED: potassium Cl 40MEQ/270ML bag 250 ML IV PRN (03:40)
[2023-06-24] MEDS ORDERED: potassium Cl 20 mEq SR tablet PO PRN (03:40)
[2023-06-24] MEDS ORDERED: sodium phosphate inj. 30 MMOL in dextrose 5%-water 250 ML IV PRN (03:40)
[2023-06-24 03:50] LABS: ABG BASE EXCESS -2.1 mmol/L (-2.0-2.0); ABG HCO3 21.6 mmol/L (22.0-26.0); ABG OXYGEN SATURATION 93.7 % (94-97); ABG PCO2 (T) 30.9 mmHg (32.0-45.0); ABG PH (T) 7.457 (7.350-7.450); ABG PO2 (T) 58.8 mmHg (75.0-100.0); FCOHb 0.2 % (0.0-3.9); FHHb 6.3 % (0.0-5.0); FMetHb 0.3 % (0.0-1.5); FO2Hb 93.2 % (94-97); MODE AC/VC; PATIENT TEMPERATURE 35.8; PEEP 5 cm H2O; RESPIRATORY RATE 12 b/min; TIDAL VOLUME 500 mL; TOTAL HEMOGLOBIN 9.1 G/dl (12.0-16.0)
[2023-06-24] MEDS: magnesium 4gm in 100ml NS 100 ML IV PRN (04:03)
[2023-06-24] MEDS: potassium Cl 20mEq/100mL bag 100 ML IV PRN (04:03)
[2023-06-24] MEDS: sodium phosphate inj. 15 MMOL in dextrose 5%-water 250 ML IV PRN (04:18)
[2023-06-24] MEDS: VANCOMYCIN LEVEL IV ONE (06:46)
[2023-06-24] MEDS: folic acid 1mg tablet PO SCH (07:04)
[2023-06-24] MEDS: magnesium 2GM in 50ml NS 50 ML IV PRN (08:10)
[2023-06-24] MEDS: dexmedetomidin/NS 400mcg/100ml 100 ML IV SCH (13:02)
[2023-06-24 13:53] LABS: EOSINOPHILS # (AUTO) 0.3 X10'3 (0-0.9); EOSINOPHILS % (AUTO) 1.3 % (0-6); HEMATOCRIT 32.9 % (35.0-45.0); HEMOGLOBIN 10.7 g/dl (12.0-16.0); MONOCYTES # (AUTO) 1.6 X10'3 (0-0.9)
[2023-06-24] MEDS: ringers solution, lacted 1,000 ML IV ONE ×2 (13:54)
[2023-06-24 13:55] LABS: BASOPHILS % (AUTO) 0.2 % (0-1); LYMPHOCYTES # (AUTO) 2.6 X10'3 (1.1-4.8); LYMPHOCYTES % (AUTO) 11.4 % (21-51); MEAN CORPUSCULAR HEMOGLOBIN 30.8 PG (27.0-31.0); MEAN CORPUSCULAR HGB CONC 32.6 g/dL (33.0-36.5); MEAN CORPUSCULAR VOLUME 94.5 FL (78-98); MEAN PLATELET VOLUME 9.6 FL (7.4-10.4); NEUTROPHILS # (AUTO) 18.7 X10'3 (1.8-7.7); NEUTROPHILS % (AUTO) 80.1 % (42-75); PLATELET COUNT 148 X10'3 (140-440); RED BLOOD COUNT 3.48 X10'6 (4.20-5.60); RED CELL DISTRIBUTION WIDTH 16.3 % (11.5-14.5); WHITE BLOOD COUNT 23.3 X10'3 (4.5-11.0)
[2023-06-24 14:00] LABS: MAGNESIUM 2.6 MG/DL (1.5-2.4)
[2023-06-24 14:29] LABS: POTASSIUM 4.4 MMOL/L (3.5-5.1)
[2023-06-24 15:07] LABS: TOTAL CELLS COUNTED 100
[2023-06-24 15:08] LABS: ANISOCYTOSIS 1+; PLATELET ESTIMATE NORMAL
[2023-06-24 15:17] LABS: ALBUMIN 2.2 G/DL (3.4-5.0); ANION GAP 10 (8-16); BLOOD UREA NITROGEN 6 MG/DL (7-18); CHLORIDE 109 MMOL/L (99-107); CREATININE 0.67 MG/DL (0.40-0.90); GLUCOSE 101 MG/DL (70-104); SODIUM 142 MMOL/L (135-145); TOTAL CARBON DIOXIDE 22.6 MMOL/L (24-32); eCRCL 86 ML/MIN; eGFR 89 ML/MIN
[2023-06-24] MEDS: ipratropium/albuterol 3ml nebule NEB SCH (15:23)
[2023-06-24] MEDS: acetaminophen 325mg tablet PO PRN (18:36)
[2023-06-24 20:11] LABS: BILIRUBIN,URINE SMALL (Neg); CLARITY,URINE SLIGHTLY CLOUDY (Clear); COLOR,URINE YELLOW (Yellow); GLUCOSE, URINE NEGATIVE (Neg); KETONES,URINE TRACE mg/dl (Neg); LEUKOCYTE ESTERASE ,URINE NEGATIVE (Neg); NITRITES, URINE NEGATIVE (Neg); OCCULT BLOOD,URINE NEGATIVE (Neg); PROTEIN,URINE TRACE mg/dl (Neg); UROBILINOGEN,URINE 0.2 E.U/dL (0.2-1.0)
[2023-06-24 20:32] LABS: UA COLLECTION TYPE FOLEY CATH
[2023-06-24 20:34] LABS: WBC,URINE 0-4 /HPF (0-4)
[2023-06-24 20:35] LABS: BACTERIA,URINE 2+ /HPF (Neg); MUCUS STRANDS FEW /LPF (Neg); RENAL CELLS, URINE MODERATE /HPF; SQUAMOUS EPITHELIAL CELL,UR FEW /LPF (FEW); TRANSITIONAL EPI CELLS,URINE FEW /HPF
[2023-06-24 20:36] LABS: AMORPHOUS URATES 1+
[2023-06-25] VITALS (49 sets, daily range): BP systolic 90–149; BP diastolic 41–93; PULSE 66–120; RESP 12–15; O2SAT 91–96
[2023-06-25 02:20] LABS: BASOPHILS # (AUTO) 0.1 X10'3 (0-0.2); BASOPHILS % (AUTO) 0.2 % (0-1); EOSINOPHILS # (AUTO) 0.7 X10'3 (0-0.9); EOSINOPHILS % (AUTO) 1.7 % (0-6); HEMATOCRIT 29.2 % (35.0-45.0); HEMOGLOBIN 9.5 g/dl (12.0-16.0); LYMPHOCYTES # (AUTO) 6.4 X10'3 (1.1-4.8); LYMPHOCYTES % (AUTO) 16.1 % (21-51); MEAN CORPUSCULAR HEMOGLOBIN 30.7 PG (27.0-31.0); MEAN CORPUSCULAR HGB CONC 32.5 g/dL (33.0-36.5); MEAN CORPUSCULAR VOLUME 94.5 FL (78-98); MEAN PLATELET VOLUME 6.9 FL (7.4-10.4); MONOCYTES # (AUTO) 3.2 X10'3 (0-0.9); MONOCYTES % (AUTO) 8.1 % (2-12); NEUTROPHILS # (AUTO) 29.4 X10'3 (1.8-7.7); NEUTROPHILS % (AUTO) 73.9 % (42-75); PLATELET COUNT 287 X10'3 (140-440); RED BLOOD COUNT 3.09 X10'6 (4.20-5.60); RED CELL DISTRIBUTION WIDTH 16.8 % (11.5-14.5)
[2023-06-25 02:35] LABS: ALANINE AMINOTRANSFERASE 8 U/L (12-78); ALBUMIN/GLOBULIN RATIO 0.6 (1.1-1.5); ALKALINE PHOSPHATASE 116 IU/L (46-116); ANION GAP 7 (8-16); ASPARTATE AMINO TRANSFERASE 24 U/L (10-37); BILIRUBIN,TOTAL 1.6 MG/DL (0.1-1.0); BLOOD UREA NITROGEN 7 MG/DL (7-18); BUN/CREATININE RATIO 6.4 (10.0-20.0); CALCIUM 7.6 MG/DL (8.5-10.1); CHLORIDE 110 MMOL/L (99-107); CREATININE 1.09 MG/DL (0.40-0.90); GLUCOSE 121 MG/DL (70-104); MAGNESIUM 2.2 MG/DL (1.5-2.4); PHOSPHORUS 3.3 MG/DL (2.3-4.5); POTASSIUM 4.1 MMOL/L (3.5-5.1); SODIUM 140 MMOL/L (135-145); TOTAL CARBON DIOXIDE 23.5 MMOL/L (24-32); TOTAL PROTEIN 5.5 G/DL (6.4-8.2); eCRCL 53 ML/MIN; eGFR 51 ML/MIN
[2023-06-25 02:48] LABS: WHITE BLOOD COUNT 39.7 X10'3 (4.5-11.0)
[2023-06-25 02:58] LABS: NUCLEATED RED BLOOD CELLS 2 /100WBC (0-0); TOTAL CELLS COUNTED 100
[2023-06-25 02:59] LABS: ABG BASE EXCESS -4.8 mmol/L (-2.0-2.0); ABG HCO3 21.6 mmol/L (22.0-26.0); ABG OXYGEN SATURATION 91.1 % (94-97); ABG PCO2 (T) 46.4 mmHg (32.0-45.0); ABG PH (T) 7.287 (7.350-7.450); ABG PO2 (T) 62.9 mmHg (75.0-100.0); FCOHb 0.3 % (0.0-3.9); FHHb 8.8 % (0.0-5.0); FMetHb 0.3 % (0.0-1.5); FO2Hb 90.6 % (94-97); MODE COOL AEROSOL; PATIENT TEMPERATURE 37.2; PEEP 5 cm H2O; RESPIRATORY RATE 12 b/min; TIDAL VOLUME 500 mL; TOTAL HEMOGLOBIN 10.6 G/dl (12.0-16.0)
[2023-06-25 02:59] LABS: ANISOCYTOSIS 1+; PLATELET ESTIMATE NORMAL; POLYCHROMASIA 1+; SMUDGE CELLS 1+; STOMATOCYTES FEW; TEAR DROP CELLS FEW
[2023-06-25] MEDS: albumin (Human) 5% 250ml 250 ML IV ONE ×2 (07:51→08:07)
[2023-06-25] MEDS: furosemide 10 MG/1 ML 10ml inj IV ONE (08:32)
[2023-06-25] MEDS: fluconazole/NS 400mg/200ml bag 200 ML IV SCH (10:23)
[2023-06-25] MEDS: LIDOcaine 1% (10mg/ml) 2ml vial ONE (10:56)
[2023-06-25] MEDS: albumin (human) 25% 100 ML IV solution IV SCH (15:49)
[2023-06-25] MEDS: MEROPENEM 1GM/NS 100ML IVPB IV SCH (16:30)
[2023-06-25] MEDS ORDERED: magnesium hydroxide 30ml (MOM) UD suspension PO PRN (17:10)
[2023-06-25 19:32] LABS: ALANINE AMINOTRANSFERASE 8 U/L (12-78); ALBUMIN 2.1 G/DL (3.4-5.0); ALBUMIN/GLOBULIN RATIO 0.7 (1.1-1.5); ALKALINE PHOSPHATASE 94 IU/L (46-116); ANION GAP 6 (8-16); ASPARTATE AMINO TRANSFERASE 20 U/L (10-37); BILIRUBIN,TOTAL 1.6 MG/DL (0.1-1.0); BLOOD UREA NITROGEN 10 MG/DL (7-18); BUN/CREATININE RATIO 7.7 (10.0-20.0); CALCIUM 7.5 MG/DL (8.5-10.1); CHLORIDE 110 MMOL/L (99-107); GLUCOSE 121 MG/DL (70-104); MAGNESIUM 1.8 MG/DL (1.5-2.4); POTASSIUM 3.5 MMOL/L (3.5-5.1); SODIUM 141 MMOL/L (135-145); TOTAL CARBON DIOXIDE 25.2 MMOL/L (24-32); TOTAL PROTEIN 5.2 G/DL (6.4-8.2); eCRCL 44 ML/MIN; eGFR 42 ML/MIN
[2023-06-25] MEDS: vancomycin/NS 1 GM ADD-VANTAGE 250 ML IV SCH (21:20)
[2023-06-25] MEDS: enoxaparin 40mg/0.4ml syringe SUBCUT SCH (21:20)
[2023-06-26] VITALS (32 sets, daily range): BP systolic 105–168; BP diastolic 50–89; PULSE 60–94; RESP 13–15; O2SAT 92–97
[2023-06-26 02:31] LABS: BASOPHILS % (AUTO) 0.3 % (0-1); EOSINOPHILS # (AUTO) 0.2 X10'3 (0-0.9); EOSINOPHILS % (AUTO) 1.5 % (0-6); HEMATOCRIT 23.5 % (35.0-45.0); HEMOGLOBIN 7.7 g/dl (12.0-16.0); LYMPHOCYTES # (AUTO) 2.5 X10'3 (1.1-4.8); LYMPHOCYTES % (AUTO) 17.6 % (21-51); MEAN CORPUSCULAR HEMOGLOBIN 30.8 PG (27.0-31.0); MEAN CORPUSCULAR HGB CONC 32.7 g/dL (33.0-36.5); MEAN CORPUSCULAR VOLUME 94.3 FL (78-98); MEAN PLATELET VOLUME 7.7 FL (7.4-10.4); MONOCYTES # (AUTO) 0.8 X10'3 (0-0.9); NEUTROPHILS # (AUTO) 10.4 X10'3 (1.8-7.7); NEUTROPHILS % (AUTO) 74.6 % (42-75); PLATELET COUNT 100 X10'3 (140-440); RED BLOOD COUNT 2.49 X10'6 (4.20-5.60)
[2023-06-26 02:41] LABS: ALANINE AMINOTRANSFERASE 11 U/L (12-78); ALBUMIN 2.4 G/DL (3.4-5.0); ALBUMIN/GLOBULIN RATIO 0.8 (1.1-1.5); ALKALINE PHOSPHATASE 102 IU/L (46-116); ANION GAP 4 (8-16); ASPARTATE AMINO TRANSFERASE 22 U/L (10-37); BILIRUBIN,TOTAL 1.6 MG/DL (0.1-1.0); BLOOD UREA NITROGEN 10 MG/DL (7-18); BUN/CREATININE RATIO 7.8 (10.0-20.0); CALCIUM 7.4 MG/DL (8.5-10.1); CHLORIDE 110 MMOL/L (99-107); CREATININE 1.28 MG/DL (0.40-0.90); GLUCOSE 114 MG/DL (70-104); MAGNESIUM 1.8 MG/DL (1.5-2.4); PHOSPHORUS 2.7 MG/DL (2.3-4.5); POTASSIUM 3.5 MMOL/L (3.5-5.1); PREALBUMIN 9.2 MG/DL (19-36); SODIUM 140 MMOL/L (135-145); TOTAL CARBON DIOXIDE 25.8 MMOL/L (24-32); TOTAL PROTEIN 5.4 G/DL (6.4-8.2); eCRCL 45 ML/MIN; eGFR 42 ML/MIN
[2023-06-26 04:45] LABS: ABG BASE EXCESS -1.4 mmol/L (-2.0-2.0); ABG HCO3 23.3 mmol/L (22.0-26.0); ABG OXYGEN SATURATION 92.6 % (94-97); ABG PCO2 (T) 38.8 mmHg (32.0-45.0); ABG PH (T) 7.396 (7.350-7.450); ABG PO2 (T) 61.8 mmHg (75.0-100.0); FCOHb 0.1 % (0.0-3.9); FHHb 7.4 % (0.0-5.0); FMetHb 0.3 % (0.0-1.5); FO2Hb 92.2 % (94-97); MODE AC/PRVC; PATIENT TEMPERATURE 36.9; PEEP 5 cm H2O; RESPIRATORY RATE 14 b/min; TIDAL VOLUME 500 mL; TOTAL HEMOGLOBIN 8.3 G/dl (12.0-16.0)
[2023-06-26] MEDS ORDERED: Neutra Phos packet NG PRN (06:51)
[2023-06-26] MEDS ORDERED: traMADol 50MG tablet NG PRN (06:53)
[2023-06-26] MEDS: Dakins solution (1/4 strength) 473ml solution TP ONE (07:55)
[2023-06-26] MEDS: MULTIVIT-MIN/FERROUS GLUCONATE 9 MG/15 ML LIQUID NG SCH (08:42)
[2023-06-26] MEDS: thiamine 100mg tablet NG SCH (08:46)
[2023-06-26] MEDS: folic acid 1mg tablet NG SCH (08:46)
[2023-06-26] MEDS: magnesium hydroxide 30ml (MOM) UD suspension NG PRN (08:46)
[2023-06-26] MEDS: ringers solution, lacted 1,000 ML IV ONE (11:44)
[2023-06-26] MEDS: lactulose 20gm/30ml cup PO SCH (11:45)
[2023-06-26] MEDS: potassium Cl 40MEQ/1/2NS 520ml 520 ML IV PRN (12:15)
[2023-06-26] MEDS: metoprolol tartrate 25mg tablet PO SCH (16:30)
[2023-06-26 20:22] LABS: MAGNESIUM 2.4 MG/DL (1.5-2.4)
[2023-06-27] VITALS (34 sets, daily range): BP systolic 86–160; BP diastolic 48–79; PULSE 57–81; RESP 12–14; O2SAT 92–99
[2023-06-27 02:21] LABS: BASOPHILS # (AUTO) 0.1 X10'3 (0-0.2); BASOPHILS % (AUTO) 0.6 % (0-1); EOSINOPHILS # (AUTO) 0.2 X10'3 (0-0.9); EOSINOPHILS % (AUTO) 1.7 % (0-6); HEMATOCRIT 24.8 % (35.0-45.0); HEMOGLOBIN 8.1 g/dl (12.0-16.0); LYMPHOCYTES # (AUTO) 1.9 X10'3 (1.1-4.8); LYMPHOCYTES % (AUTO) 15.1 % (21-51); MEAN CORPUSCULAR HEMOGLOBIN 30.8 PG (27.0-31.0); MEAN CORPUSCULAR HGB CONC 32.5 g/dL (33.0-36.5); MEAN CORPUSCULAR VOLUME 94.5 FL (78-98); MEAN PLATELET VOLUME 8.4 FL (7.4-10.4); MONOCYTES # (AUTO) 1.1 X10'3 (0-0.9); MONOCYTES % (AUTO) 8.7 % (2-12); NEUTROPHILS # (AUTO) 9.2 X10'3 (1.8-7.7); NEUTROPHILS % (AUTO) 73.9 % (42-75); PLATELET COUNT 108 X10'3 (140-440); RED BLOOD COUNT 2.62 X10'6 (4.20-5.60); RED CELL DISTRIBUTION WIDTH 16.9 % (11.5-14.5); WHITE BLOOD COUNT 12.5 X10'3 (4.5-11.0)
[2023-06-27 02:34] LABS: ALANINE AMINOTRANSFERASE 7 U/L (12-78); ALBUMIN 2.7 G/DL (3.4-5.0); ALBUMIN/GLOBULIN RATIO 0.9 (1.1-1.5); ALKALINE PHOSPHATASE 154 IU/L (46-116); ANION GAP 4 (8-16); ASPARTATE AMINO TRANSFERASE 23 U/L (10-37); BILIRUBIN,TOTAL 1.9 MG/DL (0.1-1.0); BLOOD UREA NITROGEN 10 MG/DL (7-18); BUN/CREATININE RATIO 10.2 (10.0-20.0); CALCIUM 7.9 MG/DL (8.5-10.1); CHLORIDE 110 MMOL/L (99-107); CREATININE 0.98 MG/DL (0.40-0.90); GLUCOSE 104 MG/DL (70-104); MAGNESIUM 2.2 MG/DL (1.5-2.4); PHOSPHORUS 2.1 MG/DL (2.3-4.5); POTASSIUM 3.9 MMOL/L (3.5-5.1); SODIUM 140 MMOL/L (135-145); TOTAL CARBON DIOXIDE 25.8 MMOL/L (24-32); TOTAL PROTEIN 5.6 G/DL (6.4-8.2); eCRCL 59 ML/MIN; eGFR 58 ML/MIN
[2023-06-27 03:14] LABS: ABG BASE EXCESS -1.2 mmol/L (-2.0-2.0); ABG OXYGEN SATURATION 94.8 % (94-97); ABG PCO2 (T) 36.7 mmHg (32.0-45.0); ABG PH (T) 7.416 (7.350-7.450); ABG PO2 (T) 71.9 mmHg (75.0-100.0); FCOHb 0.5 % (0.0-3.9); FHHb 5.2 % (0.0-5.0); FMetHb 0.3 % (0.0-1.5); PATIENT TEMPERATURE 37.4; PEEP 5 cm H2O; RESPIRATORY RATE 14 b/min; TIDAL VOLUME 500 mL; TOTAL HEMOGLOBIN 8.2 G/dl (12.0-16.0)
[2023-06-27] MEDS: VANCOMYCIN LEVEL IV ONE (08:11)
[2023-06-27] MEDS: pantoprazole 40 MG vial IV SCH (08:16)
[2023-06-27] MEDS: Dakins solution (1/4 strength) 473ml solution TP ONE (10:00)
[2023-06-27] MEDS: erythromycin ethylsuccinate 200mg/5mL ORAL suspension PO SCH (10:59)
[2023-06-27] MEDS: VANCOMYCIN 750MG IV in NS 250 ML IV SCH (10:59)
[2023-06-27] MEDS: metoprolol tartrate 12.5mg (1/2 tablet) PO SCH (11:00)
[2023-06-27] MEDS ORDERED: iohexol 300mg/ml 100ml inj. ONE (14:41)
[2023-06-28] VITALS (35 sets, daily range): BP systolic 95–176; BP diastolic 45–80; PULSE 65–98; RESP 13–17; O2SAT 91–100
[2023-06-28 02:54] LABS: ABG BASE EXCESS -2.7 mmol/L (-2.0-2.0); ABG HCO3 21.7 mmol/L (22.0-26.0); ABG OXYGEN SATURATION 95.2 % (94-97); ABG PO2 (T) 72.7 mmHg (75.0-100.0); FCOHb 0.6 % (0.0-3.9); FHHb 4.8 % (0.0-5.0); FMetHb 0.3 % (0.0-1.5); FO2Hb 94.3 % (94-97); PATIENT TEMPERATURE 37.1; PEEP 5 cm H2O; RESPIRATORY RATE 14 b/min; TIDAL VOLUME 500 mL; TOTAL HEMOGLOBIN 8.3 G/dl (12.0-16.0)
[2023-06-28 03:58] LABS: ALANINE AMINOTRANSFERASE 8 U/L (12-78); ALBUMIN 2.3 G/DL (3.4-5.0); ALBUMIN/GLOBULIN RATIO 0.8 (1.1-1.5); ALKALINE PHOSPHATASE 165 IU/L (46-116); ANION GAP 6 (8-16); ASPARTATE AMINO TRANSFERASE 28 U/L (10-37); BILIRUBIN,TOTAL 1.5 MG/DL (0.1-1.0); BLOOD UREA NITROGEN 11 MG/DL (7-18); BUN/CREATININE RATIO 13.1 (10.0-20.0); CALCIUM 7.8 MG/DL (8.5-10.1); CHLORIDE 110 MMOL/L (99-107); CREATININE 0.84 MG/DL (0.40-0.90); GLUCOSE 103 MG/DL (70-104); MAGNESIUM 2.3 MG/DL (1.5-2.4); PHOSPHORUS 2.5 MG/DL (2.3-4.5); POTASSIUM 4.1 MMOL/L (3.5-5.1); SODIUM 141 MMOL/L (135-145); TOTAL CARBON DIOXIDE 24.9 MMOL/L (24-32); TOTAL PROTEIN 5.3 G/DL (6.4-8.2); eCRCL 68 ML/MIN; eGFR 69 ML/MIN
[2023-06-28 05:12] LABS: EOSINOPHILS % (AUTO) 1.6 % (0-6); HEMATOCRIT 22.2 % (35.0-45.0); HEMOGLOBIN 7.4 g/dl (12.0-16.0); MEAN CORPUSCULAR HEMOGLOBIN 31.6 PG (27.0-31.0); MEAN CORPUSCULAR HGB CONC 33.3 g/dL (33.0-36.5); MEAN CORPUSCULAR VOLUME 94.9 FL (78-98); MEAN PLATELET VOLUME 8.8 FL (7.4-10.4); PLATELET COUNT 102 X10'3 (140-440); RED BLOOD COUNT 2.34 X10'6 (4.20-5.60); RED CELL DISTRIBUTION WIDTH 17.6 % (11.5-14.5); WHITE BLOOD COUNT 9.4 X10'3 (4.5-11.0)
[2023-06-28 05:14] LABS: BASOPHILS % (AUTO) 0.4 % (0-1); LYMPHOCYTES % (AUTO) 16.3 % (21-51); MONOCYTES % (AUTO) 10.3 % (2-12); NEUTROPHILS # (AUTO) 6.7 X10'3 (1.8-7.7); NEUTROPHILS % (AUTO) 71.4 % (42-75)
[2023-06-28 05:15] LABS: EOSINOPHILS # (AUTO) 0.1 X10'3 (0-0.9); LYMPHOCYTES # (AUTO) 1.5 X10'3 (1.1-4.8)
[2023-06-28 05:58] LABS: ANISOCYTOSIS 1+; HYPOCHROMASIA 2+; PLATELET ESTIMATE DECREASED
[2023-06-28 05:59] LABS: SPHEROCYTES FEW
[2023-06-28] MEDS: VANCOMYCIN LEVEL IV ONE (22:07)
[2023-06-29] VITALS (37 sets, daily range): BP systolic 97–180; BP diastolic 52–88; PULSE 64–105; RESP 14–19; O2SAT 93–97
[2023-06-29 03:03] LABS: BASOPHILS % (AUTO) 0.3 % (0-1); EOSINOPHILS # (AUTO) 0.2 X10'3 (0-0.9); EOSINOPHILS % (AUTO) 1.7 % (0-6); HEMATOCRIT 24.4 % (35.0-45.0); HEMOGLOBIN 7.9 g/dl (12.0-16.0); LYMPHOCYTES # (AUTO) 1.8 X10'3 (1.1-4.8); LYMPHOCYTES % (AUTO) 16.3 % (21-51); MEAN CORPUSCULAR HEMOGLOBIN 30.9 PG (27.0-31.0); MEAN CORPUSCULAR HGB CONC 32.4 g/dL (33.0-36.5); MEAN CORPUSCULAR VOLUME 95.2 FL (78-98); MEAN PLATELET VOLUME 9.7 FL (7.4-10.4); MONOCYTES # (AUTO) 1.2 X10'3 (0-0.9); MONOCYTES % (AUTO) 10.8 % (2-12); NEUTROPHILS # (AUTO) 7.8 X10'3 (1.8-7.7); NEUTROPHILS % (AUTO) 70.9 % (42-75); PLATELET COUNT 107 X10'3 (140-440); RED BLOOD COUNT 2.56 X10'6 (4.20-5.60); RED CELL DISTRIBUTION WIDTH 18.2 % (11.5-14.5); WHITE BLOOD COUNT 11.1 X10'3 (4.5-11.0)
[2023-06-29 03:12] LABS: ALANINE AMINOTRANSFERASE 7 U/L (12-78); ALBUMIN/GLOBULIN RATIO 0.6 (1.1-1.5); ALKALINE PHOSPHATASE 179 IU/L (46-116); ANION GAP 5 (8-16); ASPARTATE AMINO TRANSFERASE 28 U/L (10-37); BILIRUBIN,TOTAL 1.2 MG/DL (0.1-1.0); BLOOD UREA NITROGEN 14 MG/DL (7-18); BUN/CREATININE RATIO 15.7 (10.0-20.0); CALCIUM 7.9 MG/DL (8.5-10.1); CHLORIDE 110 MMOL/L (99-107); CREATININE 0.89 MG/DL (0.40-0.90); GLUCOSE 125 MG/DL (70-104); MAGNESIUM 2.2 MG/DL (1.5-2.4); PHOSPHORUS 2.8 MG/DL (2.3-4.5); POTASSIUM 4.8 MMOL/L (3.5-5.1); SODIUM 141 MMOL/L (135-145); TOTAL PROTEIN 5.5 G/DL (6.4-8.2); eCRCL 65 ML/MIN; eGFR 64 ML/MIN
[2023-06-29 04:54] LABS: ABG BASE EXCESS -1.7 mmol/L (-2.0-2.0); ABG HCO3 22.9 mmol/L (22.0-26.0); ABG OXYGEN SATURATION 97.1 % (94-97); ABG PCO2 (T) 38.6 mmHg (32.0-45.0); ABG PH (T) 7.393 (7.350-7.450); ABG PO2 (T) 93.1 mmHg (75.0-100.0); FCOHb 0.2 % (0.0-3.9); FHHb 2.9 % (0.0-5.0); FMetHb 0.3 % (0.0-1.5); FO2Hb 96.6 % (94-97); PATIENT TEMPERATURE 37.3; PEEP 5 cm H2O; RESPIRATORY RATE 14 b/min; TIDAL VOLUME 500 mL; TOTAL HEMOGLOBIN 8.5 G/dl (12.0-16.0)
[2023-06-29] MEDS ORDERED: albumin (human) 25% 100ml IV 100 ML in normal saline 500ml IV soln 400 ML IV ONE (06:55)
[2023-06-29] MEDS: albumin (human) 25% 100ml IV 500 ML IV ONE (08:07)
[2023-06-29] MEDS ORDERED: acetaminophen 325mg tablet NG PRN (15:00)
[2023-06-29] MEDS ORDERED: acetaminophen 325mg tablet OGT PRN (15:03)
[2023-06-29] MEDS ORDERED: gabapentin 100mg capsule OGT PRN (15:04)
[2023-06-29] MEDS ORDERED: magnesium hydroxide 30ml (MOM) UD suspension OGT PRN (15:04)
[2023-06-29] MEDS ORDERED: traMADol 50MG tablet OGT PRN (15:06)
[2023-06-29] MEDS ORDERED: Neutra Phos packet OGT PRN (15:06)
[2023-06-29] MEDS ORDERED: POTASSIUM CHLORIDE 20 MEQ/15 ML oral solution OGT PRN (15:08)
[2023-06-29] MEDS: lactulose 20gm/30ml cup OGT SCH (20:29)
[2023-06-29] MEDS: metoprolol tartrate 12.5mg (1/2 tablet) OGT SCH (20:30)
[2023-06-29] MEDS: erythromycin ethylsuccinate 200mg/5mL ORAL suspension OGT SCH (20:30)
[2023-06-29] MEDS: VANCOMYCIN 750MG IV in NS 250 ML IV SCH (21:59)
[2023-06-29] MEDS: furosemide 20 MG/2 ML vial IV SCH (21:59)
[2023-06-30] VITALS (61 sets, daily range): BP systolic 93–226; BP diastolic 40–105; PULSE 60–93; RESP 14–20; TEMP 99–102.1; O2SAT 91–99
[2023-06-30 00:38] LABS: BASOPHILS % (AUTO) 0.3 % (0-1); EOSINOPHILS # (AUTO) 0.2 X10'3 (0-0.9); EOSINOPHILS % (AUTO) 1.5 % (0-6); LYMPHOCYTES # (AUTO) 1.6 X10'3 (1.1-4.8); LYMPHOCYTES % (AUTO) 14.5 % (21-51); MEAN CORPUSCULAR HGB CONC 32.3 g/dL (33.0-36.5); MEAN CORPUSCULAR VOLUME 95.7 FL (78-98); MEAN PLATELET VOLUME 9.6 FL (7.4-10.4); MONOCYTES # (AUTO) 1.1 X10'3 (0-0.9); MONOCYTES % (AUTO) 10.4 % (2-12); NEUTROPHILS # (AUTO) 7.9 X10'3 (1.8-7.7); NEUTROPHILS % (AUTO) 73.3 % (42-75); PLATELET COUNT 90 X10'3 (140-440); RED BLOOD COUNT 2.16 X10'6 (4.20-5.60); WHITE BLOOD COUNT 10.8 X10'3 (4.5-11.0)
[2023-06-30 00:54] LABS: HEMATOCRIT 20.6 % (35.0-45.0); HEMOGLOBIN 6.7 g/dl (12.0-16.0)
[2023-06-30 01:05] LABS: APTT 41 SECONDS (22-32); INR 1.3 INR; PROTHROMBIN TIME 13.8 SECONDS (9.0-12.0)
[2023-06-30] MEDS: NORMAL SALINE IV ONE (01:57)
[2023-06-30] MEDS: DESMOPRESSIN IV ONE (01:57)
[2023-06-30 03:29] LABS: ABG BASE EXCESS -0.3 mmol/L (-2.0-2.0); ABG HCO3 24.8 mmol/L (22.0-26.0); ABG PCO2 (T) 44.1 mmHg (32.0-45.0); ABG PH (T) 7.371 (7.350-7.450); ABG PO2 (T) 76.6 mmHg (75.0-100.0); FCOHb 0.9 % (0.0-3.9); FHHb 4.9 % (0.0-5.0); FMetHb 0.3 % (0.0-1.5); FO2Hb 93.9 % (94-97); PATIENT TEMPERATURE 37.5; PEEP 5 cm H2O; TOTAL HEMOGLOBIN 6.2 G/dl (12.0-16.0)
[2023-06-30 03:56] LABS: ALANINE AMINOTRANSFERASE 8 U/L (12-78); ALBUMIN 2.4 G/DL (3.4-5.0); ALKALINE PHOSPHATASE 120 IU/L (46-116); ANION GAP 6 (8-16); ASPARTATE AMINO TRANSFERASE 26 U/L (10-37); BILIRUBIN,TOTAL 1.2 MG/DL (0.1-1.0); BLOOD UREA NITROGEN 15 MG/DL (7-18); BUN/CREATININE RATIO 17.6 (10.0-20.0); CALCIUM 7.5 MG/DL (8.5-10.1); CHLORIDE 110 MMOL/L (99-107); CREATININE 0.85 MG/DL (0.40-0.90); GLUCOSE 135 MG/DL (70-104); PHOSPHORUS 3.3 MG/DL (2.3-4.5); POTASSIUM 4.5 MMOL/L (3.5-5.1); PREALBUMIN 8.6 MG/DL (19-36); SODIUM 142 MMOL/L (135-145); TOTAL CARBON DIOXIDE 25.9 MMOL/L (24-32); TOTAL PROTEIN 4.8 G/DL (6.4-8.2); TRIGLYCERIDES 52 MG/DL (20-135); eCRCL 68 ML/MIN; eGFR 68 ML/MIN
[2023-06-30] MEDS ORDERED: propofol 10mg/ml 20ml vial IV PRN (04:50)
[2023-06-30] MEDS: propofol 1000mg/100ml bottle 100 ML IV SCH (05:02)
[2023-06-30] MEDS ORDERED: acetaminophen 1,000mg/100ml IV 100 ML IV SCH (05:09)
[2023-06-30] MEDS: acetaminophen 1,000mg/100ml IV 100 ML IV PRN (05:21)
[2023-06-30 07:18] LABS: BASOPHILS % (AUTO) 0.2 % (0-1); EOSINOPHILS # (AUTO) 0.1 X10'3 (0-0.9); EOSINOPHILS % (AUTO) 0.4 % (0-6); LYMPHOCYTES % (AUTO) 5.4 % (21-51); MEAN CORPUSCULAR HEMOGLOBIN 30.3 PG (27.0-31.0); MEAN CORPUSCULAR HGB CONC 32.2 g/dL (33.0-36.5); MEAN PLATELET VOLUME 8.8 FL (7.4-10.4); MONOCYTES # (AUTO) 1.9 X10'3 (0-0.9); MONOCYTES % (AUTO) 10.2 % (2-12); NEUTROPHILS # (AUTO) 15.3 X10'3 (1.8-7.7); NEUTROPHILS % (AUTO) 83.8 % (42-75); PLATELET COUNT 101 X10'3 (140-440); RED BLOOD COUNT 1.67 X10'6 (4.20-5.60); RED CELL DISTRIBUTION WIDTH 17.6 % (11.5-14.5); WHITE BLOOD COUNT 18.2 X10'3 (4.5-11.0)
[2023-06-30 07:25] LABS: HEMATOCRIT 15.7 % (35.0-45.0); HEMOGLOBIN 5.1 g/dl (12.0-16.0)
[2023-06-30] MEDS: MULTIVIT-MIN/FERROUS GLUCONATE 9 MG/15 ML LIQUID OGT SCH (08:26)
[2023-06-30] MEDS: thiamine 100mg tablet OGT SCH (08:27)
[2023-06-30] MEDS: folic acid 1mg tablet OGT SCH (08:27)
[2023-06-30] MEDS ORDERED: sevoflurane 250ml liquid IH ONE (09:42)
[2023-06-30 09:48] LABS: PLATELET COUNT 96 X10'3 (140-440)
[2023-06-30 10:26] LABS: APTT 42 SECONDS (22-32); D-DIMER 3.99 MG/L FEU (0-0.50); FIBRINOGEN 214 MG/DL (177-424); INR 1.5 INR
[2023-06-30] MEDS ORDERED: rocuronium 10mg/ml inj IV ONE ×2 (10:44)
[2023-06-30] MEDS: dextrose 50%-water 50ml dispensing syringe IV ONE (12:51)
[2023-06-30] MEDS: normal saline 1000ml 1,000 ML IV ONE ×2 (13:24→15:22)
[2023-06-30 13:30] LABS: BASOPHILS # (AUTO) 0.1 X10'3 (0-0.2); BASOPHILS % (AUTO) 0.2 % (0-1); EOSINOPHILS # (AUTO) 0.1 X10'3 (0-0.9); EOSINOPHILS % (AUTO) 0.4 % (0-6); HEMATOCRIT 24.1 % (35.0-45.0); HEMOGLOBIN 7.7 g/dl (12.0-16.0); LYMPHOCYTES # (AUTO) 1.5 X10'3 (1.1-4.8); LYMPHOCYTES % (AUTO) 6.5 % (21-51); MEAN CORPUSCULAR HEMOGLOBIN 29.3 PG (27.0-31.0); MEAN CORPUSCULAR VOLUME 91.4 FL (78-98); MEAN PLATELET VOLUME 8.9 FL (7.4-10.4); MONOCYTES % (AUTO) 9.1 % (2-12); NEUTROPHILS # (AUTO) 18.8 X10'3 (1.8-7.7); NEUTROPHILS % (AUTO) 83.8 % (42-75); PLATELET COUNT 71 X10'3 (140-440); RED BLOOD COUNT 2.63 X10'6 (4.20-5.60); RED CELL DISTRIBUTION WIDTH 16.9 % (11.5-14.5); WHITE BLOOD COUNT 22.4 X10'3 (4.5-11.0)
[2023-06-30] MEDS: NORepinephrine 8mg/ 250ml NS 250 ML IV SCH (16:02)
[2023-06-30] MEDS: NORepinephrine 8mg/ 250ml NS 250 ML IV ONE (16:03)
[2023-06-30 17:06] LABS: BASOPHILS # (AUTO) 0.1 X10'3 (0-0.2); BASOPHILS % (AUTO) 0.3 % (0-1); EOSINOPHILS # (AUTO) 0.2 X10'3 (0-0.9); EOSINOPHILS % (AUTO) 0.7 % (0-6); HEMATOCRIT 23.1 % (35.0-45.0); HEMOGLOBIN 7.4 g/dl (12.0-16.0); LYMPHOCYTES # (AUTO) 2.5 X10'3 (1.1-4.8); LYMPHOCYTES % (AUTO) 10.7 % (21-51); MEAN CORPUSCULAR HEMOGLOBIN 28.9 PG (27.0-31.0); MEAN CORPUSCULAR HGB CONC 31.9 g/dL (33.0-36.5); MEAN CORPUSCULAR VOLUME 90.5 FL (78-98); MEAN PLATELET VOLUME 7.9 FL (7.4-10.4); MONOCYTES # (AUTO) 2.3 X10'3 (0-0.9); MONOCYTES % (AUTO) 9.5 % (2-12); NEUTROPHILS # (AUTO) 18.7 X10'3 (1.8-7.7); NEUTROPHILS % (AUTO) 78.8 % (42-75); PLATELET COUNT 77 X10'3 (140-440); RED BLOOD COUNT 2.55 X10'6 (4.20-5.60); RED CELL DISTRIBUTION WIDTH 17.1 % (11.5-14.5); WHITE BLOOD COUNT 23.8 X10'3 (4.5-11.0)
[2023-06-30 17:33] LABS: TOTAL CELLS COUNTED 100
[2023-06-30 17:34] LABS: ANISOCYTOSIS 1+; PLATELET ESTIMATE DECREASED; POLYCHROMASIA FEW
[2023-06-30] MEDS: linezolid 600mg/300ml PREMIX 300 ML IV SCH (20:18)
[2023-07-01] VITALS (37 sets, daily range): BP systolic 3–164; BP diastolic 45–80; PULSE 60–87; RESP 11–16; O2SAT 93–98
[2023-07-01 02:16] LABS: BASOPHILS # (AUTO) 0.1 X10'3 (0-0.2); BASOPHILS % (AUTO) 0.6 % (0-1); EOSINOPHILS # (AUTO) 0.3 X10'3 (0-0.9); EOSINOPHILS % (AUTO) 1.4 % (0-6); HEMATOCRIT 25.2 % (35.0-45.0); HEMOGLOBIN 8.4 g/dl (12.0-16.0); LYMPHOCYTES % (AUTO) 14.9 % (21-51); MEAN CORPUSCULAR HEMOGLOBIN 29.9 PG (27.0-31.0); MEAN CORPUSCULAR HGB CONC 33.2 g/dL (33.0-36.5); MEAN PLATELET VOLUME 8.4 FL (7.4-10.4); MONOCYTES # (AUTO) 2.2 X10'3 (0-0.9); MONOCYTES % (AUTO) 10.8 % (2-12); NEUTROPHILS # (AUTO) 14.5 X10'3 (1.8-7.7); NEUTROPHILS % (AUTO) 72.3 % (42-75); PLATELET COUNT 140 X10'3 (140-440); RED CELL DISTRIBUTION WIDTH 17.6 % (11.5-14.5)
[2023-07-01 02:24] LABS: ALANINE AMINOTRANSFERASE 11 U/L (12-78); ALBUMIN 2.4 G/DL (3.4-5.0); ALBUMIN/GLOBULIN RATIO 0.8 (1.1-1.5); ALKALINE PHOSPHATASE 146 IU/L (46-116); ANION GAP 6 (8-16); ASPARTATE AMINO TRANSFERASE 32 U/L (10-37); BLOOD UREA NITROGEN 15 MG/DL (7-18); BUN/CREATININE RATIO 17.4 (10.0-20.0); CHLORIDE 108 MMOL/L (99-107); CREATININE 0.86 MG/DL (0.40-0.90); GLUCOSE 126 MG/DL (70-104); MAGNESIUM 1.6 MG/DL (1.5-2.4); PHOSPHORUS 3.1 MG/DL (2.3-4.5); POTASSIUM 3.7 MMOL/L (3.5-5.1); SODIUM 141 MMOL/L (135-145); TOTAL CARBON DIOXIDE 26.7 MMOL/L (24-32); TOTAL PROTEIN 5.6 G/DL (6.4-8.2); eCRCL 67 ML/MIN; eGFR 67 ML/MIN
[2023-07-01 03:14] LABS: ABG BASE EXCESS -2.6 mmol/L (-2.0-2.0); ABG HCO3 22.3 mmol/L (22.0-26.0); ABG OXYGEN SATURATION 95.5 % (94-97); ABG PCO2 (T) 38.7 mmHg (32.0-45.0); ABG PH (T) 7.378 (7.350-7.450); ABG PO2 (T) 80.3 mmHg (75.0-100.0); FCOHb 0.3 % (0.0-3.9); FHHb 4.5 % (0.0-5.0); FMetHb 0.3 % (0.0-1.5); FO2Hb 94.9 % (94-97); MODE ac prvc; PATIENT TEMPERATURE 36.9; PEEP 5 cm H2O; RESPIRATORY RATE 14 b/min; TIDAL VOLUME 500 mL
[2023-07-01] MEDS: furosemide 20 MG/2 ML vial IV SCH (14:11)
[2023-07-01] MEDS: propofol 1000mg/100ml bottle 100 ML IV PRN (20:27)
[2023-07-01] MEDS ORDERED: VANCOMYCIN LEVEL IV ONE (21:30)
[2023-07-02] VITALS (43 sets, daily range): BP systolic 96–175; BP diastolic 45–77; PULSE 58–87; RESP 10–18; O2SAT 91–99
[2023-07-02 02:13] LABS: BASOPHILS # (AUTO) 0.1 X10'3 (0-0.2); BASOPHILS % (AUTO) 1.1 % (0-1); EOSINOPHILS # (AUTO) 0.1 X10'3 (0-0.9); EOSINOPHILS % (AUTO) 1.1 % (0-6); HEMOGLOBIN 7.1 g/dl (12.0-16.0); LYMPHOCYTES # (AUTO) 1.6 X10'3 (1.1-4.8); LYMPHOCYTES % (AUTO) 16.2 % (21-51); MEAN CORPUSCULAR HGB CONC 33.1 g/dL (33.0-36.5); MEAN CORPUSCULAR VOLUME 90.7 FL (78-98); MEAN PLATELET VOLUME 8.2 FL (7.4-10.4); MONOCYTES # (AUTO) 1.1 X10'3 (0-0.9); MONOCYTES % (AUTO) 10.8 % (2-12); NEUTROPHILS % (AUTO) 70.8 % (42-75); PLATELET COUNT 118 X10'3 (140-440); RED BLOOD COUNT 2.36 X10'6 (4.20-5.60); RED CELL DISTRIBUTION WIDTH 18.1 % (11.5-14.5); WHITE BLOOD COUNT 9.9 X10'3 (4.5-11.0)
[2023-07-02 02:19] LABS: HEMATOCRIT 21.4 % (35.0-45.0)
[2023-07-02 02:28] LABS: ALANINE AMINOTRANSFERASE 12 U/L (12-78); ALBUMIN 1.8 G/DL (3.4-5.0); ALBUMIN/GLOBULIN RATIO 0.5 (1.1-1.5); ALKALINE PHOSPHATASE 157 IU/L (46-116); ANION GAP 2 (8-16); ASPARTATE AMINO TRANSFERASE 36 U/L (10-37); BILIRUBIN,TOTAL 1.2 MG/DL (0.1-1.0); BLOOD UREA NITROGEN 17 MG/DL (7-18); BUN/CREATININE RATIO 20.5 (10.0-20.0); CALCIUM 7.5 MG/DL (8.5-10.1); CHLORIDE 109 MMOL/L (99-107); CREATININE 0.83 MG/DL (0.40-0.90); GLUCOSE 102 MG/DL (70-104); MAGNESIUM 1.9 MG/DL (1.5-2.4); PHOSPHORUS 3.3 MG/DL (2.3-4.5); SODIUM 141 MMOL/L (135-145); TOTAL PROTEIN 5.2 G/DL (6.4-8.2); eCRCL 69 ML/MIN; eGFR 70 ML/MIN
[2023-07-02 03:36] LABS: ABG BASE EXCESS 2.5 mmol/L (-2.0-2.0); ABG OXYGEN SATURATION 91.5 % (94-97); ABG PCO2 (T) 41.5 mmHg (32.0-45.0); ABG PH (T) 7.432 (7.350-7.450); ABG PO2 (T) 60.2 mmHg (75.0-100.0); FCOHb 0.1 % (0.0-3.9); FHHb 8.5 % (0.0-5.0); FMetHb 0.3 % (0.0-1.5); FO2Hb 91.1 % (94-97); PATIENT TEMPERATURE 37.1; PEEP 5 cm H2O; RESPIRATORY RATE 14 b/min; TIDAL VOLUME 500 mL; TOTAL HEMOGLOBIN 7.7 G/dl (12.0-16.0)
[2023-07-02 03:47] LABS: PLATELET ESTIMATE DECREASED; TOTAL CELLS COUNTED 100
[2023-07-02 03:48] LABS: ANISOCYTOSIS 2+
[2023-07-02 03:49] LABS: HYPOCHROMASIA 1+; POLYCHROMASIA FEW
[2023-07-02 07:07] LABS: BASOPHILS # (AUTO) 0.1 X10'3 (0-0.2); BASOPHILS % (AUTO) 0.5 % (0-1); EOSINOPHILS # (AUTO) 0.3 X10'3 (0-0.9); HEMATOCRIT 23.9 % (35.0-45.0); HEMOGLOBIN 7.8 g/dl (12.0-16.0); LYMPHOCYTES # (AUTO) 2.6 X10'3 (1.1-4.8); LYMPHOCYTES % (AUTO) 19.1 % (21-51); MEAN CORPUSCULAR HEMOGLOBIN 29.6 PG (27.0-31.0); MEAN CORPUSCULAR HGB CONC 32.5 g/dL (33.0-36.5); MEAN CORPUSCULAR VOLUME 91.1 FL (78-98); MEAN PLATELET VOLUME 9.7 FL (7.4-10.4); MONOCYTES # (AUTO) 1.7 X10'3 (0-0.9); MONOCYTES % (AUTO) 12.7 % (2-12); NEUTROPHILS # (AUTO) 8.9 X10'3 (1.8-7.7); NEUTROPHILS % (AUTO) 65.7 % (42-75); PLATELET COUNT 129 X10'3 (140-440); RED BLOOD COUNT 2.62 X10'6 (4.20-5.60); RED CELL DISTRIBUTION WIDTH 17.5 % (11.5-14.5); WHITE BLOOD COUNT 13.5 X10'3 (4.5-11.0)
[2023-07-02] MEDS: metolazone 2.5mg tablet OGT SCH (11:00)
[2023-07-03] VITALS (36 sets, daily range): BP systolic 123–177; BP diastolic 51–81; PULSE 62–95; RESP 14–22; O2SAT 95–100
[2023-07-03 02:43] LABS: BASOPHILS % (AUTO) 0.4 % (0-1); EOSINOPHILS # (AUTO) 0.2 X10'3 (0-0.9); HEMATOCRIT 23.5 % (35.0-45.0); HEMOGLOBIN 7.5 g/dl (12.0-16.0); LYMPHOCYTES # (AUTO) 1.7 X10'3 (1.1-4.8); MEAN CORPUSCULAR HEMOGLOBIN 29.3 PG (27.0-31.0); MEAN CORPUSCULAR VOLUME 91.5 FL (78-98); MEAN PLATELET VOLUME 10.5 FL (7.4-10.4); MONOCYTES % (AUTO) 9.1 % (2-12); NEUTROPHILS # (AUTO) 8.3 X10'3 (1.8-7.7); NEUTROPHILS % (AUTO) 73.5 % (42-75); PLATELET COUNT 122 X10'3 (140-440); RED BLOOD COUNT 2.57 X10'6 (4.20-5.60); RED CELL DISTRIBUTION WIDTH 17.9 % (11.5-14.5); WHITE BLOOD COUNT 11.3 X10'3 (4.5-11.0)
[2023-07-03 02:54] LABS: ALANINE AMINOTRANSFERASE 22 U/L (12-78); ALBUMIN/GLOBULIN RATIO 0.5 (1.1-1.5); ALKALINE PHOSPHATASE 196 IU/L (46-116); ANION GAP 7 (8-16); ASPARTATE AMINO TRANSFERASE 53 U/L (10-37); BLOOD UREA NITROGEN 17 MG/DL (7-18); CALCIUM 7.2 MG/DL (8.5-10.1); CHLORIDE 106 MMOL/L (99-107); CREATININE 0.81 MG/DL (0.40-0.90); GLUCOSE 125 MG/DL (70-104); MAGNESIUM 1.7 MG/DL (1.5-2.4); PHOSPHORUS 3.1 MG/DL (2.3-4.5); PREALBUMIN 8.4 MG/DL (19-36); SODIUM 140 MMOL/L (135-145); TOTAL PROTEIN 5.9 G/DL (6.4-8.2); eCRCL 71 ML/MIN; eGFR 72 ML/MIN
[2023-07-03 03:10] LABS: ABG BASE EXCESS 4.4 mmol/L (-2.0-2.0); ABG HCO3 29.5 mmol/L (22.0-26.0); ABG OXYGEN SATURATION 96.4 % (94-97); ABG PCO2 (T) 46.9 mmHg (32.0-45.0); ABG PH (T) 7.416 (7.350-7.450); ABG PO2 (T) 83.5 mmHg (75.0-100.0); FCOHb 0.1 % (0.0-3.9); FHHb 3.6 % (0.0-5.0); FMetHb 0.3 % (0.0-1.5); MODE VENT - AC; PEEP 5 cm H2O; RESPIRATORY RATE 14 b/min; TIDAL VOLUME 500 mL; TOTAL HEMOGLOBIN 9.2 G/dl (12.0-16.0)
[2023-07-03] MEDS: furosemide 20 MG/2 ML vial IV ONE (09:25)
[2023-07-03] MEDS ORDERED: acetaminophen 325mg tablet NG PRN (10:38)
[2023-07-03] MEDS ORDERED: gabapentin 100mg capsule NG PRN (10:39)
[2023-07-03] MEDS ORDERED: magnesium hydroxide 30ml (MOM) UD suspension NG PRN (10:40)
[2023-07-03] MEDS ORDERED: POTASSIUM CHLORIDE 20 MEQ/15 ML oral solution NG PRN (10:42)
[2023-07-03] MEDS ORDERED: Neutra Phos packet NG PRN (10:42)
[2023-07-03] MEDS: traMADol 50MG tablet NG PRN (12:15)
[2023-07-03] MEDS: furosemide 40mg/4ml inj IV SCH (14:23)
[2023-07-03] MEDS: POTASSIUM BICARB 20meq eff tab 20 MEQ TABLET.EFF NG SCH (14:27)
[2023-07-03] MEDS: erythromycin ethylsuccinate 200mg/5mL ORAL suspension NG SCH (14:46)
[2023-07-03] MEDS: metoprolol tartrate 12.5mg (1/2 tablet) NG SCH (20:30)
[2023-07-03] MEDS: linezolid 600mg tablet NG SCH (20:30)
[2023-07-03] MEDS: metolazone 2.5mg tablet NG SCH (20:31)
[2023-07-04] VITALS (33 sets, daily range): BP systolic 117–183; BP diastolic 48–81; PULSE 70–99; RESP 9–19; O2SAT 83–98
[2023-07-04 02:42] LABS: BASOPHILS # (AUTO) 0.1 X10'3 (0-0.2); BASOPHILS % (AUTO) 0.6 % (0-1); EOSINOPHILS # (AUTO) 0.3 X10'3 (0-0.9); EOSINOPHILS % (AUTO) 2.3 % (0-6); HEMATOCRIT 25.3 % (35.0-45.0); HEMOGLOBIN 8.3 g/dl (12.0-16.0); MEAN CORPUSCULAR HEMOGLOBIN 29.6 PG (27.0-31.0); MEAN CORPUSCULAR HGB CONC 32.7 g/dL (33.0-36.5); MEAN CORPUSCULAR VOLUME 90.6 FL (78-98); MEAN PLATELET VOLUME 10.2 FL (7.4-10.4); MONOCYTES % (AUTO) 8.6 % (2-12); NEUTROPHILS % (AUTO) 70.5 % (42-75); PLATELET COUNT 136 X10'3 (140-440); RED BLOOD COUNT 2.79 X10'6 (4.20-5.60); RED CELL DISTRIBUTION WIDTH 16.7 % (11.5-14.5); WHITE BLOOD COUNT 11.4 X10'3 (4.5-11.0)
[2023-07-04 02:47] LABS: ALANINE AMINOTRANSFERASE 24 U/L (12-78); ALBUMIN 2.1 G/DL (3.4-5.0); ALBUMIN/GLOBULIN RATIO 0.5 (1.1-1.5); ALKALINE PHOSPHATASE 219 IU/L (46-116); ANION GAP -1 (8-16); ASPARTATE AMINO TRANSFERASE 66 U/L (10-37); BILIRUBIN,TOTAL 1.2 MG/DL (0.1-1.0); BLOOD UREA NITROGEN 16 MG/DL (7-18); BUN/CREATININE RATIO 19.3 (10.0-20.0); CALCIUM 8.5 MG/DL (8.5-10.1); CHLORIDE 101 MMOL/L (99-107); CREATININE 0.83 MG/DL (0.40-0.90); GLUCOSE 112 MG/DL (70-104); MAGNESIUM 1.8 MG/DL (1.5-2.4); PHOSPHORUS 3.1 MG/DL (2.3-4.5); POTASSIUM 3.5 MMOL/L (3.5-5.1); SODIUM 139 MMOL/L (135-145); TOTAL PROTEIN 6.4 G/DL (6.4-8.2); eCRCL 69 ML/MIN; eGFR 70 ML/MIN
[2023-07-04 03:20] LABS: ABG BASE EXCESS 11.2 mmol/L (-2.0-2.0); ABG HCO3 35.1 mmol/L (22.0-26.0); ABG OXYGEN SATURATION 93.2 % (94-97); ABG PCO2 (T) 44.2 mmHg (32.0-45.0); ABG PH (T) 7.519 (7.350-7.450); ABG PO2 (T) 65.5 mmHg (75.0-100.0); FCOHb 0.3 % (0.0-3.9); FHHb 6.8 % (0.0-5.0); FMetHb 0.3 % (0.0-1.5); FO2Hb 92.6 % (94-97); MODE VENT - PRVC; PATIENT TEMPERATURE 37.2; PEEP 5 cm H2O; RESPIRATORY RATE 14 b/min; TIDAL VOLUME 500 mL; TOTAL HEMOGLOBIN 8.8 G/dl (12.0-16.0)
[2023-07-04] MEDS: folic acid 1mg tablet NG SCH (07:31)
[2023-07-04] MEDS: MULTIVIT-MIN/FERROUS GLUCONATE 9 MG/15 ML LIQUID NG SCH (07:31)
[2023-07-04] MEDS: thiamine 100mg tablet NG SCH (07:33)
[2023-07-04] MEDS: hydrALAZINE 20mg/ml inj. IV PRN (12:33)
[2023-07-04] MEDS: erythromycin ethylsuccinate 200mg/5mL ORAL suspension NG SCH (22:12)
[2023-07-05] VITALS (25 sets, daily range): BP systolic 92–126; BP diastolic 42–74; PULSE 64–80; RESP 9–18; O2SAT 93–99
[2023-07-05 03:54] LABS: ALANINE AMINOTRANSFERASE 21 U/L (12-78); ALBUMIN/GLOBULIN RATIO 0.5 (1.1-1.5); ALKALINE PHOSPHATASE 213 IU/L (46-116); ANION GAP 1 (8-16); ASPARTATE AMINO TRANSFERASE 56 U/L (10-37); BILIRUBIN,TOTAL 1.1 MG/DL (0.1-1.0); BLOOD UREA NITROGEN 17 MG/DL (7-18); CALCIUM 8.7 MG/DL (8.5-10.1); CHLORIDE 98 MMOL/L (99-107); CREATININE 0.85 MG/DL (0.40-0.90); GLUCOSE 93 MG/DL (70-104); POTASSIUM 3.5 MMOL/L (3.5-5.1); SODIUM 138 MMOL/L (135-145); TOTAL CARBON DIOXIDE 39.4 MMOL/L (24-32); TOTAL PROTEIN 6.3 G/DL (6.4-8.2); eCRCL 68 ML/MIN; eGFR 68 ML/MIN
[2023-07-05 05:14] LABS: BASOPHILS # (AUTO) 0.1 X10'3 (0-0.2); BASOPHILS % (AUTO) 0.7 % (0-1); EOSINOPHILS # (AUTO) 0.3 X10'3 (0-0.9); EOSINOPHILS % (AUTO) 2.8 % (0-6); HEMATOCRIT 23.7 % (35.0-45.0); HEMOGLOBIN 7.9 g/dl (12.0-16.0); LYMPHOCYTES # (AUTO) 2.2 X10'3 (1.1-4.8); LYMPHOCYTES % (AUTO) 22.6 % (21-51); MEAN CORPUSCULAR HEMOGLOBIN 30.3 PG (27.0-31.0); MEAN CORPUSCULAR HGB CONC 33.3 g/dL (33.0-36.5); MEAN CORPUSCULAR VOLUME 90.8 FL (78-98); MEAN PLATELET VOLUME 8.2 FL (7.4-10.4); MONOCYTES # (AUTO) 0.7 X10'3 (0-0.9); MONOCYTES % (AUTO) 6.9 % (2-12); NEUTROPHILS # (AUTO) 6.4 X10'3 (1.8-7.7); PLATELET COUNT 132 X10'3 (140-440); RED BLOOD COUNT 2.61 X10'6 (4.20-5.60); WHITE BLOOD COUNT 9.6 X10'3 (4.5-11.0)
[2023-07-06] VITALS (23 sets, daily range): BP systolic 98–149; BP diastolic 45–74; PULSE 65–84; RESP 12–17; O2SAT 92–97
[2023-07-06 03:16] LABS: ALANINE AMINOTRANSFERASE 19 U/L (12-78); ALBUMIN/GLOBULIN RATIO 0.4 (1.1-1.5); ALKALINE PHOSPHATASE 211 IU/L (46-116); ANION GAP 0 (8-16); ASPARTATE AMINO TRANSFERASE 55 U/L (10-37); BILIRUBIN,TOTAL 1.1 MG/DL (0.1-1.0); BLOOD UREA NITROGEN 23 MG/DL (7-18); BUN/CREATININE RATIO 21.7 (10.0-20.0); CALCIUM 8.5 MG/DL (8.5-10.1); CHLORIDE 99 MMOL/L (99-107); CREATININE 1.06 MG/DL (0.40-0.90); GLUCOSE 110 MG/DL (70-104); POTASSIUM 4.9 MMOL/L (3.5-5.1); SODIUM 141 MMOL/L (135-145); TOTAL PROTEIN 6.5 G/DL (6.4-8.2); eCRCL 54 ML/MIN; eGFR 53 ML/MIN
[2023-07-06 03:59] LABS: TOTAL CARBON DIOXIDE 42.2 MMOL/L (24-32)
[2023-07-06 05:10] LABS: BASOPHILS % (AUTO) 0.4 % (0-1); EOSINOPHILS # (AUTO) 0.3 X10'3 (0-0.9); EOSINOPHILS % (AUTO) 4.4 % (0-6); HEMATOCRIT 22.8 % (35.0-45.0); HEMOGLOBIN 7.6 g/dl (12.0-16.0); LYMPHOCYTES # (AUTO) 1.8 X10'3 (1.1-4.8); LYMPHOCYTES % (AUTO) 22.4 % (21-51); MEAN CORPUSCULAR HEMOGLOBIN 30.6 PG (27.0-31.0); MEAN CORPUSCULAR HGB CONC 33.5 g/dL (33.0-36.5); MEAN CORPUSCULAR VOLUME 91.5 FL (78-98); MEAN PLATELET VOLUME 8.6 FL (7.4-10.4); MONOCYTES # (AUTO) 0.6 X10'3 (0-0.9); MONOCYTES % (AUTO) 7.6 % (2-12); NEUTROPHILS # (AUTO) 5.2 X10'3 (1.8-7.7); NEUTROPHILS % (AUTO) 65.2 % (42-75); PLATELET COUNT 108 X10'3 (140-440); RED CELL DISTRIBUTION WIDTH 17.1 % (11.5-14.5); WHITE BLOOD COUNT 7.9 X10'3 (4.5-11.0)
[2023-07-06 10:20] LABS: ABG BASE EXCESS 14.5 mmol/L (-2.0-2.0); ABG HCO3 39.5 mmol/L (22.0-26.0); ABG OXYGEN SATURATION 96.2 % (94-97); ABG PCO2 (T) 53.6 mmHg (32.0-45.0); ABG PH (T) 7.486 (7.350-7.450); ABG PO2 (T) 83.7 mmHg (75.0-100.0); FCOHb 0.7 % (0.0-3.9); FHHb 3.8 % (0.0-5.0); FLOW 3 L/min; FMetHb 0.3 % (0.0-1.5); FO2Hb 95.2 % (94-97); MODE NC; PATIENT TEMPERATURE 37.2; TOTAL HEMOGLOBIN 8.2 G/dl (12.0-16.0)
[2023-07-06] MEDS: furosemide 20 MG/2 ML vial IV SCH (13:54)
[2023-07-06] MEDS: POTASSIUM BICARB 20meq eff tab 20 MEQ TABLET.EFF NG SCH (14:00)
[2023-07-06] MEDS: metolazone 2.5mg tablet PO SCH (20:02)
[2023-07-07] VITALS (25 sets, daily range): BP systolic 99–139; BP diastolic 51–104; PULSE 65–86; RESP 10–17; O2SAT 91–97
[2023-07-07 02:53] LABS: ALANINE AMINOTRANSFERASE 17 U/L (12-78); ALBUMIN 1.9 G/DL (3.4-5.0); ALBUMIN/GLOBULIN RATIO 0.4 (1.1-1.5); ALKALINE PHOSPHATASE 201 IU/L (46-116); ANION GAP 1 (8-16); ASPARTATE AMINO TRANSFERASE 60 U/L (10-37); BILIRUBIN,TOTAL 0.9 MG/DL (0.1-1.0); BLOOD UREA NITROGEN 25 MG/DL (7-18); BUN/CREATININE RATIO 25.3 (10.0-20.0); CALCIUM 8.1 MG/DL (8.5-10.1); CHLORIDE 101 MMOL/L (99-107); CREATININE 0.99 MG/DL (0.40-0.90); GLUCOSE 116 MG/DL (70-104); MAGNESIUM 1.6 MG/DL (1.5-2.4); PHOSPHORUS 3.7 MG/DL (2.3-4.5); POTASSIUM 3.7 MMOL/L (3.5-5.1); PREALBUMIN 9.8 MG/DL (19-36); SODIUM 141 MMOL/L (135-145); TOTAL CARBON DIOXIDE 39.2 MMOL/L (24-32); TOTAL PROTEIN 6.4 G/DL (6.4-8.2); TRIGLYCERIDES 66 MG/DL (20-135); eCRCL 58 ML/MIN; eGFR 57 ML/MIN
[2023-07-07 03:52] LABS: BASOPHILS % (AUTO) 0.5 % (0-1); EOSINOPHILS # (AUTO) 0.4 X10'3 (0-0.9); EOSINOPHILS % (AUTO) 5.3 % (0-6); HEMATOCRIT 22.8 % (35.0-45.0); HEMOGLOBIN 7.4 g/dl (12.0-16.0); LYMPHOCYTES # (AUTO) 1.6 X10'3 (1.1-4.8); LYMPHOCYTES % (AUTO) 22.3 % (21-51); MEAN CORPUSCULAR HEMOGLOBIN 30.2 PG (27.0-31.0); MEAN CORPUSCULAR HGB CONC 32.5 g/dL (33.0-36.5); MEAN CORPUSCULAR VOLUME 93.2 FL (78-98); MEAN PLATELET VOLUME 8.4 FL (7.4-10.4); MONOCYTES # (AUTO) 0.6 X10'3 (0-0.9); MONOCYTES % (AUTO) 7.9 % (2-12); NEUTROPHILS # (AUTO) 4.7 X10'3 (1.8-7.7); PLATELET COUNT 101 X10'3 (140-440); RED BLOOD COUNT 2.45 X10'6 (4.20-5.60); WHITE BLOOD COUNT 7.4 X10'3 (4.5-11.0)
[2023-07-07 13:29] LABS: POTASSIUM 3.7 MMOL/L (3.5-5.1)
[2023-07-07 13:45] LABS: MAGNESIUM 1.5 MG/DL (1.5-2.4); PHOSPHORUS 3.3 MG/DL (2.3-4.5)
[2023-07-07] MEDS: metolazone 2.5mg tablet NG SCH (20:23)
[2023-07-08] VITALS (16 sets, daily range): BP systolic 95–138; BP diastolic 45–62; PULSE 64–89; RESP 13–26; O2SAT 74–96
[2023-07-08 03:29] LABS: BASOPHILS # (AUTO) 0.1 X10'3 (0-0.2); BASOPHILS % (AUTO) 1.4 % (0-1); EOSINOPHILS # (AUTO) 0.4 X10'3 (0-0.9); EOSINOPHILS % (AUTO) 5.1 % (0-6); HEMATOCRIT 22.6 % (35.0-45.0); HEMOGLOBIN 7.2 g/dl (12.0-16.0); LYMPHOCYTES # (AUTO) 1.6 X10'3 (1.1-4.8); LYMPHOCYTES % (AUTO) 23.2 % (21-51); MEAN CORPUSCULAR HEMOGLOBIN 29.9 PG (27.0-31.0); MEAN CORPUSCULAR HGB CONC 32.1 g/dL (33.0-36.5); MEAN PLATELET VOLUME 8.5 FL (7.4-10.4); MONOCYTES # (AUTO) 0.4 X10'3 (0-0.9); MONOCYTES % (AUTO) 6.2 % (2-12); NEUTROPHILS # (AUTO) 4.5 X10'3 (1.8-7.7); NEUTROPHILS % (AUTO) 64.1 % (42-75); PLATELET COUNT 82 X10'3 (140-440); RED BLOOD COUNT 2.43 X10'6 (4.20-5.60); RED CELL DISTRIBUTION WIDTH 17.5 % (11.5-14.5)
[2023-07-08 03:46] LABS: ALANINE AMINOTRANSFERASE 13 U/L (12-78); ALBUMIN/GLOBULIN RATIO 0.4 (1.1-1.5); ALKALINE PHOSPHATASE 190 IU/L (46-116); ANION GAP -2 (8-16); ASPARTATE AMINO TRANSFERASE 56 U/L (10-37); BILIRUBIN,TOTAL 0.9 MG/DL (0.1-1.0); BLOOD UREA NITROGEN 28 MG/DL (7-18); BUN/CREATININE RATIO 27.7 (10.0-20.0); CALCIUM 8.6 MG/DL (8.5-10.1); CHLORIDE 102 MMOL/L (99-107); CREATININE 1.01 MG/DL (0.40-0.90); GLUCOSE 102 MG/DL (70-104); MAGNESIUM 1.4 MG/DL (1.5-2.4); PHOSPHORUS 3.2 MG/DL (2.3-4.5); POTASSIUM 4.4 MMOL/L (3.5-5.1); SODIUM 142 MMOL/L (135-145); TOTAL PROTEIN 6.6 G/DL (6.4-8.2); eCRCL 57 ML/MIN; eGFR 56 ML/MIN
[2023-07-08 03:47] LABS: TOTAL CARBON DIOXIDE 41.6 MMOL/L (24-32)
[2023-07-08] MEDS: potassium Cl 20 mEq/100mL bag IV SCH (16:49)
[2023-07-08] MEDS ORDERED: acetaZOLAMIDE 250mg tablet NG SCH (20:00)
== END 2023-07-08 19:32 | DRG 711 ==
LOC: ER 14:33 → ED HOLD 17:09 → SUR 3N 19:10 → CICU 2S 06-20 15:17
PROVIDERS: ADMIT Internal Medicine; ATTEND Internal Medicine
PROC: BW211ZZ Computerized Tomography (CT Scan) of Abdomen and Pelvis using Low Osmolar Contrast (ICD-10-PCS; 2023-06-19)
PROC: 5A1955Z Respiratory Ventilation, Greater than 96 Consecutive Hours (ICD-10-PCS; 2023-06-20)
PROC: 0WPF0JZ Removal of Synthetic Substitute from Abdominal Wall, Open Approach (ICD-10-PCS; 2023-06-20)
PROC: 0DNW0ZZ Release Peritoneum, Open Approach (ICD-10-PCS; 2023-06-20)
PROC: 30233K1 Transfusion of Nonautologous Frozen Plasma into Peripheral Vein, Percutaneous Approach (ICD-10-PCS; 2023-06-20)
PROC: 30233R1 Transfusion of Nonautologous Platelets into Peripheral Vein, Percutaneous Approach (ICD-10-PCS; 2023-06-20)
PROC: 30233M1 Transfusion of Nonautologous Plasma Cryoprecipitate into Peripheral Vein, Percutaneous Approach (ICD-10-PCS; 2023-06-20)
PROC: 0BH17EZ Insertion of Endotracheal Airway into Trachea, Via Natural or Artificial Opening (ICD-10-PCS; 2023-06-20)
PROC: 0WQF0ZZ Repair Abdominal Wall, Open Approach (ICD-10-PCS; principal; 2023-06-20 12:08)
PROC: 0W3F0ZZ Control Bleeding in Abdominal Wall, Open Approach (ICD-10-PCS; 2023-06-21)
PROC: 06HY33Z Insertion of Infusion Device into Lower Vein, Percutaneous Approach (ICD-10-PCS; 2023-06-21)
PROC: 0W9930Z Drainage of Right Pleural Cavity with Drainage Device, Percutaneous Approach (ICD-10-PCS; 2023-06-25)
PROC: 02HV33Z Insertion of Infusion Device into Superior Vena Cava, Percutaneous Approach (ICD-10-PCS; 2023-06-25)
DX: T85.79XA Infection and inflammatory reaction due to other internal prosthetic devices, implants and grafts, initial encounter (principal); A41.02 Sepsis due to Methicillin resistant Staphylococcus aureus; J96.01 Acute respiratory failure with hypoxia; J90 Pleural effusion, not elsewhere classified; G93.40 Encephalopathy, unspecified; K43.0 Incisional hernia with obstruction, without gangrene; K75.9 Inflammatory liver disease, unspecified; E87.4 Mixed disorder of acid-base balance; D62 Acute posthemorrhagic anemia; L76.34 Postprocedural seroma of skin and subcutaneous tissue following other procedure; D68.9 Coagulation defect, unspecified; D69.6 Thrombocytopenia, unspecified; G61.81 Chronic inflammatory demyelinating polyneuritis; K92.2 Gastrointestinal hemorrhage, unspecified; R58 Hemorrhage, not elsewhere classified; K74.60 Unspecified cirrhosis of liver; E87.6 Hypokalemia; I10 Essential (primary) hypertension; E66.01 Morbid (severe) obesity due to excess calories; I86.8 Varicose veins of other specified sites; Y83.2 Surgical operation with anastomosis, bypass or graft as the cause of abnormal reaction of the patient, or of later complication, without mention of misadventure at the time of the procedure; K66.0 Peritoneal adhesions (postprocedural) (postinfection); Z68.33 Body mass index [BMI] 33.0-33.9, adult; Z90.49 Acquired absence of other specified parts of digestive tract; Z93.3 Colostomy status; Y92.89 Other specified places as the place of occurrence of the external cause; Y83.8 Other surgical procedures as the cause of abnormal reaction of the patient, or of later complication, without mention of misadventure at the time of the procedure; Y92.230 Patient room in hospital as the place of occurrence of the external cause
CPT/HCPCS: 36415; 36430; 36600; 70450; 71045; 74176; 74177; 76700; 76942; 80048; 80053; 80202; 80305; 80320; 81001; 82140; 82803; 82948; 83605; 83690; 83735; 84100; 84132; 84134; 84145; 84478; 84484; 85007; 85008; 85018; 85025; 85027; 85379; 85384; 85610; 85730; 86870; 86880; 86885; 86900; 86901; 86920; 86922; 87040; 87070; 87075; 87077; 87081; 87186; 87811; 92508; 92616; 93005; 93970; 94002; 94003; 94640; 94760; 94799; 96365; 97110; 97161; 97535; 99285; A4215; A4333; A4615; A4618; A4649; A5200; A6154; A6196; A6209; A6212; A6213; A6223; A6253; A6258; A6402; A6446; A6449; A7000; A7015; A9900; C1729; C1751; C1758; C9113; G0378; J0131; J0171; J0360; J0461; J0610; J0690; J0696; J1450; J1580; J1644; J1650; J1940; J2020; J2060; J2185; J2250; J2274; J2405; J2543; J2597; J2704; J3010; J3370; J3475; J3480; J3490; J7030; J7040; J7050; J7060; J7120; P9012; P9016; P9035; P9045; P9047; P9059; Q9967